=== PATIENT | female | born 1945 | race Caucasian/White ===

== ENCOUNTER → 2017-07-01 12:51 | Outpatient (CLI) | payer MEDICARE, OTHER, SELFPAY ==
--- NOTE | 2017-07-01 | IMM_PTH ---
PATIENT: YON RUBIO LOC: [facility] U#:[id number] AGE/SX: 79/F ROOM: RE07/01/[address]: Dr. Hood Burt MD : 1945 BED: DIS: SPEC #: [id number] RECD: 07/02/17 11:40 STATUS: CURT REQ #: [id number] PRAKASH: 07/01/17 00:[address]: Hood Burt DEPT: IMMUNOHISTOCHEMISTRY RECD BY: Teresa Marcano ENTERED: 07/02/17 11:41 SP TYPE: IMMUNO OTHR DR: MD Dr. Efrain Wu III, DO Tissues: Left breast, NOS Procedures: CK5-6 (add) CK8 (add) E-CAD (add) HER2 MAICO (add) KI-67 (add) P53 (add) ME (add) ER (initial) PHYSICIAN & INSTITUTION [place] [id number] SPECIMEN INFORMATION: Tissue Source: Left breast Clinical Info: Abnormal mammogram, previous history right breast cancer Specimen Number: [id number] CPT code: 24723, 97261 x4, 05687 x3 METHODOLOGY: Deparaffinized sections of prefer/formalin-fixed tissue or PAP/DQ stained slides are incubated with monoclonal/polyclonal antibodies/oligonucleotide probes. Localization is made via biotin free immunoperoxidase method. Appropriate controls are performed and reacted as expected. Results on target cell population are indicated in the following table: RESULTS: ANTIBODY / CLONE RESULT E-Cad (ECH-6) negative CK8 (62aibvC63) positive CK5-6 (D5 & 1684) negative Ki-67 (30-9) positive, low P53 (DO-7) positive, weak MORPHOMETRIC ANALYSIS ER (clone 6F11) >95%, strong ME (clone 16/1E2) >95%, strong Her-2Neu (clone CB11) 0 The prognostic test for HER2 is performed on formalin-fixed paraffin embedded tissue. A 3+ (positive) staining pattern is defined as intense, homogeneous, complete, circumferential membranous staining in >10% of contiguous tumor cells. A similar weak (2+) staining pattern is interpreted as equivocal. DEMI follow-up testing is recommended for all equivocal cases. Positivity/negativity for ER/ME is reported if > or < 1% of the tumor cells are immuno- reactive, respectively. The ASCO/CAP criteria is used for scoring. Reference: Journal of Clinical Oncology, 2013; 31:1474-8928 & 2010; 16:8926-8872. Duration of fixation: 9.5 Hrs; Sample Adequate: Yes. These assays have not been validated on decalcified tissues. Results should be interpreted with caution given the likelihood of false negativity on decalcified specimens. These tests were developed and their performance characteristics determined by [facility]. They may not have been cleared or approved by the U.S. Food and Drug Administration. The FDA has determined that such clearance or approval is not necessary. INTERPRETATION: Left breast, ultrasound-guided needle core biopsy: Invasive lobular carcinoma, nuclear grade 2. Positive for estrogen receptors (favorable prognostic indicator). Positive for progesterone receptors (favorable prognostic indicator). Negative for overexpression of DKV3aua. AM:krzysztof 07/05/17 Case has been reviewed in consultation with Dr. Champion who concurs with the above diagnosis. IDC:SJ
[2017-07-01 09:22] VITALS: BP 165/92; BMI 35.3
--- NOTE | 2017-07-01 09:30 | BRBX_PTH ---
PATIENT: YON RUBIO LOC: [facility] U#:[id number] AGE/SX: 79/F ROOM: RE07/01/[address]: Dr. Hood Burt MD : 1945 BED: DIS: SPEC #: [id number] RECD: 07/01/17 12:47 STATUS: CURT RONEL #: [id number] PRAKASH: 07/01/17 09:[address]: Hood Burt DEPT: SURGICAL PATHOLOGY RECD BY: Oumou Patino ENTERED: 07/01/17 14:13 SP TYPE: BREAST BX OTHR DR: MD Dr. Efrain Soni Jr., DO Tissues: Left breast, NOS Procedures: Surgery Specimen Level IV HEADER OPERATION: Ultrasound guided needle core biopsy, left breast PRE-OP DIAGNOSIS: Abnormal mammogram, previous history right breast cancer TISSUE SUBMITTED: Needle core biopsy, left breast ISCHEMIC TIME: <30 seconds FIXATION TIME: 9.5 hours MICROSCOPIC DIAGNOSIS Left breast, ultrasound-guided needle core biopsy: Invasive lobular carcinoma, nuclear grade 2 (1 cm in greatest length). ENOCH:krzysztof 07/02/17 COMMENT Immunohistochemistry ([id number]) supports the above diagnosis. ER/SD/Jui9mid studies are being performed on sections of tumor and the results from this study will be reported separately ([id number]). Please make reference to previous specimen ([id number]) right breast mass with axillary contents with diagnosis of invasive ductal carcinoma. Case has been reviewed in consultation with Dr. Angel who concurs with the above diagnosis. IDC:AM MICROSCOPIC DESCRIPTION Slides are reviewed. GROSS DESCRIPTION Received in fixative is one container labeled with the patient's name and designated needle core biopsy, left breast. The specimen consists of multiple elongated fragments of horne-yellow fibroadipose tissue that in aggregate measure 1.5 x 0.2 x 0.1 cm. The entire specimen is submitted in one cassette. / ENOCH:krzysztof 07/01/17 TC:0 CPT: 72786
== END ==
PROVIDERS: Family Provider Family Medicine; PCP Family Medicine; Visit Provider Surgery
DX: R92.8 Other abnormal and inconclusive findings on diagnostic imaging of breast (principal); Z85.3 Personal history of malignant neoplasm of breast
CPT/HCPCS: 88305; 88341; 88342

== ENCOUNTER 2017-07-15 10:09 | Observation (INO) | payer MEDICARE, OTHER, SELFPAY ==
[2017-07-15] VITALS (12 sets, daily range): BP systolic 125–160; BP diastolic 60–89; PULSE 76–104; RESP 14–18; TEMP 36.3–37; O2SAT 93–100; BMI 35.0
--- NOTE | 2017-07-15 | AXNB_PTH ---
PATIENT: YON RUBIO LOC: [facility] U#:[id number] AGE/SX: 71/F [place]OM: [facility] [place] RE07/15/[address]: Dr. Hood Burt MD : 1945 BED: 1 DIS: 07/16/2017 SPEC #: [id number] RECD: 07/15/17 09:05 STATUS: CURT RETommy #: [id number] PRAKASH: 07/15/17 00:[address]: Hood Burt DEPT: SURGICAL PATHOLOGY RECD BY: Teresa Marcano ENTERED: 07/15/17 10:31 SP TYPE: AX NODE BX OTHR DR: Dr. Roscoe Chaves III, MD Tissues: A - Axillary lymph node, NOS B - Axillary lymph node, NOS C - Axillary lymph node, NOS D - Left breast, NOS Procedures: Frozen Section (charge) Frozen Section Add'l ([facility] Surgery Specimen Level V Frozen (no charge) HEADER OPERATION: Left breast ultrasound-guided wire localization lumpectomy PRE-OP DIAGNOSIS: Invasive lobular breast cancer, left breast TISSUE SUBMITTED: A ? Left axillary sentinel lymph node tissue for FS at 0902, B ? Additional left axillary sentinel lymph node tissue for FS at 09, C ? Deep left axillary sentinel lymph node tissue for FS at 09, D - Left breast lumpectomy tissue to mammo at 0857, suture markings ? single long ? medial, double short ? superior, double long ? inferior FROZEN SECTION DIAGNOSIS A. Left axillary sentinel lymph node tissue, biopsy: Two out of two lymph nodes, negative for metastatic carcinoma. B. Additional left axillary sentinel lymph node tissue, biopsy: Two out of two lymph nodes, negative for metastatic carcinoma. C. Deep left axillary sentinel lymph node tissue, biopsy: One lymph node positive for metastatic carcinoma. SJ:krzysztof 07/15/17 MICROSCOPIC DIAGNOSIS A. Left axillary sentinel lymph node, biopsy: Two out of two lymph nodes, negative for metastatic carcinoma. See comment. B. Additional left axillary sentinel lymph node, biopsy: One out of two lymph nodes, positive for micrometastatic carcinoma. See comment. C. Deep left axillary sentinel lymph node tissue, biopsy: One lymph node, positive for metastatic carcinoma. See comment. D. Left breast, lumpectomy with needle localization: Invasive lobular carcinoma. The tumor is focally present at the anterior margin and the tumor is 0.1 cm away from the medial margin and <0.1 cm away from the superior margin. See cancer summary below. INVASIVE BREAST CANCER SUMMARY: Specimen ? partial breast Procedure ? excision with wire-guided localization Lymph node sampling ? sentinel lymph nodes Specimen integrity ? single intact specimen Specimen size ? 14 x 10 x 5 cm Specimen laterality - left Tumor site ? not specified Tumor size ? 6 x 4 x 2.5 cm Tumor focality ? single focus of invasive carcinoma Macroscopic and Microscopic extent of tumor: Skin ? invasive carcinoma does not invade into the dermis or epidermis. Nipple ? not applicable Skeletal muscle ? no skeletal muscle present Ductal carcinoma in situ (DCIS) ? not present Lobular carcinoma in situ (LCIS) ? not identified Histologic type of invasive carcinoma ? invasive lobular carcinoma Histologic Grade ([place] grade): Glandular/tubular differentiation - score 3 Nuclear pleomorphism - score 2 Mitotic count ? score 1 Overall grade - 2 (score of 6) Margins: Margins focally involved by invasive carcinoma. Invasive lobular carcinoma is present focally at the anterior margin. The invasive lobular carcinoma focally is present <0.1 cm away from the superior margin. Invasive lobular carcinoma is 0.1 cm away from the medial margin. Treatment effect ? effect of presurgical (neoadjuvant) therapy - no known presurgical therapy. Lymph-Vascular invasion ? not identified Dermal lymph-vascular invasion ? not identified Lymph nodes: Number of sentinel lymph nodes examined - 5 Total number of lymph nodes examined (sentinel and nonsentinel) - 5 Number of lymph nodes with macrometastases - 1 Number of lymph nodes with micrometastases - 1 Number of lymph nodes with isolated tumor cells - 0 Extranodal extension - present Method of evaluation of sentinel lymph nodes - H & E, multiple levels and IHC (specimen A & B). Additional pathologic findings ? fibrocystic changes and intraductal hyperplasia without atypia. Ancillary studies - previously performed on section of tumor ([id number] / [id number]). ER ? positive (>95%, strong) IA - positive (>95%, strong) Her2 roel - 0 Her2 by dual DEMI ? not performed Microcalcifications ? present in invasive carcinoma. Clinical history - Please make reference to previous specimen ([id number]) left breast, ultrasound-guided needle core biopsy with diagnosis of invasive lobular carcinoma. PATHOLOGIC STAGE: pT3 pN1a(sn) Mx The above summary is in compliance with [employer] [place] Path[employer] (CAP) Cancer Protocols Checklist and [place] Joint Committee on Cancer (AJCC), Staging Manual, 8th Ed. SJ:krzysztof 07/21/17 COMMENT Please make reference to previous specimen ([id number]) right breast mass with axillary contents with diagnosis of invasive ductal carcinoma. B. The focus of micrometastasis measures 1.75 mm in greatest dimension. Extranodal extension is not seen. C. The focus of metastasis measure 1.1 cm in greatest dimension. Extranodal extension is present. A, B & D. Immunohistochemistry ([id number]) supports the above diagnosis. MICROSCOPIC DESCRIPTION Slides are reviewed. GROSS DESCRIPTION A - Received fresh for frozen section diagnosis labeled with the patient's name is a specimen designated left axillary sentinel lymph node tissue. The specimen consists of two pieces of yellow adipose tissue containing nodule measuring in aggregate 4.5 x 3.5 x 2 cm. Two lymph nodes are identified measuring 2 and 3 cm in greatest dimension. The lymph nodes are submitted in entirety for frozen section diagnosis as follows: 1 ? frozen section, one bisected lymph node, 2 & 3 - frozen section, one bisected lymph node. / SJ:rg 07/15/17 B - Received fresh for frozen section diagnosis labeled with the patient's name is a specimen designated additional left axillary lymph node tissue. The specimen consists of two pieces of horne-yellow adipose tissue measuring in aggregate 4 x 4.5 x 1 cm. Two lymph nodes are identified measuring 1 and 2 cm in greatest dimension. The lymph nodes are submitted in entirety for frozen section diagnosis as follows: 1 ? one lymph node, 2 - one bisected lymph node. / SJ:rg 2/22/18 C - Received fresh for frozen section diagnosis labeled with the patient's name is a specimen designated deep left axillary sentinel lymph node tissue. The specimen consists of a piece of adipose tissue containing one nodule measuring 2.5 x 2 x 1 cm. The lymph node measures 1.5 cm in greatest dimension. The lymph node is submitted in entirety for frozen section diagnosis in one cassette as follows: one bisected lymph node. / : 07/15/17 D - Received fresh for intraoperative consultation labeled with the patient's name is a specimen designated left breast lumpectomy tissue. The specimen consists of a piece of fibroadipose tissue with needle localization measuring 14 x 10 x 5 cm. The specimen is oriented as follows: single long ? medial, double short ? superior, double long ? inferior. The specimen is inked as follows: anterior ? yellow, posterior ? black, superior ? blue, inferior ? green, medial ? red and lateral ? orange. A piece of skin is also noted laterally which measures 2 x 0.5 cm. Serial sections reveal a tumor mass measuring 6 x 4 x 2.5 cm. This mass is very close to the anterior and superior margin of the specimen. This information is conveyed to the surgeon intraoperatively. Sections of the rest of the specimen reveals horne-yellow adipose cut surfaces mixed with horne-white fibrous areas. Antis[employer] Weapons [employer] sections are submitted in 12 cassettes as follows: 1 ? perpendicular medial and lateral margins, 2 ? more sections of perpendicular margin, 3 ? perpendicular posterior and inferior margins, 4-8 ? hobbies and crafts sales representative sections of tumor with closest anterior margin, 9 ? closest superior margin perpendicular, 10 ? hobbies and crafts sales representative section adjacent to the tumor, 11 & 12 ? hobbies and crafts sales representative sections away from the tumor. / : 07/16/17 More sections are submitted as follows: 13 ? skin with adjacent lateral margin. / : 07/20/17 TC:0 CPT: 29882 x4, 12395 x3, 64852 x3, 19397 ADDENDUM ADDENDUM ADDENDUM ADDENDUM ADDENDUM ADDENDUM ADDENDUM ADDENDUM 09/08/2017 14:14 ADDENDUM 09/08/2017 14:14 ADDENDUM 09/08/2017 14:14 ADDENDUM 09/08/2017 14:14 ADDENDUM 09/08/2017 14:14 An order for Oncotype testing was received from Dr. Crawford. This necessitated case review, block and slide selection by pathologist at [facility]. Breast Cancer Recurrence Score = 15 Results of the complete Oncotype testing (Spotlight report) are viewable in EMR under: Reports - Pathology - Lab Pathology Report, Scanned.
--- NOTE | 2017-07-15 | IMM_PTH ---
PATIENT: YON RUBIO LOC: [facility] U#:[id number] AGE/SX: 71/F [place] [facility] [place]: Dr. Hood Burt MD : 1945 BED: 1 DIS: 07/16/2017 SPEC #: [id number] RECD: 07/19/17 12:57 STATUS: CURT REQ #: [id number] PRAKASH: 07/15/17 00:[address]: Hood Burt DEPT: IMMUNOHISTOCHEMISTRY RECD BY: Teresa Marcano ENTERED: 07/19/17 12:59 SP TYPE: IMMUNO OTHR DR: Dr. Roscoe Chaves III, MD Tissues: A - Axillary lymph node, NOS B - Axillary lymph node, NOS D - Left breast, NOS Procedures: E-CAD (initial) CK7 (add) Pankeratin (initial) Pankeratin (add) PHYSICIAN & INSTITUTION [place] [id number] SPECIMEN INFORMATION: Tissue Source: A ? Left axillary sentinel lymph node tissue, B ? Additional left axillary sentinel lymph node tissue, D ? Left breast, lumpectomy Clinical Info: Invasive lobular breast cancer, left Specimen Number: [id number] A1, A2, A3, B1, B2, D6 CPT code: 38452 x3, 42058 x8 METHODOLOGY: Deparaffinized sections of prefer/formalin-fixed tissue or PAP/DQ stained slides are incubated with monoclonal/polyclonal antibodies/oligonucleotide probes. Localization is made via biotin free immunoperoxidase method. Appropriate controls are performed and reacted as expected. Results on target cell population are indicated in the following table: RESULTS: ANTIBODY / CLONE RESULT Block A1 AE1-3 (AE1/AE3/PCK26) negative CK7 (OV-TL12/30) negative Block A2 AE1-3 (AE1/AE3/PCK26) negative CK7 (OV-TL12/30) negative Block A3 AE1-3 (AE1/AE3/PCK26) negative CK7 (OV-TL12/30) negative Block B1 AE1-3 (AE1/AE3/PCK26) negative CK7 (OV-TL12/30) negative Block B2 AE1-3 (AE1/AE3/PCK26) positive, micrometastasis CK7 (OV-TL12/30) positive, micrometastasis Block D6 E-Cad (ECH-6) negative These tests were developed and their performance characteristics determined by [facility]. They may not have been cleared or approved by the U.S. Food and Drug Administration. The FDA has determined that such clearance or approval is not necessary. INTERPRETATION: A. Left axillary sentinel lymph node tissue, biopsy: Two out of two lymph nodes, negative for metastatic carcinoma. B. Additional left axillary sentinel lymph node tissue, biopsy: One out of two lymph nodes positive for micrometastatic carcinoma. D. Left breast, lumpectomy: Invasive lobular carcinoma. SJ:krzysztof 07/21/17
[2017-07-15] MEDS: Cefazolin 2 GM in 0.9% Normal Saline 100 ML IV (08:22)
[2017-07-15] MEDS: Isosulfan Blue 1% 5 ML Vial (08:29)
--- NOTE | 2017-07-15 09:00 | HPBI_ITS ---
SURGICAL BREAST SPECIMEN RADIOGRAPH CLINICAL: Document presence of mass in biopsy specimen. FINDINGS: Specimen shows presence of mass. Electronically Signed: Zachary Yee MD at 9:28 EST Tel [phone], Service support , HPBI/Breast Biopsy Specimen
--- NOTE | 2017-07-15 09:45 | OP.PCM_ITS ---
Problem List (1) Breast cancer, female Status: Acute Qualifiers: Breast location: upper outer quadrant of breast Estrogen receptor status: positive Laterality: left Qualified Code(s): C50.412 - Malignant neoplasm of upper-outer quadrant of left female breast; Z17.0 - Estrogen receptor positive status [ER+] Report of Operation Date of Procedure: 07/15/17 Pre-Operative Diagnosis: c50.412 female breast cancer left breast upper outer quadrant Post-Operative Diagnosis: Same Surgery/Procedure Performed:: 1. 05120 Ultrasound-guided wire localization of left breast cancer. 2. 56071 Injection of 5 cc of isosulfan blue. 3. 68274 sentinel lymph node biopsy. 4. 27651 left partial mastectomy with axillary node dissection. 5. 82670 removal port Type of Anesthesia:: General Anesthesiologist: Jose Freedman Drains: 15 round David-Chong drain Estimated Blood Loss (mL): 50 cc Fluids Replaced: 900 cc Description of Procedure: Patient was brought into the operating room and placed in the supine position. Under excellent general anesthetic ultrasound was used to identify the malignancy in the upper outer quadrant of the left breast. I prepped the skin with alcohol and under ultrasound guidance I placed a Kopan's wire through the lesion. The wire was then cut. I wiped alcohol around the areolar complex and injected 5 cc of isosulfan blue in a circumareolar fashion. I massaged the breast for 5 minutes. The breast and axillary as well as the neck on the left side area were then sterilely prepped and draped in the usual fashion. I made an incision in the upper outer quadrant ellipsing around my previous biopsy site. Tito retractors were placed into the wound and a wide lumpectomy was performed in the upper outer quadrant going all the way down to the pectoralis major coming laterally. I marked my specimen single long medial, double short superior, double long inferior, and skin and wire coming out laterally. I made sure on the anterior superior aspect to stay very close to the skin. I then dissected into the axillary area identified a blue lymph node and took out 2 lymph nodes. As I started to inspect deeper I felt hard lymph nodes and decided that it was best that I do a standard axillary level 1 dissection. I sent a total of approximately 3 other lymph nodes out. Identified the axillary vein as well as the thoracodorsal and long thoracic nerve. I irrigated out my wound. I decided that I would take the catheter out from inside the dissection cavity. I dissected was able to identify the catheter cut the Prolene that were attached to it and started to pull the catheter out it was not coming out easily I dissected all the way up into the neck and at that point I decided to make a counterincision in the neck. With my counterincision in the neck I dissected all the way down to the internal jugular vein as I was pulling the catheter out I felt that given thought that I was able to pull it out carefully when I inspected the tip of my catheter I believe that I may have left and broken off a piece into the superior vena cava. I had good hemostasis. I brought in fluoroscopy to confirm that I think that I saw a piece of the catheter in the superior vena cava it did not appear to be floating around. I made a decision then that I would not do anything further as far as dissecting in the neck. I got my frozen section back, a lymph nodes in my deep lymph node was positive and some I dissected of the axillary area was justified. I inspected the axillary area again I saw no other suspicious lymph nodes in the area. I placed a 15 round David-Chong drain into the wound sutured it to the skin with 3-0 nylon. The lumpectomy site was closed with deep dermal stitches of 3- 0 Vicryl then a running 4-0 Monocryl. The neck incision was closed with deep dermal stitches of 3-0 Vicryl in a running 4-0 Monocryl. I obtained a portable chest x-ray but it was not good quality but I still think I see a piece of the catheter in the superior vena cava. I am going to obtain a standard chest x-ray and speak to the interventional radiologist to see if this is something that they might be able to remove. I am unsure if this is just being held on by a small piece of fibrinous material or if this is significantly stuck with scar tissue into the superior vena cava. The catheter that was in there was greater than 10 years old. - Admit VTE Documentation VTE Present on Admission: No VTE Mechan Device Prophylaxis: SCD's VTE Pharm Prophylaxis ordered?: No Reason prophylaxis not ordered:: Treatment Not Indicated
[2017-07-15] MEDS: Bupivacaine 0.25% 30 ML Vial (09:51)
--- NOTE | 2017-07-15 10:09 | RAD_ITS ---
STUDY: X-RAY CHEST REASON FOR EXAM: Female, 71 years old. Left vascular port removed. TECHNIQUE: Single AP portable view of the chest. COMPARISON: Comparison is made with prior study dated January 21, 2017. FINDINGS: The left-sided gerson catheter has been removed. The distal portion of the catheter is seen within the superior vena cava. Surgical clips are seen in the right axillary region. There is elevation of the right hemidiaphragm. Mild increased markings in the right midlung. This may represent atelectasis and/or early infiltrate. There is no demonstrated pleural abnormality. Normal size heart. Normal mediastinum and lazaro. Normal visualized pulmonary arteries. Normal visualized aortic arch and descending thoracic aorta. Normal visualized thoracic spine. There is degenerative osteoarthritis of the bilateral shoulders. There is no demonstrated abnormality of the visualized soft tissue structures of the upper abdomen. RAD/Chest 1 View (Portable) IMPRESSION: The distal portion of the gerson catheter is seen within the superior vena cava. Increased markings in the right mid lung. Electronically Signed: Zachary Yee MD at 10:53 EST Tel [phone], Service support ,
[2017-07-15 10:16] LABS: Bedside Glucose 92 mg/dL (70-110)
--- NOTE | 2017-07-15 11:19 | CT_ITS ---
STUDY: CT CHEST WITHOUT CONTRAST REASON FOR EXAM: Female, 71 years old. Removal of left portacatheter with possible remnant in the superior vena cava. History of prior left breast carcinoma and lumpectomy. RADIATION DOSAGE (If Supplied By Facility): CTDIvol = ( 14.49 ) mGy, DLP = ( 546.78 ) mGycm TECHNIQUE: Transaxial imaging was performed without the administration of intravenous contrast material. Multiplanar coronal and sagittal images were reformatted. Individualized dose optimization techniques were used for this CT. COMPARISON: Comparison is made with prior chest radiograph done earlier in the day. FINDINGS: Subcutaneous emphysema is seen in the left lower cervical region in keeping with the recent catheter removal. This also evidence for postsurgical changes in the left breast secondary to lumpectomy with placement of a drainage catheter seen in the breast and left axillary region. Residual portion of the catheter is seen within the superior vena cava, left brachiocephalic vein and proximal portion of the left subclavian vein. This is seen along the anterior wall of the venous structures suggestive of possible adherent to the endothelium. Increased linear markings at both lung bases suggestive of bibasilar atelectasis. Increased markings at the lung apices worse on the right side suggestive of a scarring. There is no demonstrated pleural abnormality. There are calcifications of the coronary arteries. There are multiple small lymph nodes within the mediastinum, which are normal in size and morphology most compatible with reactive lymph hyperplasia. Normal hilar regions. Normal unenhanced pulmonary arteries. There is atherosclerotic calcification of the aortic arch . There are multi-level degenerative changes of the thoracic spine. There is no demonstrated abnormality of the visualized upper abdomen. CT/Chest without Contrast IMPRESSION: A piece of the aortic catheter is seen within the superior vena cava, left brachiocephalic vein and proximal portion of the left subclavian vein. This lies along the anterior aspect of the vessels. This may represent endothelialization. Status post left breast surgery with postoperative changes. Electronically Signed: Zachary Yee MD at 12:04 EST Tel [phone], Service support ,
[2017-07-15] MEDS: Lactated Ringers 1,000 ML 100 ML IV ×2 (12:12→23:43)
[2017-07-15] MEDS: Losartan Potassium 50 MG Tablet PO (14:54)
[2017-07-15] MEDS: Cefazolin 1 GM/50 ML BAG IV ×2 (14:57→21:16)
--- NOTE | 2017-07-15 16:25 | NURSING ---
Care assumed at this time.
[2017-07-15] MEDS: oxyCODONE 5 MG Tablet PO (20:12)
[2017-07-16] VITALS (7 sets, daily range): BP systolic 125–147; BP diastolic 65–77; PULSE 79–102; RESP 16–18; TEMP 36.8–38.1; O2SAT 93–97
[2017-07-16] MEDS: Cefazolin 1 GM/50 ML BAG IV (06:03)
[2017-07-16] MEDS: HYDROCHLOROTHIAZIDE 12.5 MG CAPSULE PO (09:14)
--- NOTE | 2017-07-16 10:50 | NURSING ---
Was asked to see patient for Reach to Recovery referral. ACS number given to patient if she would be interested in the Reach to Recovery program. Pt has been through breast cancer in the past and states she knows others as well. Local support group information given as well. reviewed dressing and drain care wit patient and . demonstrated all of this with them as well. teaching packet given as well as form to record SISSY drainage. Pt aware to bring form to follow up appointment as well. Pt and deny questions.
[2017-07-16] MEDS: Lactated Ringers 1,000 ML 100 ML IV (11:07)
--- NOTE | 2017-07-16 12:16 | PCM.DC.BS ---
Discharge Diet: No Restrictions Discharge Activity: May Not Drive - for 2-3 days or while taking narcotic pain meds. May shower in (days): 1 Lifting Restrictions: 10 pounds for 1 week. Call your doctor if your incision/area has: Continuous Slow Oozing, Sudden Increased Bleeding Call your doctor if you observe: Fever of 101 or Higher Suture Line Care: Avoid Pulling/Pushing, Avoid Pinching/Bending Remove Dressing in (days):: 1 - Remove bulky dressing tomorrow. May leave any opsite dressing for 3-4 days. Keep dressing in place until your follow-up appointment. Additional Dressing/Incision Instructions:: Remove bulky dressing tomorrow. May leave any opsite dressing for 3-4 days. Keep dressing in place until your follow-up appointment. Allergies/Adverse Reactions: Allergies atorvastatin [From Lipitor] Allergy (Mild, Verified 07/14/17 13:20) Unknown ergocalciferol (vitamin D2) [From Vitamin D2] Allergy (Mild, Verified 07/14/17 13:20) Unknown Medications to take at Discharge hydrochlorothiazide 12.5 mg tablet 12.5 mg PO QDAY 07/01/17 losartan 50 mg tablet 50 mg PO LUNCH 07/01/17 metformin 500 mg tablet 500 mg PO DAILY 07/01/17 potassium chloride ER 20 mEq tablet,extended release 20 meq PO LUNCH 07/01/17 Loratadine [Claritin] 10 mg PO PRN PRN 07/14/17 Primary Care Physician: Roscoe Chaves III, MD [Primary Care Provider] -
--- NOTE | 2017-07-16 12:17 | PCM.PN.SRG ---
Patient Problems: Active and Suspected Problems (Last Reviewed 07/14/17 @ 16:38 by Hood Burt MD) Breast cancer, female (Acute) Subjective: CAT scan of the chest obtained yesterday showed that the catheter had epithelialized into the superior vena cava. I do not believe that there is anything further surgical we need to do for her at this time. Her pain is well controlled. Objective: Dressing is dry - Physical Exam Vital Signs Temp Pulse Resp BP Pulse Ox 99.8 F H 95 18 140/65 H 93 07/16/17 09:08 07/16/17 10:00 07/16/17 09:08 07/16/17 09:08 07/16/17 09:08 Oxygen Flow Rate 1 Oxygen Delivery Method Room Air Weight: 204 lb 2.369 oz Body Mass Index (BMI) 35.0 Finger Stick Blood Glucose 92 Intake and Output for Last 24 Hours 07/14/17 07/15/17 07/16/17 23:59 23:59 23:59 Intake Total 3516 / 3516 627 / 627 Output Total 330 / 330 223 / 223 Balance 3186 / 3186 404 / 404 Assessment/Plan Active and Suspected Problems (Last Reviewed 07/14/17 @ 16:38 by Hood Burt MD) Breast cancer, female (Acute) Postoperative day #1 Patient is stable to be discharged today.
[2017-07-16] MEDS: Losartan Potassium 50 MG Tablet PO (12:29)
== END 2017-07-16 13:44 | disposition home or self-care (01) ==
LOC: SDC 11:19
PROVIDERS: Admitting Provider Surgery; Family Provider Family Medicine; PCP Family Medicine; Visit Provider Surgery
PROC: (CPT 19301; principal; 2017-07-15 08:00)
DX: C50.412 Malignant neoplasm of upper-outer quadrant of left female breast (principal); Z17.0 Estrogen receptor positive status [ER+]; Z79.899 Other long term (current) drug therapy; I10 Essential (primary) hypertension; Z79.84 Long term (current) use of oral hypoglycemic drugs; K58.9 Irritable bowel syndrome, unspecified; E11.9 Type 2 diabetes mellitus without complications
CPT/HCPCS: 19302; 36589; 38900; 71045; 71250; 76000; 76098; 82962; 88305; 88307; 88331; 88332; 88341; 88342; 96361; 96365; 96366; 99218; J7120; G0378; G0379; J2405; Q9968

== ENCOUNTER 2017-07-29 12:51 | Observation (INO) | payer MEDICARE, OTHER, SELFPAY ==
[2017-07-29] VITALS (11 sets, daily range): BP systolic 116–174; BP diastolic 66–89; PULSE 90–109; RESP 16–18; TEMP 36.4–37; O2SAT 92–100; BMI 34.7
--- NOTE | 2017-07-29 | BRBX_PTH ---
PATIENT: YON RUBIO LOC: [facility] U#:[id number] AGE/SX: 71/F ROOM: OH315 RE07/29/[address]: Dr. Hood Burt MD : 1945 BED: 1 DIS: 07/30/2017 SPEC #: [id number] RECD: 07/29/17 14:27 STATUS: CURT RETommy #: [id number] PRAKASH: 07/29/17 00:[address]: Hood Burt DEPT: SURGICAL PATHOLOGY RECD BY: Steven Greene ENTERED: 07/29/17 14:28 SP TYPE: BREAST BX OTHR DR: Dr. Roscoe Chaves III, MD Tissues: A - Left breast, NOS B - Left breast, NOS C - Left breast, NOS D - Left breast, NOS E - Axilla, NOS Procedures: Surgery Specimen Level IV HEADER OPERATION: Brest lumpectomy, revision PRE-OP DIAGNOSIS: Malignant neoplasm left breast upper outer quadrant, ER positive TISSUE SUBMITTED: A ? Left breast inferior medial margin, B ? Left breast medial superior margin, C ? Left breast old scar, D ? Left breast most medial margin FIXATION TIME: 30 hours MICROSCOPIC DIAGNOSIS A. Left breast, inferior medial margin: A few foci of invasive lobular carcinoma. Changes consistent with previous biopsy site. See comment. Focal intraductal hyperplasia without atypia. B. Left breast, medial superior margin: A few foci of invasive lobular carcinoma. Changes consistent with previous biopsy site. Focal intraductal hyperplasia without atypia. A fibrous nodule with calcification. See comment. C. Old scar, anterior left breast: Skin with dermal fibrosis consistent with scar. Negative for carcinoma. D. Most medial margin, left breast: Negative for carcinoma. Changes consistent with previous biopsy site. Intraductal hyperplasia without atypia. ENOCH:krzysztof 08/03/17 COMMENT A. The specimen is not oriented. A few foci of invasive lobular carcinoma is present at one resection margin presumed to be old resection margin. The largest focus of carcinoma measures 0.4 cm in greatest dimension. The presumed new margin is free of tumor and 0.6 cm away from the tumor. Skeletal muscle is also noted in the specimen and free of tumor. B. The largest focus of invasive carcinoma measures 0.5 cm in greatest dimension. A focus of invasive carcinoma is also present at one resection margin presumed to be old resection margin. The presumed new resection margin is 0.4 cm away from the tumor. A & B. Immunohistochemistry ([id number]) supports the above diagnosis. Please make reference to previous specimen ([id number]) left breast, lumpectomy with needle localization with diagnosis of invasive lobular carcinoma. Please refer to the cancer summary in specimen [id number]. Tumor staging remains the same. Case has been reviewed in consultation with Dr. Angel who concurs with the above diagnosis. IDC:AM MICROSCOPIC DESCRIPTION Slides are reviewed. GROSS DESCRIPTION A - Received in fixative is one container labeled with the patient's name and designated inferior medial margin left breast. The specimen consists of an irregular fragment of yellow fatty tissue measuring 5.5 x 4 x 1.7 cm. No orientation is provided. The external surface is inked in black ink and the specimen is serially sectioned to reveal yellow cut surfaces without mass lesions. The specimen is totally submitted in six cassettes. / AM: 07/30/17 B - Received in fixative is one container labeled with the patient's name and designated medial superior margin left breast. The specimen consists of an irregular fragment of yellow fatty tissue measuring 9 x 5 x 1.5 cm. No orientation is provided. The specimen is inked and serially sectioned to reveal homogenous yellow cut surfaces. No mass lesion is identified. Liability Claims Representative sections are submitted in six cassettes. / AM: 07/30/17 More sections are submitted in four more cassettes, 11-30. / SJ: 08/02/17 C - Received in fixative is one container labeled with the patient's name and designated old scar anterior left. The specimen consists of an ellipse of light horne skin with attached soft tissue measuring 7 x 1 x 0.6 cm. No cutaneous mass lesions are identified. Liability Claims Representative sections are submitted in one cassette. D - Received in fixative is one container labeled with the patient's name and designated most medial margin left. The specimen consists of an irregular fragment of horne-yellow fibrofatty tissue measuring 4 x 3.2 x 1.2 cm. No orientation is provided. The external surface is inked and the specimen serially sectioned to reveal yellow cut surfaces. The specimen is sectioned and submitted in its entirety in four cassettes. / AM:krzysztof 07/30/17 TC:0 CPT: 04104 x4
--- NOTE | 2017-07-29 | IMM_PTH ---
PATIENT: YON RUBIO LOC: MS3 U#:[id number] AGE/SX: 71/F ROOM: MS315 RE07/29/[address]: Dr. Hood Burt MD : 1945 BED: 1 DIS: 07/30/2017 SPEC #: [id number] RECD: 08/03/17 10:37 STATUS: CURT REQ #: [id number] PRAKASH: 07/29/17 00:[address]: Hood Burt DEPT: IMMUNOHISTOCHEMISTRY RECD BY: Teresa Marcano ENTERED: 08/03/17 10:42 SP TYPE: IMMUNO OTHR DR: Dr. Roscoe Chaves III, MD Tissues: A - Left breast, NOS B - Left breast, NOS Procedures: E-CAD (initial) CK8 (add) E-CAD (add) PHYSICIAN & INSTITUTION [place] [id number] SPECIMEN INFORMATION: Tissue Source: A ? Left breast inferior medial margin, B ? Left breast medial superior margin Clinical Info: Malignant neoplasm left breast UOQ, ER positive Specimen Number: [id number] A4, A5, B4 CPT code: 92335 x2, 99086 x4 METHODOLOGY: Deparaffinized sections of prefer/formalin-fixed tissue or PAP/DQ stained slides are incubated with monoclonal/polyclonal antibodies/oligonucleotide probes. Localization is made via biotin free immunoperoxidase method. Appropriate controls are performed and reacted as expected. Results on target cell population are indicated in the following table: RESULTS: ANTIBODY / CLONE RESULT Block A4 E-Cad (ECH-6) negative CK8 (45dwtqT16) positive Block A5 E-Cad (ECH-6) negative CK8 (61bgdlR41) positive Block B4 E-Cad (ECH-6) negative CK8 (79acmrZ59) positive These tests were developed and their performance characteristics determined by [facility]. They may not have been cleared or approved by the U.[place]. Food and Drug Administration. The FDA has determined that such clearance or approval is not necessary. INTERPRETATION: A. Left breast inferior medial margin: Invasive lobular carcinoma. B. Left breast medial superior margin: Invasive lobular carcinoma. SJ:krzysztof 08/03/17
[2017-07-29 07:55] LABS: Bedside Glucose 110 mg/dL (70-110)
[2017-07-29] MEDS: Cefazolin 2 GM in 0.9% Normal Saline 100 ML IV (09:58)
[2017-07-29] MEDS: Bupivacaine Mpf 0.5% 30 ML VIAL (10:30)
--- NOTE | 2017-07-29 10:36 | PCM.OPRPT ---
Problem List (1) Breast cancer, female Status: Acute Qualifiers: Breast location: upper outer quadrant of breast Estrogen receptor status: positive Laterality: left Qualified Code(s): C50.412 - Malignant neoplasm of upper-outer quadrant of left female breast; Z17.0 - Estrogen receptor positive status [ER+] Report of Operation Date of Procedure: 07/29/17 Pre-Operative Diagnosis: c50.412 female breast cancer upper outer quadrant left breast. z17.0 ER + Post-Operative Diagnosis: same Surgery/Procedure Performed:: 1. 45887 Placement of a right IJ PowerPort. 2 46361-95 Redo lumpectomy left upper outer quadrant of the breast Type of Anesthesia:: General Anesthesiologist: Francis Boston Specimen's removed: Breast tissue from upper outer quadrant of left breast, superior and medial tissue Description of Procedure: Patient was brought into the operating room and placed in the supine position. Under excellent LMA anesthesia I ultrasound the right neck and identified the internal jugular vein and marked the neck and chest appropriately. The neck and chest were then sterilely prepped and draped in the usual fashion. Local was injected into the neck. Seldinger's technique was used to gain access to the right internal jugular vein. Guidewire was placed over the needle the needle was removed. Fluoroscopy was used to confirm proper placement of the guidewire. I injected local in the chest opened up the previous incision used electrocautery and created a pocket for the port. A skin perri was made in the neck dilator was placed over the guidewire removed the dilator and sheath were placed over the guidewire and the dilator and guidewire were removed. I tunneled from the pocket over the collarbone into the neck and brought the catheter down. I used fluoroscopy to confirm proper length of the catheter I cut the catheter placed the locking hub on the catheter within the port on the catheter. I secured the 2 with the locking hub. It flushed and irrigated well and I flushed with 5 cc of hep flush. The port was sutured into the pocket with 2 sutures of 2-0 Prolene skin incisions were then brought together with deep dermal stitches of 3-0 Vicryl. Dermabond was applied sterile dressings were applied and the patient tolerated this part of the procedure well. The left chest was then prepped I remove the drain it was then sterilely prepped and draped in the usual fashion. I ellipsed out the old skin incision and sent it to pathology for permanent sectioning. With use of electrocautery I then removed starting from the medial inferiorly going medially to anteriorly superiorly and removed all the breast tissue here. I sent it to pathology. There were 3 specimens #1 inferior medial margin #2 medial superior margin and #3 most medial margin. I irrigated out the wound I placed a new drain into the old drain site suturing it in place with a 3-0 nylon. Yo was placed into the wound cavity the wound was then closed with deep dermal stitches of 3-0 Vicryl. Sterile dressings were applied Zi wrap was applied and the patient tolerated the procedure well. If my margins here are positive I do not think we have any other choice but to do a salvage mastectomy on her.
--- NOTE | 2017-07-29 10:40 | OP.PCM_ITS ---
Problem List (1) Breast cancer, female Status: Acute Qualifiers: Breast location: upper outer quadrant of breast Estrogen receptor status: positive Laterality: left Qualified Code(s): C50.412 - Malignant neoplasm of upper-outer quadrant of left female breast; Z17.0 - Estrogen receptor positive status [ER+] Report of Operation Date of Procedure: 07/29/17 Pre-Operative Diagnosis: c50.412 female breast cancer upper outer quadrant left breast. z17.0 ER + Post-Operative Diagnosis: same Surgery/Procedure Performed:: 1. 69549 Placement of a right IJ PowerPort. 2 58327-74 Redo lumpectomy left upper outer quadrant of the breast Type of Anesthesia:: General Anesthesiologist: Francis Boston Specimen's removed: Breast tissue from upper outer quadrant of left breast, superior and medial tissue Description of Procedure: Patient was brought into the operating room and placed in the supine position. Under excellent LMA anesthesia I ultrasound the right neck and identified the internal jugular vein and marked the neck and chest appropriately. The neck and chest were then sterilely prepped and draped in the usual fashion. Local was injected into the neck. Seldinger's technique was used to gain access to the right internal jugular vein. Guidewire was placed over the needle the needle was removed. Fluoroscopy was used to confirm proper placement of the guidewire. I injected local in the chest opened up the previous incision used electrocautery and created a pocket for the port. A skin perri was made in the neck dilator was placed over the guidewire removed the dilator and sheath were placed over the guidewire and the dilator and guidewire were removed. I tunneled from the pocket over the collarbone into the neck and brought the catheter down. I used fluoroscopy to confirm proper length of the catheter I cut the catheter placed the locking hub on the catheter within the port on the catheter. I secured the 2 with the locking hub. It flushed and irrigated well and I flushed with 5 cc of hep flush. The port was sutured into the pocket with 2 sutures of 2-0 Prolene skin incisions were then brought together with deep dermal stitches of 3-0 Vicryl. Dermabond was applied sterile dressings were applied and the patient tolerated this part of the procedure well. The left chest was then prepped I remove the drain it was then sterilely prepped and draped in the usual fashion. I ellipsed out the old skin incision and sent it to pathology for permanent sectioning. With use of electrocautery I then removed starting from the medial inferiorly going medially to anteriorly superiorly and removed all the breast tissue here. I sent it to pathology. There were 3 specimens #1 inferior medial margin #2 medial superior margin and # 3 most medial margin. I irrigated out the wound I placed a new drain into the old drain site suturing it in place with a 3-0 nylon. Yo was placed into the wound cavity the wound was then closed with deep dermal stitches of 3-0 Vicryl. Sterile dressings were applied Zi wrap was applied and the patient tolerated the procedure well. If my margins here are positive I do not think we have any other choice but to do a salvage mastectomy on her.
--- NOTE | 2017-07-29 12:10 | RAD_ITS ---
STUDY: X-RAY CHEST REASON FOR EXAM: Female, 71 years old. Port line placement TECHNIQUE: Single AP portable view of the chest. COMPARISON: 07/15/2017 FINDINGS: Right chest wall Mediport noted with tip in the mid SVC. No evidence of pneumothorax. Portion of an old catheter in the upper SVC is again noted There is hyperinflation of the lungs consistent with chronic obstructive lung disease (COPD). Again noted is elevated right hemidiaphragm. Lungs are essentially clear. There is no demonstrated pleural abnormality. There is mild cardiac enlargement. Normal mediastinum and lazaro. Normal visualized pulmonary arteries. Normal visualized aortic arch and descending thoracic aorta. Normal visualized thoracic spine. Normal visualized ribs, clavicles, and shoulders. There is no demonstrated abnormality of the visualized soft tissue structures of the upper abdomen. RAD/CXR for Line Placement IMPRESSION: Placement of right chest wall Mediport with tip in the upper SVC. Old left-sided vascular port catheter is noted as well. Lungs are clear. Electronically Signed: Minh Arrington DO at 12:30 EST Tel , Service support ,
[2017-07-29 12:21] LABS: Bedside Glucose 98 mg/dL (70-110)
[2017-07-29] MEDS: Losartan Potassium 50 MG Tablet PO (15:29)
[2017-07-29] MEDS: HYDROCHLOROTHIAZIDE 12.5 MG CAPSULE PO (15:29)
[2017-07-29] MEDS: Lactated Ringers 1,000 ML 75 ML IV (15:29)
[2017-07-29] MEDS: Cefazolin 1 GM/50 ML BAG IV (17:35)
[2017-07-30] MEDS: Cefazolin 1 GM/50 ML BAG IV (03:00)
[2017-07-30 03:01] VITALS: BP 154/81; PULSE 95; RESP 18; TEMP 36.8; O2SAT 98
[2017-07-30] MEDS: 0.9% NaCl Peripheral Flush Adult/Peds IV (05:35)
[2017-07-30 08:06] VITALS: BP 149/82; PULSE 93; RESP 16; TEMP 36.9; O2SAT 94
[2017-07-30] MEDS: HYDROCHLOROTHIAZIDE 12.5 MG CAPSULE PO (08:07)
--- NOTE | 2017-07-30 10:31 | PCM.DC.BS ---
Discharge Diet: No Restrictions Discharge Activity: May Not Drive - for 2-3 days or while taking narcotic pain meds. May shower in (days): 1 Lifting Restrictions: 10 pounds for 1 week. Call your doctor if your incision/area has: Continuous Slow Oozing, Sudden Increased Bleeding Call your doctor if you observe: Fever of 101 or Higher Suture Line Care: Avoid Pulling/Pushing, Avoid Pinching/Bending Remove Dressing in (days):: 1 - Remove bulky dressing tomorrow. May leave any opsite dressing for 3-4 days. Keep dressing in place until your follow-up appointment. Additional Dressing/Incision Instructions:: Remove bulky dressing tomorrow. May leave any opsite dressing for 3-4 days. Keep dressing in place until your follow-up appointment. Allergies/Adverse Reactions: Allergies atorvastatin [From Lipitor] Allergy (Mild, Verified 07/26/17 12:10) Unknown ergocalciferol (vitamin D2) [From Vitamin D2] Allergy (Mild, Verified 07/26/17 12:10) Unknown Medications to take at Discharge hydrochlorothiazide 12.5 mg tablet 12.5 mg PO QDAY 07/01/17 losartan 50 mg tablet 50 mg PO LUNCH 07/01/17 metformin 500 mg tablet 500 mg PO DAILY 07/01/17 potassium chloride ER 20 mEq tablet,extended release 20 meq PO LUNCH 07/01/17 Loratadine [Claritin] 10 mg PO PRN PRN 07/14/17 Primary Care Physician: Roscoe Chaves III, MD [Primary Care Provider] -
--- NOTE | 2017-07-30 10:53 | NURSING ---
In to review dressing and drain care with patient and . dressing changed as ordered. see intervention. pt tolerated well. lumpectomy teaching packet given and form for patient to record SISSY drainage given to patient. all questions answered. Dr Burt in to see patient.
== END 2017-07-30 11:30 | disposition home or self-care (01) ==
LOC: SDC 13:38 → MS3 13:38
PROVIDERS: Admitting Provider Surgery; Family Provider Family Medicine; PCP Family Medicine; Visit Provider Surgery
PROC: (CPT 19301; principal; 2017-07-29 09:15)
PROC: (CPT 19301; 2017-07-29 09:15)
DX: C50.412 Malignant neoplasm of upper-outer quadrant of left female breast (principal); Z17.0 Estrogen receptor positive status [ER+]; Z45.2 Encounter for adjustment and management of vascular access device; Z79.84 Long term (current) use of oral hypoglycemic drugs; Z79.899 Other long term (current) drug therapy; D55.9 Anemia due to enzyme disorder, unspecified; K58.9 Irritable bowel syndrome, unspecified; E11.9 Type 2 diabetes mellitus without complications
CPT/HCPCS: 19301; 36561; 71045; 77001; 82962; 88305; 88341; 88342; 96361; 96365; 96366; 99218; J3010; J7120; A4216; C1788; G0378; G0379; J2405

== ENCOUNTER 2019-10-13 18:45 | Inpatient (IN) | payer MEDICARE, OTHER, SELFPAY ==
[2019-10-13] VITALS (13 sets, daily range): BP systolic 161–193; BP diastolic 102–117; PULSE 108–142; RESP 18–24; TEMP 36.6–36.9; O2SAT 91–98; BMI 35.3; BMI 34.3; BMI 33.5; BMI 33.6
--- NOTE | 2019-10-13 07:20 | RAD_ITS ---
STUDY: X-RAY CHEST REASON FOR EXAM: Female, 74 years old. SOB AND CP X1 WEEK TECHNIQUE: Single AP portable view of the chest. COMPARISON: 07/29/2017. FINDINGS: The lungs are clear and expanded. Elevated right hemidiaphragm. There is no demonstrated pleural abnormality. There is mild cardiac enlargement. Normal mediastinum and lazaro. Normal visualized pulmonary arteries. Normal visualized aortic arch and descending thoracic aorta. There are diffuse degenerative changes of the visualized thoracic spine. Normal visualized ribs, clavicles, and shoulders. There is no demonstrated abnormality of the visualized soft tissue structures of the upper abdomen. RAD/Chest 1 View (Portable) IMPRESSION: No definite acute or significant abnormality seen. Electronically Signed: Leonard Carrion MD at 19:50 EDT , Service support ,
--- NOTE | 2019-10-13 19:04 | EKG12_ITS ---
Test Reason : SOB Blood Pressure : / mmHG Vent. Rate : 140 BPM Atrial Rate : 140 BPM P-R Int : 134 ms QRS Dur : 076 ms QT Int : 286 ms P-R-T Axes : 045 031 052 degrees QTc Int : 436 ms Sinus tachycardia with Premature atrial complexes Otherwise normal ECG Confirmed by GRAHAM ALVARADO, NANDA ([id number]), state editor AMALIA NAIK ([id number]) on 10/17/2019 2:28:40 PM Referred By: Husam Saab Confirmed By:NANDA STEVENSON MD
--- NOTE | 2019-10-13 19:05 | ED.DCSUM_ITS ---
History of Present Illness Chief Complaint: Shortness of Breath Informant: Patient Onset: Weeks Context: Sudden Onset Timing: Intermittent Quality: Pain Location: Central chest Current Severity: Moderate Maximum Severity: Severe Worsened by: Nothing Relieved by: Nothing Associated Symptoms: Shortness of breath Narrative: Patient is an elderly woman with history of hypertension, dyslipidemia who presents with chest pain that started greater than 1 week ago that was initially intermittent. The pain is more persistent and worse. She describes as a pain tight sensation. There is no radiation. There is associated shortness of breath with no nausea, vomiting or diaphoresis. The pain is not related to activity or change in position. The pain is not related to food intake. Patient denies history of hiatal hernia, reflux, black stool or maroon stool. She denies history of PE or DVT. She does report intermittent edema of the lower extremities and has 2 pillow orthopnea. She denies history of congestive heart failure. She denies orthopnea. She denies fever, chills night sweats. She denies rhinorrhea, postnasal drainage or sore throat. She denies ear pain, ringing or ears or decreased hearing. She denies difficulty with speech or swallowing. Prior similar symptoms: No Recent Illness/Hospitalization: No - Past Medical History (1) Breast cancer, female Status: Acute (2) Diabetes Status: Acute (3) Hemorrhoids Status: Acute (4) History of partial mastectomy of right breast Status: Acute Comment: with axillary lymphadenectomy 12/06/06 (5) IBS (irritable bowel syndrome) Status: Acute (6) S/P colonoscopy Status: Acute Comment: 12/16/01, 11/18/06 (7) Hypertension Status: Chronic Past Medical History - Allergies and Home Meds Allergies/Adverse Reactions: Allergies atorvastatin [From Lipitor] Allergy (Mild, Verified 10/19/17 10:41) Unknown ergocalciferol (vitamin D2) [From Vitamin D2] Allergy (Mild, Verified 10/19/17 10:41) Unknown Primary Care Physician: Roscoe Chaves III, MD [Primary Care Provider] - Prior records reviewed: Yes Surgical History: no surgical history Lives: Spouse/ Significant Other Smoking Status: Never smoker Alcohol: None Drugs: None Review of Systems General: Denies: Chills, Fever, Malaise, Sweats Eyes: Denies: Visual changes - bilaterally, Blurred Vision - bilaterally ENT: Denies: Bilateral ear pain, Rhinorrhea, Sore throat Cardiovascular: Reports: Chest pain. Denies: Palpitations, Heart racing Respiratory: Reports: Dyspnea, Dyspnea on exertion, Orthopnea. Denies: Cough, Sputum, Paroxysmal nocturnal dyspnea Gastrointestinal: Denies: Abdominal pain, Nausea, Vomiting, Diarrhea, Melena, Hematochezia Genitourinary: Denies: Dysuria, Hematuria, Frequency Musculoskeletal: Denies: Myalgias, Arthralgias, Neck pain, Back pain, Swelling, Extremity Pain, -, - Skin: Denies: Rash, Wounds Neurological: Denies: Headache, Weakness, Numbness Endocrine: Denies: Polyuria, Polydipsia Hematologic: Denies: Easy bruising, Easy bleeding Physical Exam Vital Signs/Narrative: Vital Signs Temp Pulse Resp BP Pulse Ox 10/13/19 18:46 98.0 F 140 H 18 175/113 H 96 Inital Vital Signs reviewed: Yes General: Well nourished, Well developed, Obese Head: Normocephalic, Atraumatic Eyes: Perrl, EOMI. Negative for: Pale conjunctiva, Scleral icterus ENT: Moist mucous membranes, No rhinorrhea, TM's clear Neck: Supple, Nontender, No lymphadenopathy, No JVD Cardiovascular: Regular rhythm, No murmurs, Normal S1, Normal S2, Tachycardia Respiratory: CTA bilaterally, Chest nontender, - - Minimal use of accessory muscles. Patient has scars secondary to lumpectomy on the right.. Negative for: No distress Abdomen: Soft, Nontender, Nondistended, Normal bowel sounds Rectal: Deferred Back: Nontender, Normal Inspection Extremities: Nontender, Edema, - - There is no asymmetry, swelling, discoloration, leg vein distention, palpable cords or tenderness along the dist ribution of the deep venous system. Skin: Normal color, No rash, No Trauma. Negative for: Cyanosis, Diaphoresis, Jaundice Neurological: Alert, Oriented x3, Cranial nerves II-XII grossly intact, Normal Strength, Normal Sensation Psychological: Depressed Diagnostic/Tx/Re-eval Chest X-Ray - ED: Read by ED Physician, Normal, Heart, Lungs, Mediastinum, Bony Structures, No Acute Disease, Chronic Changes Impressions Chest X-Ray 10/13/19 07:20 IMPRESSION: No definite acute or significant abnormality seen. Electronically Signed: Leonard Carrion MD at 19:50 EDT , Service support , Chest CTA 10/13/19 20:01 IMPRESSION: Widespread bilateral pulmonary emboli including saddle embolus extending into both the right and left main pulmonary arteries. There are findings consistent with COPD. There is no evidence of acute chest disease. Electronically Signed: Leonard Carrion MD at 20:58 EDT , Service support , 10/13/19 07:20 Chest 1 View (Portable) [RAD] Stat 10/13/19 20:01 CTA Chest W/WO Contrast [CT] Stat Laboratory Results 10/13/19 10/13/19 10/13/19 18:00 18:00 18:00 WBC 7.5 RBC 4.78 Hgb 14.5 Hct 42.9 MCV 89.7 MCH 30.3 MCHC 33.8 RDW Std Deviation 42.3 RDW Coeff of Vignesh 12.9 Plt Count 199 MPV 11.0 Immature Gran % (Auto) 0.300 Neut % (Auto) 57.5 Lymph % (Auto) 33.4 [place] % (Auto) 6.8 Eos % (Auto) 1.7 Baso % (Auto) 0.3 Absolute Neuts (auto) 4.3 Absolute Lymphs (auto) 2.52 Nucleated RBC % 0 D-Dimer Quant (PE/DVT) 13.76 H* Sodium 138 Potassium 3.5 Chloride 104 Carbon Dioxide 25.0 Anion Gap 9 BUN 20 H Creatinine 0.98 Estim Creat Clear Calc 42.17 Est GFR (MDRD) Af Amer 71 Est GFR (MDRD) Non-Af 59 L BUN/Creatinine Ratio 20.4 H Glucose 136 H Calcium 9.1 Troponin I 0.024 Patient has extensive bilateral pulmonary embolus with significant saddle pulmonary embolus involving the right and left pulmonary arteries. Plan is anticoagulation admit to ICU - Rhythm Strip Rhythm Strip: Sinus Tach Rate: 128 - EKG Initial EKG Interpretation: Sinus Tachycardia - This tachycardia with a ventricular rate of 140. MT interval 134 ms. QRS duration 76 ms. QT duration 286 ms. [place] is normal. - Medical Decision Making Patient presents with chest pain and shortness of breath. She is tachypneic and tachycardic. With prior history of breast cancer need to consider possibility of pulmonary embolus, pneumonia, cardiac ischemia. Appropriate labs and diagnostic tests were ordered. If d-dimer is elevated and there is no asthma in the chest x-ray to explain her symptoms a CTA of the chest will be ordered. With a unremarkable chest x-ray and a d-dimer 13.76 CTA of the chest was ordered to evaluate for pulmonary embolus. - Critical Care Time Critical care time (excluding procedures): 30-74 minutes - Care time 34 minutes, Discussing w/Patient &/or Family/Manager Van, Discussing w/Consultants, Arranging Admission or Transfer - Included time to obtain history, documentation, review of old records. Discussion with consultants and patient. ED Disposition - Plan for ED Patient: Disposition: Acute Care Hospital [facility] Diagnosis: Acute saddle pulmonary embolus Referrals: Roscoe Chaves III, MD [Primary Care Provider] -
[2019-10-13 19:29] LABS: Absolute Lymphocyte Count 2.52 X10^3/uL (0.83-4.51); Absolute Neutrophil Count 4.3 X10^3/uL (2.0-7.7); Basophil# 0.02 X10^3/uL; Basophil% 0.3 % (0-1); Eosinophil# 0.13 X10^3/uL; Eosinophils% 1.7 % (0-5); Hematocrit 42.9 % (37-47); Hemoglobin 14.5 g/dL (12.0-15.0); Lymphocyte # 2.52 X10^3/ul (4.0); Lymphocyte % 33.4 % (19-41); Mean Corp Hgb Conc 33.8 g/dL (32-36); Mean Corpuscular Hgb 30.3 pg (27.0-32.0); Mean Corpuscular Volume 89.7 fL (81-99); Monocyte# 0.51 X10^3/uL; Monocyte% 6.8 % (0-10); NRBC Flagged by Analyzer 0 % (0-5); Neutrophil # 4.34 X10^3/uL (2.7-7.7); Neutrophil % 57.5 % (47-70); Platelet Count 199 K/mm3 (150-450); RBC Distribution Width CV 12.9 % (11.6-14.6); RBC Distribution Width SD 42.3 fl (35.1-43.9); Red Blood Count 4.78 M/mm3 (4.2-5.4); White Blood Count 7.5 K/mm3 (4.4-11.0)
[2019-10-13 19:41] LABS: Anion Gap 9 (5-15); BUN 20 mg/dL (7-18); BUN/Creat Ratio 20.4 RATIO (10-20); Calcium,Total 9.1 mg/dL (8.5-10.1); Chloride 104 mmol/L (98-107); Creatinine, Serum 0.98 mg/dL (0.55-1.02); EST Glomerular Filtration Rate 59 mL/min (>60); Est Glom Filt Rate - Afr Amer 71 mL/min (>60); Estimated Creatinine Clearance 42.17 ml/min; Glucose 136 mg/dL (74-106); Potassium 3.5 mmol/L (3.5-5.1); Sodium Level 138 mmol/L (136-145)
[2019-10-13 19:49] LABS: D-Dimer Quantitative (DVT/PE) 13.76 FEU/ug/m (0.27-0.49)
--- NOTE | 2019-10-13 20:01 | CT_ITS ---
We are attempting to reach an attending provider to discuss findings. An addendum with communication details will be sent when the communication is complete. STUDY: CTA CHEST REASON FOR EXAM: Female, 74 years old. SOB AND CHEST PAIN X 1 WEEK,ELEVATED DDIMER RADIATION DOSAGE (If Supplied By Facility): CTDIvol = ( 12.17 ) mGy, DLP = ( 448.28 ) mGycm TECHNIQUE: The examination was performed with the intravenous administration of IV 100mL Isovue-370. Post-processing of the angiographic images was performed, with multiplanar reformation and 3D reconstruction. Individualized dose optimization techniques were used for this CT. COMPARISON: None. FINDINGS: Relatively extensive bilateral pulmonary emboli including saddle embolus. Pulmonary emboli are seen in both distal right and left main pulmonary arteries, extending into both descending pulmonary arteries and segmental vessels to the basal segments, and pulmonary emboli are seen extending into the anterior segment of both upper lobes. No gross right ventricular strain. Normal thoracic aorta and visualized great vessels. There is no demonstrated aortic dissection. Normal heart and pericardium. Normal mediastinum. Normal hilar regions. Normal visualized trachea and bronchi. The lungs are hyper expanded, with flattening of the hemidiaphragms. Normal pulmonary parenchyma. Normal pleura. There are no pleural effusions. Normal chest wall structures. There are degenerative changes of thoracic spine. Normal visualized upper abdomen. CT/CTA Chest W/WO Contrast IMPRESSION: Widespread bilateral pulmonary emboli including saddle embolus extending into both the right and left main pulmonary arteries. There are findings consistent with COPD. There is no evidence of acute chest disease. Electronically Signed: Leonard Carrion MD at 20:58 EDT , Service support ,
[2019-10-13 21:28] LABS: Partial Thromboplast Time 27.3 Seconds (24.1-36.2)
--- NOTE | 2019-10-13 21:37 | PCM.HP.STD ---
Problem List (1) Acute saddle pulmonary embolus Status: Acute (2) IBS (irritable bowel syndrome) Status: Chronic (3) Vitamin D deficiency Status: Chronic (4) Hemorrhoids Status: Chronic (5) History of partial mastectomy of right breast Status: Chronic Comment: with axillary lymphadenectomy 12/06/06 (6) S/P colonoscopy Status: Chronic Comment: 12/16/01, 11/18/06 (7) S/P hysterectomy Status: Chronic (8) S/P lumpectomy of breast Status: Chronic Comment: 2006 (9) Hypertension Status: Chronic (10) Diabetes Status: Chronic (11) Hx of breast cancer Status: Chronic History of Present Illness Date of Admission: 10/13/19 Chief Complaint: chest pain The patient is a 74 year old F with a significant history of bilateral breast cancer status post lumpectomy, chemotherapy and radiation; and hypertension who presents emergency department with several months of left-sided chest pain which has worsened in the last 1 week. She described the pain as a muscle spasm. The pain is nonradiating. She denies any aggravating or ameliorating factors to the pain. The pain is episodic. At the highest intensity of the pain can get to 8-10 on a scale of 1-10. Associated with her symptoms is shortness of breath with exertion. Also patient reports a problem with his legs. She describes this problem with his legs as a tightness and numbness of her toes. At emergency department her d-dimer was elevated. A follow-up CTA of the chest showed widespread bilateral pulmonary emboli including saddle embolus. She denies any recent surgery. She reported her last surgery was about 2 years ago. She denies any recent immobility or travel. She reports that her last mammogram was April in 2019. She reported that she had a colonoscopy about 11 years ago. In 2019 she had a colon screen where she sent her fecal specimen. Past Medical History Past Medical History (Chronic Problems): Chronic Problems (Last Reviewed 10/13/19 @ 22:[address] Husam Saab MD) IBS (irritable bowel syndrome) (Chronic) Vitamin D deficiency (Chronic) Hemorrhoids (Chronic) History of partial mastectomy of right breast (Chronic) with axillary lymphadenectomy 12/06/06 S/P colonoscopy (Chronic) 12/16/01, 11/18/06 S/P hysterectomy (Chronic) S/P lumpectomy of breast (Chronic) 2006 Hypertension (Chronic) Diabetes (Chronic) Hx of breast cancer (Chronic) Medical History: Medical History (Last Reviewed 10/13/19 @ 22:[address] Husam Saab MD) IBS (irritable bowel syndrome) (Chronic) K58.9 Vitamin D deficiency (Chronic) E55.9 Hemorrhoids (Chronic) K64.9 Hypertension (Chronic) I10 Diabetes (Chronic) E11.9 Hx of breast cancer (Chronic) Z85.3 Allergies atorvastatin [From Lipitor] Allergy (Mild, Verified 10/19/17 10:41) Unknown ergocalciferol (vitamin D2) [From Vitamin D2] Allergy (Mild, Verified 10/19/17 10:41) Unknown Home Medications: Ambulatory Orders Medication Instructions Recorded hydrochlorothiazide 12.5 mg tablet 12.5 mg PO QDAY 07/01/17 losartan 50 mg tablet 50 mg PO LUNCH 07/01/17 potassium chloride 20 mEq 20 meq PO LUNCH 07/01/17 tablet,extended release Anastrozole [Arimidex] 1 tab PO DAILY 10/13/19 Surgical History: Surgical History (Last Reviewed 10/13/19 @ 22:[address] Husam Saab MD) Port-a-cath in place (Inactive) Z95.828 01/21/07 [place] node (Inactive) 12/06/06 History of partial mastectomy of right breast (Acute) Z98.890, Z90.11 with axillary lymphadenectomy 12/06/06 S/P colonoscopy (Chronic) Z98.890 12/16/01, 11/18/06 S/P hysterectomy (Chronic) Z90.710 S/P lumpectomy of breast (Chronic) Z98.890 2006 History of removal of Port-a-Cath Z98.890 S/P lumpectomy, left breast Z98.890 Lives: Spouse/ Significant Other Smoking Status: Never smoker Alcohol: None Drugs: None - *Family History Maternal Family History: Family History (Last Reviewed 10/13/19 @ 22:[address] Husam Saab MD) Mother Breast cancer Father Heart disease Hypertension Review of Systems Constitutional: Denies: Chills, Fever, Weight Change HEENT: Denies: Head Aches, Sinus Congestion, Sinus Drainage Cardiovascular: Reports: Chest Pain. Denies: Palpitations Respiratory: Reports: Shortness of breath upon exertion. Denies: Cough, Shortness of breath at rest, Sputum production Gastrointestinal: Denies: Abdominal Pain, Nausea, Vomiting Genitourinary: Denies: Dysuria Musculoskeletal: Reports: Leg Pain. Denies: Arm Pain, Neck Pain Skin: Denies: Rash, Wounds Neurological: Reports: Numbness - Toes. Denies: Focal weakness, Tingling Psychiatric: Denies: Anxiety, Depression, Homicidal Ideations, Suicidal Ideations Hematologic/ Lymphatic: Denies: Easy Bruising, Easy Bleeding VTE Information - Inpt Only VTE Present on Admission: Yes VTE Mechan Device Prophylaxis: None VTE Pharm Prophylaxis ordered?: No Reason prophylaxis not ordered:: Treatment Not Indicated - Started on anticoagulation for acute PE. Patient Problems: Active and Suspected Problems (Last Reviewed 10/13/19 @ 22:[address] Husam Saab MD) Acute saddle pulmonary embolus (Acute) - Physical Exam Vitals/I&O's: Vital Signs Temp Pulse Resp BP Pulse Ox 98.0 F 140 H 18 175/113 H 96 10/13/19 18:46 10/13/19 18:46 10/13/19 18:46 10/13/19 18:46 10/13/19 19:10 Oxygen Flow Rate (L/min) 2 Oxygen Delivery Method Nasal Cannula Weight: 90.8 kg Body Mass Index (BMI) 34.3 Finger Stick Blood Glucose 98 General: Alert, Oriented x3, Cooperative HEENT: Atraumatic, PERRLA, EOMI, Normocephalic Neck: Supple, No JVD, Negative Carotid Bruits Lungs: Clear to auscultation, Normal air movement Cardiovascular: Normal S1, Normal S2, No murmurs, Tachycardic Abdomen: Bowel Sounds Present, Soft, Non Tender Extremities: No edema, Capillary Refill Less than 3 Seconds Skin: No rashes, No breakdown Musculoskeletal: No Tenderness to Palpation of Joints or Extremities Neurological: Cranial nerves II-XII grossly intact Psych/Mental Status: Normal Affect, Appropriate Laboratory Results 10/13/19 18:00: WBC 7.5, RBC 4.78, Hgb 14.5, Hct 42.9, MCV 89.7, MCH 30.3, MCHC 33.8, RDW Std Deviation 42.3, RDW Coeff of Vignesh 12.9, Plt Count 199, MPV 11.0, Immature Gran % (Auto) 0.300, Neut % (Auto) 57.5, Lymph % (Auto) 33.4, [place] % (Auto) 6.8, Eos % (Auto) 1.7, Baso % (Auto) 0.3, Absolute Neuts (auto) 4.3, Absolute Lymphs (auto) 2.52, Nucleated RBC % 0 10/13/19 18:00: D-Dimer Quant (PE/DVT) 13.76 H* 10/13/19 18:00: Sodium 138, Potassium 3.5, Chloride 104, Carbon Dioxide 25.0, Anion Gap 9, BUN 20 H, Creatinine 0.98, Estim Creat Clear Calc 42.17, Est GFR (MDRD) Af Amer 71, Est GFR (MDRD) Non-Af 59 L, BUN/Creatinine Ratio 20.4 H, Glucose 136 H, Calcium 9.1, Troponin I 0.024 10/13/19 18:00: APTT 27.3 Current Medications Heparin Sodium (Porcine) (Heparin Na) 0 unit IV UD PRN; Protocol Heparin Sodium/Dextrose () 25,000 units in 250 mls @ 12 mls/hr IV .[id number]; Protocol Assessment/Plan All Active Problems (Last Reviewed 10/13/19 @ 22:[address] Husam Saab MD) Acute saddle pulmonary embolus (Acute) Breast cancer, female (Resolved) The patient is a 74 year old F with a significant history of bilateral breast cancer status post lumpectomy, chemotherapy and radiation; and hypertension who presents emergency department with chest pain, shortness of breath, bilateral leg pain and found to have elevated d-dimer and chest CTA finding of widespread bilateral pulmonary emboli including saddle embolus. Acute saddle pulmonary emboli Patient was started on heparin drip at emergency department. We will continue heparin drip. Troponin was negative. Will get BNP and echocardiogram. Patient will be admitted to intensive care unit. Sr. Merchandise Planner consult. Since she is complaining of bilateral leg pain we will get Doppler extremity of the legs. Hypertension On presentation blood pressure was not within goal Home blood pressure medication continue. Trend blood pressure and adjust blood pressure medications as necessary. PRN Labetalol ordered History of breast cancer Anastrozole continued. DVT prophylaxis Not indicated since patient already has acute PE and has been started on therapeutic anticoagulation. Inpatient E&M: [id number] Init Hosp L3
[2019-10-13] MEDS: HEPARIN/D5w 25,000 UNITS 25,000 UNITS/250 ML IV.SOLN. 12 UNITS IV (21:46)
[2019-10-13] MEDS: Heparin Injection (Vial) 5,000 UNIT/ML VIAL 6000 UNIT IV (21:46)
--- NOTE | 2019-10-13 22:26 | ECHOCS_ITS ---
Reason For Study: emboli Procedure This was a 2D Doppler, Color Flow transthoracic echocardiogram. The study was technically difficult. Due to body habiuts. Contrast injection was performed. Exam performed portable in ICU/CCU. Left Ventricle Normal LV size. Left ventricular systolic function is normal. The estimated ejection fraction is 65 %. Stage 1 diastolic dysfunction. No regional wall motion abnormalities noted. Right Ventricle Normal RV size. Normal systolic function. Atria Normal left atrium. Normal right atrium. Mitral Valve Normal mitral valve. Tricuspid Valve Normal tricuspid valve. Mild (1+) tricuspid valve insufficiency. Pulmonary artery systolic pressure is 33 mmHg. Aortic Valve The aortic valve is not well visualized. Pulmonic Valve The pulmonic valve is not well visualized. Great Vessels Normal aortic root. Pericardium/Pleural No pericardial effusion. Medication Diluted definity 2.0ml given slow IV push to enhance endocardial definition. MMode/2D Measurements & Calculations LVIDd: 3.6 cm IVSd: 0.88 cm Ao root diam: 3.3 cm LVIDs: 2.6 cm LVPWd: 0.99 cm RVDd: 3.3 cm FS: 29.8 % LAV(MOD-bp): 48.3 ml LA A4 area: 17.5 cm2 LA dimension(2D): 2.7 cm LAV(MOD-bp) Indexed: 24.7 ml/m2 LAV(MOD-sp2): 45.8 ml LAV(MOD-sp4): 44.9 ml RA A4 area: 17.1 cm2 Time Measurements MV dec time: 0.15 sec Doppler Measurements & Calculations MV E max lazarus: 61.4 cm/sec Lat Peak E' Lazarus: 8.6 cm/sec Med Peak E' Lazarus: 9.3 cm/sec MV A max lazarus: 98.8 cm/sec E/E' lat: 7.1 E/E' med: 6.6 MV E/A: 0.62 Ao V2 max: 156.0 cm/sec LV V1 max: 110.3 cm/sec PA V2 max: 71.6 cm/sec Ao max P.8 mmHg LV V1 max P.9 mmHg TR max lazarus: 267.3 cm/sec TR max P.7 mmHg Interpretation Summary Normal LV size. Left ventricular systolic function is normal. The estimated ejection fraction is 65 %. Stage 1 diastolic dysfunction. Contrast injection was performed. Ordering Physician: Husam Saab Referring Physician: Roscoe Chaves Performed By: Shagufta Glynn RDCS, RVT
[2019-10-13 23:02] LABS: BNP,B-Type NATRIURETIC PEPTIDE 25.7 pg/mL (0-100)
[2019-10-13] MEDS: 0.9% Saline Lock 10 ML Syringe IV (23:52)
[2019-10-14] VITALS (21 sets, daily range): BP systolic 99–160; BP diastolic 72–104; PULSE 86–111; RESP 16–22; TEMP 36.4–36.9; O2SAT 92–98
--- NOTE | 2019-10-14 01:26 | NURSING ---
pt complaining of midsternal chest pain, radiating down right arm with tingling and arm feeling hot. No swelling or reddness to right arm, EKG obtained, will notify .
--- NOTE | 2019-10-14 01:36 | EKG12_ITS ---
Test Reason : CP, N/T Blood Pressure : / mmHG Vent. Rate : 098 BPM Atrial Rate : 098 BPM P-R Int : 152 ms QRS Dur : 078 ms QT Int : 380 ms P-R-T Axes : 063 042 042 degrees QTc Int : 485 ms Normal sinus rhythm Normal ECG Confirmed by AMANDA ALVARADO, JUNI ([id number]), city editor AMALIA NAIK ([id number] on 10/19/2019 2:54:48 PM Referred By: Husam Saab Confirmed By:JUNI PATEL MD
[2019-10-14] MEDS: Morphine 2 MG/ML Syringe IV (01:52)
[2019-10-14] MEDS: 0.9% Saline Lock 10 ML Syringe IV (01:53)
[2019-10-14 03:59] LABS: Absolute Lymphocyte Count 1.82 X10^3/uL (0.83-4.51); Basophil# 0.02 X10^3/uL; Basophil% 0.3 % (0-1); Eosinophil# 0.04 X10^3/uL; Eosinophils% 0.6 % (0-5); Hematocrit 37.7 % (37-47); Hemoglobin 12.8 g/dL (12.0-15.0); Lymphocyte # 1.82 X10^3/ul (4.0); Lymphocyte % 25.1 % (19-41); Mean Corpuscular Hgb 30.5 pg (27.0-32.0); Mean Corpuscular Volume 89.8 fL (81-99); Mean Platelet Vol. 10.6 fl (6.2-12.0); Monocyte# 0.39 X10^3/uL; Monocyte% 5.4 % (0-10); NRBC Flagged by Analyzer 0 % (0-5); Neutrophil # 4.96 X10^3/uL (2.7-7.7); Neutrophil % 68.5 % (47-70); Platelet Count 180 K/mm3 (150-450); White Blood Count 7.2 K/mm3 (4.4-11.0)
[2019-10-14 04:13] LABS: Anion Gap 8 (5-15); BUN 16 mg/dL (7-18); BUN/Creat Ratio 21.6 RATIO (10-20); Calcium,Total 8.5 mg/dL (8.5-10.1); Chloride 103 mmol/L (98-107); Creatinine, Serum 0.74 mg/dL (0.55-1.02); EST Glomerular Filtration Rate 81 mL/min (>60); Est Glom Filt Rate - Afr Amer 98 mL/min (>60); Estimated Creatinine Clearance 41.33 ml/min; Glucose 128 mg/dL (74-106); Potassium 3.1 mmol/L (3.5-5.1); Sodium Level 138 mmol/L (136-145)
[2019-10-14 04:18] LABS: Partial Thromboplast Time 148.7 Seconds (24.1-36.2)
--- NOTE | 2019-10-14 06:10 | PCM.CON.CC ---
Reason for Consult Date of Consultation: 10/14/19 Reason for Consultation: Bilateral pulmonary embolism History of Present Illness: The patient is a 74-year-old female, with a history as outlined below, who presented to the emergency department on October 12 with complaints of chest pain and shortness of breath. The patient denies a history of prior venous thromboembolic disease. She denies any recent travel or prolonged immobility. She does have a known history of breast cancer, which has been treated in the past. She reports no known family history of venous thromboembolic disease. On presentation to the emergency department, the patient was noted to be afebrile but was tachycardic and hypertensive. Initial laboratory evaluation revealed a normal CBC with differential. D-dimer was significantly elevated to 13.7. Chemistry profile was largely unremarkable. Troponin was negative. BNP was only 25. CTA chest was obtained and revealed extensive bilateral pulmonary emboli including saddle embolus. There was no radiographic evidence of right ventricular strain. The patient was placed on a continuous heparin infusion and admitted to the medical intensive care unit for further management. Past Medical History Past Medical History (Chronic Problems): Chronic Problems (Last Reviewed 10/13/19 @ 22:[address] Husam Saab MD) IBS (irritable bowel syndrome) (Chronic) Vitamin D deficiency (Chronic) Hemorrhoids (Chronic) History of partial mastectomy of right breast (Chronic) with axillary lymphadenectomy 12/06/06 S/P colonoscopy (Chronic) 12/16/01, 11/18/06 S/P hysterectomy (Chronic) S/P lumpectomy of breast (Chronic) 2006 Hypertension (Chronic) Diabetes (Chronic) Hx of breast cancer (Chronic) Medical History: Medical History (Last Reviewed 10/13/19 @ 22:[address] Husam Saab MD) IBS (irritable bowel syndrome) (Chronic) K58.9 Vitamin D deficiency (Chronic) E55.9 Hemorrhoids (Chronic) K64.9 Hypertension (Chronic) I10 Diabetes (Chronic) E11.9 Hx of breast cancer (Chronic) Z85.3 Allergies atorvastatin [From Lipitor] Allergy (Mild, Verified 10/19/17 10:41) Unknown ergocalciferol (vitamin D2) [From Vitamin D2] Allergy (Mild, Verified 10/19/17 10:41) Unknown Home Medications: Ambulatory Orders Medication Instructions Recorded hydrochlorothiazide 12.5 mg tablet 12.5 mg PO QDAY 07/01/17 losartan 50 mg tablet 50 mg PO LUNCH 07/01/17 potassium chloride 20 mEq 20 meq PO LUNCH 07/01/17 tablet,extended release Anastrozole [Arimidex] 1 tab PO DAILY 10/13/19 Apixaban [Eliquis] 5 mg PO UD #60 tab 10/14/19 Surgical History: Surgical History (Last Reviewed 10/13/19 @ 22:[address] Husam Saab MD) Port-a-cath in place (Inactive) Z95.828 01/21/07 [place] node (Inactive) 12/06/06 History of partial mastectomy of right breast (Chronic) Z98.890, Z90.11 with axillary lymphadenectomy 12/06/06 S/P colonoscopy (Chronic) Z98.890 12/16/01, 11/18/06 S/P hysterectomy (Chronic) Z90.710 S/P lumpectomy of breast (Chronic) Z98.890 2006 History of removal of Port-a-Cath Z98.890 S/P lumpectomy, left breast Z98.890 Surgical History: no surgical history Lives: Spouse/ Significant Other Smoking Status: Never smoker Alcohol: None Drugs: None - *Family History Maternal Family History: Family History (Last Reviewed 10/13/19 @ 22:[address] Husam Saab MD) Mother Breast cancer Father Heart disease Hypertension Review of Systems Constitutional: Denies: Chills, Fever Eyes: Denies: Blurred vision, Double vision HEENT: Denies: Head Aches, Sinus Congestion, Sinus Drainage Cardiovascular: Reports: Chest Pain Respiratory: Reports: Shortness of Breath. Denies: Cough Gastrointestinal: Denies: Abdominal Pain, Nausea, Vomiting Genitourinary: Denies: Dysuria Musculoskeletal: Denies: Joint Pain, Joint Tenderness Skin: Denies: Rash, Wounds Neurological: Denies: Numbness, Tingling, Focal weakness Psychiatric: Denies: Anxiety, Depression, Homicidal Ideations, Suicidal Ideations Hematologic/ Lymphatic: Denies: Easy Bruising, Easy Bleeding Patient Problems: Active and Suspected Problems (Last Reviewed 10/13/19 @ 22:[address] Husam Saab MD) Acute saddle pulmonary embolus (Acute) Objective: The patient's most recent lab work, culture data and imaging studies have all been personally reviewed. - Physical Exam Vitals/I&O's: Vital Signs Temp Pulse Resp BP Pulse Ox 97.9 F 96 16 140/87 H 98 10/14/19 04:00 10/14/19 06:00 10/14/19 06:00 10/14/19 06:00 10/14/19 06:00 Oxygen Flow Rate (L/min) 2 Oxygen Delivery Method Nasal Cannula Weight: 195 lb 12.328 oz Body Mass Index (BMI) 33.5 Finger Stick Blood Glucose 98 Intake and Output for Last 24 Hours 10/12/19 10/13/19 10/14/19 23:59 23:59 23:59 Intake Total 11.8 / 11.8 69 / 69 Output Total 550 / 550 Balance 11.8 / 11.8 -481 / -481 General: Alert, Oriented x3, Cooperative, No apparent distress HEENT: Atraumatic, PERRLA, Normocephalic Oral: Moist Mucosa, No Gingival or Mucosal Lesions/ Ulcerations Neck: Supple, No Nodes, Trachea Midline Lungs: Normal air movement Cardiovascular: Regular rate, Regular Rhythm, Normal S1, Normal S2 Abdomen: Bowel Sounds Present, Soft, Non Tender Extremities: No clubbing, No cyanosis Skin: No breakdown Musculoskeletal: No Tenderness to Palpation of Joints or Extremities, No Muscle Wasting Lymphatic: No Cervical, Supraclavicular, or Inguinal Adenopathy Neurological: Cranial nerves II-XII grossly intact, Neuro grossly intact Psych/Mental Status: Alert and oriented to time, place, person, mood and affect Labs (Last 48 Hours) 10/13/19 10/13/19 10/13/19 18:00 18:00 18:00 WBC 7.5 RBC 4.78 Hgb 14.5 Hct 42.9 MCV 89.7 MCH 30.3 MCHC 33.8 RDW Std Deviation 42.3 RDW Coeff of Vignesh 12.9 Plt Count 199 MPV 11.0 Immature Gran % (Auto) 0.300 Neut % (Auto) 57.5 Lymph % (Auto) 33.4 [place] % (Auto) 6.8 Eos % (Auto) 1.7 Baso % (Auto) 0.3 Absolute Neuts (auto) 4.3 Absolute Lymphs (auto) 2.52 Nucleated RBC % 0 APTT D-Dimer Quant (PE/DVT) 13.76 H* Sodium 138 Potassium 3.5 Chloride 104 Carbon Dioxide 25.0 Anion Gap 9 BUN 20 H Creatinine 0.98 Estim Creat Clear Calc 42.17 Est GFR (MDRD) Af Amer 71 Est GFR (MDRD) Non-Af 59 L BUN/Creatinine Ratio 20.4 H Glucose 136 H Calcium 9.1 Troponin I 0.024 B-Natriuretic Peptide 10/13/19 10/13/19 10/14/19 18:00 18:00 03:50 WBC 7.2 RBC 4.20 Hgb 12.8 Hct 37.7 MCV 89.8 MCH 30.5 MCHC 34.0 RDW Std Deviation 42.0 RDW Coeff of Vignesh 13.0 Plt Count 180 MPV 10.6 Immature Gran % (Auto) 0.100 Neut % (Auto) 68.5 Lymph % (Auto) 25.1 [place] % (Auto) 5.4 Eos % (Auto) 0.6 Baso % (Auto) 0.3 Absolute Neuts (auto) 5.0 Absolute Lymphs (auto) 1.82 Nucleated RBC % 0 APTT 27.3 D-Dimer Quant (PE/DVT) Sodium Potassium Chloride Carbon Dioxide Anion Gap BUN Creatinine Estim Creat Clear Calc Est GFR (MDRD) Af Amer Est GFR (MDRD) Non-Af BUN/Creatinine Ratio Glucose Calcium Troponin I B-Natriuretic Peptide 25.7 10/14/19 10/14/19 03:50 03:50 WBC RBC Hgb Hct MCV MCH MCHC RDW Std Deviation RDW Coeff of Vignesh Plt Count MPV Immature Gran % (Auto) Neut % (Auto) Lymph % (Auto) [place] % (Auto) Eos % (Auto) Baso % (Auto) Absolute Neuts (auto) Absolute Lymphs (auto) Nucleated RBC % APTT 148.7 H* D-Dimer Quant (PE/DVT) Sodium 138 Potassium 3.1 L Chloride 103 Carbon Dioxide 27.0 Anion Gap 8 BUN 16 Creatinine 0.74 Estim Creat Clear Calc 41.33 Est GFR (MDRD) Af Amer 98 Est GFR (MDRD) Non-Af 81 BUN/Creatinine Ratio 21.6 H Glucose 128 H Calcium 8.5 Troponin I B-Natriuretic Peptide Clinical Impression(s) from Imaging Studies Chest X-Ray 10/13/19 07:20 IMPRESSION: No definite acute or significant abnormality seen. Electronically Signed: Leonard Carrion MD at 19:50 EDT , Service support , Chest CTA 10/13/19 20:01 IMPRESSION: Widespread bilateral pulmonary emboli including saddle embolus extending into both the right and left main pulmonary arteries. There are findings consistent with COPD. There is no evidence of acute chest disease. Electronically Signed: Leonard Carrion MD at 20:58 EDT , Service support , ADDENDUM: 10/13/19 2155 IMPRESSION: Widespread bilateral pulmonary emboli including saddle embolus extending into both the right and left main pulmonary arteries. There are findings consistent with COPD. There is no evidence of acute chest disease. N.B. : Dr. Kavon MD, confirmed on 10/13/2019 21:48:52 (ET) that the referring physician received the results and does not require a verbal communication. Electronically Signed: Leonard Carrion MD at 20:58 EDT , Service support , Current Medications Acetaminophen (Tylenol) 650 mg PO Q6H PRN PRN PRN Reason: Pain Score 1-10/Temp > 100.7 F Anastrozole (Arimidex) mg PO DAILY [facility] Dextrose (D50w Syringe) 0 gm IV X1 PRN; Protocol PRN Reason: Hypoglycemia Glucagon () 1 mg IM .X1 PRN PRN Reason: Hypoglycemia Hydrochlorothiazide () 12.5 mg PO DAILY [facility] Heparin Sodium/Dextrose () 25,000 units in 250 mls @ 12 mls/hr IV .[id number] [facility]; Protocol Last Admin: 10/13/19 23:38 Dose: Not Given Documented by: Sodium Chloride () 250 mls @ 15 mls/hr IV .[id number] PRN PRN Reason: Saline Flush Sodium Chloride () 250 mls @ 15 mls/hr IV .[id number] PRN PRN Reason: Additional IVPB Infusion Labetalol HCl (Trandate) 10 mg IV Q4H PRN PRN PRN Reason: Systolic blood pressure > 160 Last Admin: 10/13/19 23:52 Dose: 10 mg Documented by: Losartan Potassium (Cozaar) 50 mg PO LUNCH [facility]ENJY Morphine Sulfate () 2 mg IV Q4H PRN PRN PRN Reason: pain score 5-10/10 Last Admin: 10/14/19 01:52 Dose: 2 mg Documented by: Ondansetron HCl (Zofran) 4 mg IV Q8H PRN PRN PRN Reason: NAUSEA/VOMITING Potassium Chloride (K-Dur) 20 meq PO LUNCH [facility]ENJY Sodium Chloride () 10 - 40 ml IV UD PRN PRN Reason: SALINE FLUSH Last Admin: 10/14/19 01:53 Dose: 20 ml Documented by: Assessment/Plan Active and Suspected Problems (Last Reviewed 10/13/19 @ 22:[address] Husam Saab MD) Acute saddle pulmonary embolus (Acute) RECOMMENDATIONS: 1. Echocardiogram is pending. 2. No need for lower extremity Doppler studies, as this would not change our overall management. 3. Transition from continuous heparin infusion to Eliquis or Xarelto. 4. Perform walking oximetry study prior to consideration for discharge home. 5. Outpatient pulmonary follow-up in 2 weeks. IMPRESSIONS: 1. Acute hypoxemic respiratory insufficiency secondary to extensive bilateral pulmonary emboli Appears to be unprovoked bilateral pulmonary emboli. However, the patient does have a known history of breast cancer. BNP and troponin were within normal limits. Echocardiogram is currently pending. There was no evidence of RV strain on CTA chest. From my perspective, the patient can be transition from a continuous heparin infusion over to either Eliquis or Xarelto. Perform walking oximetry study prior to consideration for discharge home. I do not see indication to obtain lower extremity Doppler studies. The patient should follow-up in the pulmonary medicine clinic within 2 weeks of discharge home. 2. Hypokalemia Electrolyte repletion as indicated. 3. History of breast cancer/hypertension/diabetes mellitus Complicates care, management, recovery and prognosis. Continue home medications as indicated. This note was generated with [employer] software. It may contain incorrect words, spelling, and punctuation that were not noted in checking the note before signing. Inpatient E&M: 06325 Init Hosp L3
[2019-10-14] MEDS: hydroCHLOROthiazide 12.5mg 12.5 MG PO (09:35)
[2019-10-14] MEDS: Losartan Potassium 50 MG Tablet PO (09:35)
[2019-10-14 10:42] LABS: Partial Thromboplast Time 45.4 Seconds (24.1-36.2)
[2019-10-14] MEDS: Heparin Injection (Vial) 5,000 UNIT/ML VIAL IV (10:53)
--- NOTE | 2019-10-14 12:48 | PCM.PN.HOSP ---
Patient Problems: Active and Suspected Problems (Last Reviewed 10/13/19 @ 22:[address] Husam Saab MD) Acute saddle pulmonary embolus (Acute) Subjective: Patient seen and examined. She was admitted with a complaint of chest pain and was found to have bilateral PE with saddle embolus. Patient has no complaints this morning. Chest pain has resolved. She does have a history of breast cancer status post lumpectomy and admits to a sedentary lifestyle. She has not had any recent long distance travel. She is currently on heparin drip. She has not had a PE or DVT before. Troponin was not elevated. Labs and vitals reviewed. She has remained hemodynamically stable. Vitals/I&O's: Vital Signs Temp Pulse Resp BP Pulse Ox 97.7 F L 99 20 H 139/78 H 98 10/14/19 12:00 10/14/19 12:00 10/14/19 12:00 10/14/19 12:00 10/14/19 12:00 Oxygen Flow Rate (L/min) 2 Oxygen Delivery Method Room Air Weight: 195 lb 12.328 oz Body Mass Index (BMI) 33.5 Finger Stick Blood Glucose 98 Intake and Output for Last 24 Hours 10/12/19 10/13/19 10/14/19 23:59 23:59 23:59 Intake Total 11.8 / 11.8 347.85 / 347.85 Output Total 900 / 900 Balance 11.8 / 11.8 -552.15 / -552.15 General: Alert, Oriented x3, Cooperative, No apparent distress HEENT: Atraumatic, PERRLA, EOMI, Normocephalic Oral: Moist Mucosa Neck: Supple, No JVD, Negative Carotid Bruits Lungs: Clear to auscultation, Normal air movement, No rhonchi, No wheeze Cardiovascular: Regular rate, Regular Rhythm, Normal S1, Normal S2, No murmurs Abdomen: Bowel Sounds Present, Soft, Non Tender, Non-Distended, No Hepato-splenomegaly Extremities: No clubbing, No cyanosis, No edema, Capillary Refill Less than 3 Seconds Skin: No rashes, No breakdown Musculoskeletal: No Tenderness to Palpation of Joints or Extremities Lymphatic: No Cervical, Supraclavicular, or Inguinal Adenopathy Neurological: Cranial nerves II-XII grossly intact, Neuro grossly intact, Motor Exam 5/5 strength throughout Psych/Mental Status: Normal Affect, Appropriate, Alert and oriented to time, place, person, mood and affect Laboratory Results 10/13/19 18:00: WBC 7.5, RBC 4.78, Hgb 14.5, Hct 42.9, MCV 89.7, MCH 30.3, MCHC 33.8, RDW Std Deviation 42.3, RDW Coeff of Vignesh 12.9, Plt Count 199, MPV 11.0, Immature Gran % (Auto) 0.300, Neut % (Auto) 57.5, Lymph % (Auto) 33.4, [place] % (Auto) 6.8, Eos % (Auto) 1.7, Baso % (Auto) 0.3, Absolute Neuts (auto) 4.3, Absolute Lymphs (auto) 2.52, Nucleated RBC % 0 10/13/19 18:00: D-Dimer Quant (PE/DVT) 13.76 H* 10/13/19 18:00: Sodium 138, Potassium 3.5, Chloride 104, Carbon Dioxide 25.0, Anion Gap 9, BUN 20 H, Creatinine 0.98, Estim Creat Clear Calc 42.17, Est GFR (MDRD) Af Amer 71, Est GFR (MDRD) Non-Af 59 L, BUN/Creatinine Ratio 20.4 H, Glucose 136 H, Calcium 9.1, Troponin I 0.024 10/13/19 18:00: APTT 27.3 10/13/19 18:00: B-Natriuretic Peptide 25.7 10/14/19 03:50: WBC 7.2, RBC 4.20, Hgb 12.8, Hct 37.7, MCV 89.8, MCH 30.5, MCHC 34.0, RDW Std Deviation 42.0, RDW Coeff of Vignesh 13.0, Plt Count 180, MPV 10.6, Immature Gran % (Auto) 0.100, Neut % (Auto) 68.5, Lymph % (Auto) 25.1, [place] % (Auto) 5.4, Eos % (Auto) 0.6, Baso % (Auto) 0.3, Absolute Neuts (auto) 5.0, Absolute Lymphs (auto) 1.82, Nucleated RBC % 0 10/14/19 03:50: Sodium 138, Potassium 3.1 L, Chloride 103, Carbon Dioxide 27.0, Anion Gap 8, BUN 16, Creatinine 0.74, Estim Creat Clear Calc 41.33, Est GFR (MDRD) Af Amer 98, Est GFR (MDRD) Non-Af 81, BUN/Creatinine Ratio 21.6 H, Glucose 128 H, Calcium 8.5 10/14/19 03:50: APTT 148.7 H* 10/14/19 10:30: APTT 45.4 H Diagnostic Data Chest X-Ray 10/13/19 07:20 IMPRESSION: No definite acute or significant abnormality seen. Electronically Signed: Leonard Carrion MD at 19:50 EDT , Service support , Chest CTA 10/13/19 20:01 IMPRESSION: Widespread bilateral pulmonary emboli including saddle embolus extending into both the right and left main pulmonary arteries. There are findings consistent with COPD. There is no evidence of acute chest disease. Electronically Signed: Leonard Carrion MD at 20:58 EDT , Service support , ADDENDUM: 10/13/192154 IMPRESSION: Widespread bilateral pulmonary emboli including saddle embolus extending into both the right and left main pulmonary arteries. There are findings consistent with COPD. There is no evidence of acute chest disease. N.B. : Dr. Kavon MD, confirmed on 10/13/2019 21:48:52 (ET) that the referring physician received the results and does not require a verbal communication. Electronically Signed: Leonard Carrion MD at 20:58 EDT , Service support , Current Medications Acetaminophen (Tylenol) 650 mg PO Q6H PRN PRN PRN Reason: Pain Score 1-10/Temp > 100.7 F Anastrozole (Arimidex) 1 mg PO DAILY [facility] Dextrose (D50w Syringe) 0 gm IV X1 PRN; Protocol PRN Reason: Hypoglycemia Glucagon () 1 mg IM .X1 PRN PRN Reason: Hypoglycemia Heparin Sodium (Porcine) (Heparin Na) 0 unit IV UD PRN; Protocol Last Admin: 10/14/19 10:53 Dose: 1,000 unit Documented by: Hydrochlorothiazide () 12.5 mg PO DAILY [facility] Last Admin: 10/14/19 09:35 Dose: 12.5 mg Documented by: Heparin Sodium/Dextrose () 25,000 units in 250 mls @ 12 mls/hr IV .[id number] [facility]; Protocol Last Admin: 10/13/19 23:38 Dose: Not Given Documented by: Sodium Chloride () 250 mls @ 15 mls/hr IV .[id number] PRN PRN Reason: Saline Flush Sodium Chloride () 250 mls @ 15 mls/hr IV .[id number] PRN PRN Reason: Additional IVPB Infusion Labetalol HCl (Trandate) 10 mg IV Q4H PRN PRN PRN Reason: Systolic blood pressure > 160 Last Admin: 10/13/19 23:52 Dose: 10 mg Documented by: Losartan Potassium (Cozaar) 50 mg PO LUNCH [facility] Last Admin: 10/14/19 09:35 Dose: 50 mg Documented by: Morphine Sulfate () 2 mg IV Q4H PRN PRN PRN Reason: pain score 5-10/10 Last Admin: 10/14/19 01:52 Dose: 2 mg Documented by: Ondansetron HCl (Zofran) 4 mg IV Q8H PRN PRN PRN Reason: NAUSEA/VOMITING Potassium Chloride (K-Dur) 20 meq PO LUNCH [facility] Last Admin: 10/14/19 12:18 Dose: 20 meq Documented by: Sodium Chloride () 10 - 40 ml IV UD PRN PRN Reason: SALINE FLUSH Last Admin: 10/14/19 01:53 Dose: 20 ml Documented by: STROKE Vital Signs/Narrative: Vital Signs Temp Pulse Resp BP BP Pulse Ox 10/14/19 12:00 97.7 F L 99 20 H 139/78 H 98 10/14/19 11:25 90 10/14/19 11:00 91 18 118/104 H 92 10/14/19 10:00 98.5 F 101 H 22 H 99/77 95 10/14/19 09:00 107 H 21 H 149/84 H 94 Medical Necessity - Tobacco Use Smoking Status: Never smoker Assessment/Plan All Active Problems (Last Reviewed 10/13/19 @ 22:[address] Husam Saab MD) Acute saddle pulmonary embolus (Acute) Breast cancer, female (Resolved) 1. Acute bilateral PE with saddle emboli 2D echo done today showed EF of 65%, with stage 1 diastolic dysfunction on IV heparin drip. will transition to eliquis transfer to PCu only risk factors appear to be breast cancer and sedentary lifestyle 2. History of breast cancer s/p lumpectomy on anastrozole 3. Hypertension fairly controlled. on HCTZ and losartan. 4. Hypokalemia; K is 3.1. Will replace and monitr DVT prophylaxis: on therapeutic anticoagulation for PE Inpatient E&M: 24259 Subs Hosp L2
--- NOTE | 2019-10-14 13:10 | CASEMGMT ---
VALERIE ARTEAGA assessment: Face to Face with patient for initial transition planning/care coordination assessment. VALERIE ARTEAGA introduced self and role at [facility], pt voices understanding and consents to assessment at this time. Pt is sitting up in bed in no distress on room air at this time. Pt is A/Ox4 at this time and answers all questions appropriately at this time. Care providers, pharmacy, and demographics verified at this time. Presentation: SOB/CP fo one week-worsening CP tonight Admitting dx: Acute saddle embolus PCP: Anastacio TSE Specialists: ANMOL [facility] Preferred Pharmacy: [facility] Insurance: MCR A/B, [employer] Prescription Benefit: Yes Living Will/HPOA: Pt states does not have LW/HPOA and declines info at this time. LNOK: Narciso Antonymynor, Living Arrangements: Pt states lives with in 1 story home and states no concerns at home at this time. Pt states is independent with ADL's. Transportation: Pt states drives and states no transportation concerns at this time. DME/HHC: Pt states no current DME and denies need for any at this time. Pt states no hx of HHC or SNF in the past. Pt states no concerns with going home at time of discharge. Pt states is retired. Pt states does not smoke or drink ETOH. Pt states no further questions/concerns/needs at this time. CM to follow for anti-coag script and for any further discharge planning/needs. Advised pt to ask for CM if any further questions/concerns/needs arise, voices understanding. Pt Goal: Home Plan[place] VALERIE ARTEAGA
--- NOTE | 2019-10-14 14:22 | CASEMGMT ---
Per Dr. Sterling, pt to be sent home on Eliquis at discharge tomorrow and med e-scribed to [facility] [place]. Call to [facility] and per pharmacist, pt's co-pay is $25. Lillie PADILLA CM
[2019-10-14] MEDS: Anastrozole 1 MG Tablet PO (15:54)
[2019-10-14] MEDS: APIXABAN 5 MG TABLET 10 MG PO ×2 (16:00→21:11)
[2019-10-14 18:27] LABS: Partial Thromboplast Time 28.5 Seconds (24.1-36.2)
[2019-10-15 02:59] VITALS: BP 158/86; PULSE 96; RESP 17; TEMP 36.7; O2SAT 95
[2019-10-15 03:26] VITALS: PULSE 98
[2019-10-15 07:07] VITALS: PULSE 92
[2019-10-15 08:57] LABS: Anion Gap 7 (5-15); BUN 18 mg/dL (7-18); Chloride 104 mmol/L (98-107); Creatinine, Serum 0.72 mg/dL (0.55-1.02); EST Glomerular Filtration Rate 84 mL/min (>60); Est Glom Filt Rate - Afr Amer 101 mL/min (>60); Estimated Creatinine Clearance 41.33 ml/min; Glucose 118 mg/dL (74-106); Potassium 3.7 mmol/L (3.5-5.1); Sodium Level 138 mmol/L (136-145)
[2019-10-15 09:00] VITALS: BP 161/76; PULSE 117; RESP 18; TEMP 36.8; O2SAT 92
[2019-10-15 09:31] VITALS: O2SAT 92
[2019-10-15] MEDS: APIXABAN 5 MG TABLET 10 MG PO (09:38)
[2019-10-15] MEDS: hydroCHLOROthiazide 12.5mg 12.5 MG PO (09:39)
[2019-10-15] MEDS: Anastrozole 1 MG Tablet PO (09:39)
--- NOTE | 2019-10-15 09:57 | PCM.DC ---
- Discharge Diagnoses Current Active Problems: Current Active and Chronic Problems (Last Reviewed 10/13/19 @ 22:[address] Husam Saab MD) Acute saddle pulmonary embolus (Acute) You will use the following diet at home:: Cardiac Your food should be the consistency of: Regular Your liquids should be the consistency of: Regular/Thin Discharge Activity: Return to Normal Activity Weight Bearing Status: Weight bearing as tolerated Call your doctor if you observe: Shortness of breath, Dizziness, Fainting spells, Chest pain, Increased palpitations (irregular heartbeat) Instructions: Pulmonary Embolism Allergies/Adverse Reactions: Allergies atorvastatin [From Lipitor] Allergy (Mild, Verified 10/19/17 10:41) Unknown ergocalciferol (vitamin D2) [From Vitamin D2] Allergy (Mild, Verified 10/19/17 10:41) Unknown Medications to take at Discharge hydrochlorothiazide 12.5 mg tablet 12.5 mg PO QDAY 07/01/17 losartan 50 mg tablet 50 mg PO LUNCH 07/01/17 potassium chloride 20 mEq tablet,extended release 20 meq PO LUNCH 07/01/17 Anastrozole [Arimidex] 1 tab PO DAILY 10/13/19 Apixaban [Eliquis] 5 mg PO UD #60 tab 10/14/19 The following prescriptions were given: Apixaban [Eliquis] 5 mg PO UD #60 tab Transmission Status: Received by [facility]/pharmacy #[id number] Primary Care Physician: Roscoe Chaves III, MD [Primary Care Provider] - Please follow up with your Primary Care Physician in: 1 week Test Results: Test results from this visit will be discussed in further detail at your follow-up appointment, if applicable. Please Follow Up With: Cody Ling DO When: 1-2 weeks When: follow up with your oncologist in 1-2 weeks Proposed Discharge Date: 10/15/19
--- NOTE | 2019-10-15 09:58 | EKG12_ITS ---
Test Reason : TACHY Blood Pressure : / mmHG Vent. Rate : 107 BPM Atrial Rate : 107 BPM P-R Int : 134 ms QRS Dur : 072 ms QT Int : 346 ms P-R-T Axes : 063 029 038 degrees QTc Int : 461 ms Sinus tachycardia Otherwise normal ECG Confirmed by AMANDA ALVARADO, JUNI ([id number]), desk editor AMALIA NAIK ([id number] on 10/19/2019 3:07:21 PM Referred By: Husam Saab Confirmed By:JUNI PATEL MD
--- NOTE | 2019-10-15 10:00 | PCM.DC.SUM ---
Discharge Date and Diagnosis Date of Admission: 10/13/19 Date of Discharge: 10/15/19 - Primary Discharge Diagnosis Acute Problems: Active Problems (Last Reviewed 10/13/19 @ 22:[address] Husam Saab MD) Acute saddle pulmonary embolus (Acute) - Secondary Discharge Diagnosis Chronic Problems: Chronic Problems (Last Reviewed 10/13/19 @ 22:[address] Husam Saab MD) IBS (irritable bowel syndrome) (Chronic) Vitamin D deficiency (Chronic) Hemorrhoids (Chronic) History of partial mastectomy of right breast (Chronic) with axillary lymphadenectomy 12/06/06 S/P colonoscopy (Chronic) 12/16/01, 11/18/06 S/P hysterectomy (Chronic) S/P lumpectomy of breast (Chronic) 2006 Hypertension (Chronic) Diabetes (Chronic) Hx of breast cancer (Chronic) Hospital Course and Treatment Imaging Results: Diagnostic Data Chest X-Ray 10/13/19 07:20 IMPRESSION: No definite acute or significant abnormality seen. Electronically Signed: Leonard Carrion MD at 19:50 EDT , Service support , Chest CTA 10/13/19 20:01 IMPRESSION: Widespread bilateral pulmonary emboli including saddle embolus extending into both the right and left main pulmonary arteries. There are findings consistent with COPD. There is no evidence of acute chest disease. Electronically Signed: Leonard Carrion MD at 20:58 EDT , Service support , ADDENDUM: 10/13/19 2155 IMPRESSION: Widespread bilateral pulmonary emboli including saddle embolus extending into both the right and left main pulmonary arteries. There are findings consistent with COPD. There is no evidence of acute chest disease. N.B. : Dr. Kavon MD, confirmed on 10/13/2019 21:48:52 (ET) that the referring physician received the results and does not require a verbal communication. Electronically Signed: Leonard Carrion MD at 20:58 EDT , Service support , critical care- Dr Ling Procedures: 2-D Echocardiogram Summary of Care Provided: The patient is a 74 year old F with an extensive past medical history as outlined which includes breast cancer status post partial mastectomy and lumpectomy. She was admitted through the ED on 10/13/2019 with a complaint of chest pain and shortness of breath. She had no history of long distance travel or prolonged immobility and has never had any thromboembolic disease before. She had no family history of thromboembolic disease. On admission, she was afebrile but tachycardic and hypertensive. D-dimer was elevated at 13.7 and CBC was unremarkable. Chemistry was also unremarkable. Initial troponin was negative and BNP was only 25. CTA of the chest showed extensive bilateral pulmonary emboli including a saddle embolus with no evidence of right ventricular strain. Patient was placed on heparin drip and admitted to the ICU. 2D echo done showed EF of 65% with stage I diastolic dysfunction. There was no evidence of right ventricular strain with RVSP of 33 mmHg. Patient remained stable and was transitioned from IV heparin to p.o. Eliquis. She remained stable. She did have mild tachycardia but that was thought to be due to the PE and clot burden. She ambulated well without shortness of breath. She was discharged home on 10/15/2019 with a prescription for p.o. Eliquis 10 mg twice daily till 10/20/2019 then continue with 5 mg twice daily from 10/21/2019 onwards. Patient was counseled at the most obvious risk factor that she had was the history of cancer. She is therefore to follow-up with her primary care doctor and pulmonology as well as oncologist. She was counseled that she will need to be on anticoagulation for at least 6 months but her doctors would make a decision on outpatient basis to decide whether to continue for longer or not. Patient seen and examined prior to discharge. She had no complaints and was ready to be discharged home. Review of systems is otherwise negative. Labs and vitals reviewed. Home meds reviewed and reconciled. O/E: Vital Signs Temp Pulse Resp BP Pulse Ox 98.3 F 117 H 18 161/76 H 92 10/15/19 09:00 10/15/19 09:00 10/15/19 09:00 10/15/19 09:00 10/15/19 09:31 [] General: Alert, Oriented x3, Cooperative, No apparent distress HEENT: Atraumatic, PERRLA, EOMI, Normocephalic Oral: Moist Mucosa Neck: Supple, No JVD, Negative Carotid Bruits Lungs: Clear to auscultation, Normal air movement, No rhonchi, No wheeze Cardiovascular: Regular rate, Regular Rhythm, Normal S1, Normal S2, No murmurs Abdomen: Bowel Sounds Present, Soft, Non Tender, Non-Distended, No Hepato-splenomegaly Extremities: No clubbing, No cyanosis, No edema, Capillary Refill Less than 3 Seconds Skin: No rashes, No breakdown Musculoskeletal: No Tenderness to Palpation of Joints or Extremities Lymphatic: No Cervical, Supraclavicular, or Inguinal Adenopathy Neurological: Cranial nerves II-XII grossly intact, Neuro grossly intact, Motor Exam 5/5 strength throughout Psych/Mental Status: Normal Affect, Appropriate, Alert and oriented to time, place, person, mood and affect Plan as above. - Physical Exam Vitals/I&O's: Vital Signs Temp Pulse Resp BP Pulse Ox 98.3 F 117 H 18 161/76 H 92 10/15/19 09:00 10/15/19 09:00 10/15/19 09:00 10/15/19 09:00 10/15/19 09:31 Oxygen Flow Rate (L/min) 2 Oxygen Delivery Method Room Air Weight: 191 lb 12.835 oz Body Mass Index (BMI) 33.5 Finger Stick Blood Glucose 98 Intake and Output for Last 24 Hours 10/13/19 10/14/19 10/15/19 23:59 23:59 23:59 Intake Total 11.8 / 11.8 898.35 / 898.35 500 / 500 Output Total 1300 / 1300 Balance 11.8 / 11.8 -401.65 / -401.65 500 / 500 Laboratory Results 10/14/19 10:30: APTT 45.4 H 10/14/19 17:37: APTT 28.5 10/15/19 08:26: Sodium 138, Potassium 3.7, Chloride 104, Carbon Dioxide 27.0, Anion Gap 7, BUN 18, Creatinine 0.72, Estim Creat Clear Calc 41.33, Est GFR (MDRD) Af Amer 101, Est GFR (MDRD) Non-Af 84, BUN/Creatinine Ratio 25.0 H, Glucose 118 H, Calcium 9.0 Current Medications Acetaminophen (Tylenol) 650 mg PO Q6H PRN PRN PRN Reason: Pain Score 1-10/Temp > 100.7 F Anastrozole (Arimidex) 1 mg PO DAILY [facility] Last Admin: 10/15/19 09:39 Dose: 1 mg Documented by: Apixaban (Eliquis) 10 mg PO BID [facility] Last Admin: 10/15/19 09:38 Dose: 10 mg Documented by: Dextrose (D50w Syringe) 0 gm IV X1 PRN; Protocol PRN Reason: Hypoglycemia Glucagon () 1 mg IM .X1 PRN PRN Reason: Hypoglycemia Hydrochlorothiazide () 12.5 mg PO DAILY [facility] Last Admin: 10/15/19 09:39 Dose: 12.5 mg Documented by: Sodium Chloride () 250 mls @ 15 mls/hr IV .[id number] PRN PRN Reason: Saline Flush Sodium Chloride () 250 mls @ 15 mls/hr IV .[id number] PRN PRN Reason: Additional IVPB Infusion Labetalol HCl (Trandate) 10 mg IV Q4H PRN PRN PRN Reason: Systolic blood pressure > 160 Last Admin: 10/13/19 23:52 Dose: 10 mg Documented by: Losartan Potassium (Cozaar) 50 mg PO LUNCH [facility] Last Admin: 10/14/19 09:35 Dose: 50 mg Documented by: Morphine Sulfate () 2 mg IV Q4H PRN PRN PRN Reason: pain score 5-10/10 Last Admin: 10/14/19 01:52 Dose: 2 mg Documented by: Ondansetron HCl (Zofran) 4 mg IV Q8H PRN PRN PRN Reason: NAUSEA/VOMITING Potassium Chloride (K-Dur) 20 meq PO LUNCH [facility] Last Admin: 10/14/19 12:18 Dose: 20 meq Documented by: Sodium Chloride () 10 - 40 ml IV UD PRN PRN Reason: SALINE FLUSH Last Admin: 10/14/19 01:53 Dose: 20 ml Documented by: Discharge Diet: Low fat/ Low Cholesterol Discharge Activity: Return to Normal Activity Weight Bearing Status: Weight bearing as tolerated Call your doctor if you observe: Shortness of breath, Dizziness, Fainting spells, Chest pain, Increased palpitations (irregular heartbeat) Home Medications: Medications to take at Discharge hydrochlorothiazide 12.5 mg tablet 12.5 mg PO QDAY 07/01/17 losartan 50 mg tablet 50 mg PO LUNCH 07/01/17 potassium chloride 20 mEq tablet,extended release 20 meq PO LUNCH 07/01/17 Anastrozole [Arimidex] 1 tab PO DAILY 10/13/19 Apixaban [Eliquis] 5 mg PO UD #60 tab 10/14/19 Following Prescrptions Were Given to Patient: Apixaban [Eliquis] 5 mg PO UD #60 tab Transmission Status: Received by [id number] Primary Care Physician: Roscoe Chaves III, MD [Primary Care Provider] - Please follow up with your Primary Care Physician in: 1 week Please Follow Up With: Cody Ling DO When: 1-2 weeks When: follow up with your oncologist in 1-2 weeks Patient Instructions: Pulmonary Embolism Disposition: Home Minutes spent on discharge:: 40 Patient Condition:: Stable Medical Necessity - Tobacco Use Smoking Status: Never smoker Meaningful Use Info Meaningful Use Diagnoses (Choose all that apply): VTE - VTE Anticoag overlap given w/in hospital stay or rx'd at dc?: Yes Pt receive overlap for 5 days?: No Reason overlap not ordered, prescribed, or given for 5 days: Treatment Not Indicated Inpatient E&M: [id number] [facility]
[2019-10-15] MEDS: Losartan Potassium 50 MG Tablet PO (11:30)
== END 2019-10-15 12:03 | disposition home or self-care (01) | DRG 176 ==
LOC: ED 21:05 → ICU 23:17 → PCU 10-14 15:15
PROVIDERS: Internal Medicine Critical Care Medicine; Admitting Provider Hospitalist; Emergency Provider Emergency Medicine; PCP Family Medicine; Referring Provider Hospitalist; Visit Provider Student in an Organized Health Care Education/Training Program
DX: I26.92 Saddle embolus of pulmonary artery without acute cor pulmonale (principal); R09.02 Hypoxemia; E87.6 Hypokalemia; E11.9 Type 2 diabetes mellitus without complications; I10 Essential (primary) hypertension; E78.5 Hyperlipidemia, unspecified; K58.9 Irritable bowel syndrome, unspecified; M79.604 Pain in right leg; M79.605 Pain in left leg; Z79.899 Other long term (current) drug therapy; Z85.3 Personal history of malignant neoplasm of breast; Z90.11 Acquired absence of right breast and nipple; Z90.710 Acquired absence of both cervix and uterus
CPT/HCPCS: 36415; 71045; 71275; 80048; 83880; 84484; 85025; 85379; 85730; 93005; 93306; 97116; 97162; 97802; 99285; Q9957; A4216; C8929

== ENCOUNTER 2021-10-09 10:30 | Outpatient (RCR) | payer MEDICARE, OTHER, SELFPAY ==
--- NOTE | 2021-09-15 10:21 | HP.PTEVAL_ITS ---
Patient's Visit Information YON RUBIO is a 75 year old F referred to Physical Therapy by Dr. Gentry Escobar DO with a diagnosis of Right Knee OA. Date of Evaluation: 09/15/21 Physical Therapist: Carol Valencia DPT - Visit Plan Frequency: 2x /Week Duration: 4 Weeks Plan: Focus on LE and core strength/stabilization, Knee Extension, Flex and functional mobility. HEP Given IE: Bolster Extn Stretch, quad set with towel, SLR, Hamstring Stretch - Subjective Patient reports that her right knee has been bothering her for a long time but she has good days and bad days. Insidious onset- sometimes just getting out of bed and getting started is hard - when she sits to long or when she stands to long. Pain is along the medial joint line, and lateral posterior knee and radiates to the calf. She has clicking and catching in the knee- sharmin but hasn't been that bad lately. Uses a cane sometimes but not very often. Worst: 6/10 Best: 0/10 Eases: wait it out. Describes the pain as sharp. No falls. She lives with her and they work as a team. She is fully I with all ADL's. She has had x-ray which showed OA- no injections. They gave her pain medication- Meloxicam which helps a lot- she just started taking it on Wednesday. She is not very active she likes to sit and feels she sits to much. 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 Went to see Dr. Escobar- gave her pain meds, ice 2x a day- do therapy and return in 6 weeks. Does have stairs at home that she does non recip. Does not drive. Sleep: not disturbed. PMHx: breast cancer (2017). Meds: see list. - Objective Posture: FH, RS- can correct but does not maintain. Gait: antalgic- decreased stance on the right LE with poor heel/toe due to ROM deficit. Stairs: asc/desc 8 non recip with 2 HR. SLS: weight shift but does not SLS. HR/TR: able with UE A. Girth: Patella: 56 cm (pants on). Palpation: tender along medial and lateral joint line medial>lateral, posterior knee- no calf tenderness. ROM: 20-90 degrees. Strength: Core: poor Hip: 4/5 SLR: moderate lag, Quad set: visible but diminished Ankle: 5/5. Flex: HS: severe Gastroc: moderate, Solues: moderate, Quad: severe. - Special Tests R Knee Valgus - MCL: Positive R Knee Varus - LCL: Positive R Knee Patellar Grind - PFS: Positive - Balance/Special Test Scores Lower Extremity Functional Score: 42 TUG Test Time Seconds: 17 - Goals Goal 1:: Patient will be I with HEP and progression Goal Time Frame: 4-6 Weeks Goal 2:: Patient will ambulate >300 feet with a normalized gait pattern Goal Time Frame: 6-8 Weeks Goal 3:: Patient will asc/desc 8 stairs recip with 1 HR Goal Time Frame: 6-8 Weeks Goal 4:: Patient will report subjectively 80% improvement. Goal Time Frame: 4-6 Weeks Goal 5:: Patient will achieve 0 degrees of extension of the right knee Goal Time Frame: 4-6 Weeks - Rehabilitation Potential Physical Therapy Diagnosis: Patient presents with hypomobility- she has decreased LE and core strength/stabilization, extension ROM, flexibility and muscular endurance leading to abnormal gait and increased pain with ADL's. Rehabilitation Potential: Good - Anticipated Interventions Patient/Client Instruction: Educate patient on: Benefits of Fitness Program Therapeutic Exercise to Include: Strength training, Endurance training, Balance training, Coordination, Agility training, Body mechanics, Postural training, Flexibilty training, Gait and locomotor training, Neuromotor development, Dynamic Lumbar Stabilization, Scapular Strength/Stabilization For the Purpose of:: To improve muscle performance and motor function TENS: Yes Cryotherapy (ice pack, ice massage): Yes Thermo therapy (hot pack): Yes Thank you for the opportunity to evaluate your patient. For Medicare and Medicare HMO plans, please review the plan of care and approve it. It will need to be FAXED BACK to us at [phone] for Medicare purposes. For Medicare only, by signing this I certify the plan of care. Please let me know if there are questions or concerns regarding this plan of care. Physician Signature: Date:
--- NOTE | 2021-10-09 11:24 | HP.PTEVAL ---
Patient's Visit Information YON RUBIO is a 76 year old F referred to Physical Therapy by Dr. Gentry Escobar DO with a diagnosis of Right Knee OA. Date of Evaluation: 09/15/21 Physical Therapist: Carol Valencia DPT - Visit Plan Frequency: 2x /Week Duration: 4 Weeks Plan: 10/09/21: Discharge to [facility]. Focus on LE and core strength/stabilization, Knee Extension, Flex and functional mobility. - Subjective Patient reports that her right knee has been bothering her for a long time but she has good days and bad days. Insidious onset- sometimes just getting out of bed and getting started is hard - when she sits to long or when she stands to long. Pain is along the medial joint line, and lateral posterior knee and radiates to the calf. She has clicking and catching in the knee- sharmin but hasn't been that bad lately. Uses a cane sometimes but not very often. Worst: 6/10 Best: 0/10 Eases: wait it out. Describes the pain as sharp. No falls. She lives with her and they work as a team. She is fully I with all ADL's. She has had x-ray which showed OA- no injections. They gave her pain medication- Meloxicam which helps a lot- she just started taking it on Wednesday. She is not very active she likes to sit and feels she sits to much. 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 Went to see Dr. Escobar- gave her pain meds, ice 2x a day- do therapy and return in 6 weeks. Does have stairs at home that she does non recip. Does not drive. Sleep: not disturbed. PMHx: breast cancer (2017). Meds: see list. - Pain RLE Pain Intensity (Out of 10): 0 - Objective Posture: FH, RS- can correct but does not maintain. Gait: antalgic- decreased stance on the right LE with poor heel/toe due to ROM deficit. Stairs: asc/desc 8 non recip with 2 HR. SLS: weight shift but does not SLS. HR/TR: able with UE A. Girth: Patella: 56 cm (pants on). Palpation: tender along medial and lateral joint line medial>lateral, posterior knee- no calf tenderness. ROM: 20-90 degrees. Strength: Core: poor Hip: 4/5 SLR: moderate lag, Quad set: visible but diminished Ankle: 5/5. Flex: HS: severe Gastroc: moderate, Solues: moderate, Quad: severe. - Special Tests R Knee Valgus - MCL: Positive R Knee Varus - LCL: Positive R Knee Patellar Grind - PFS: Positive - Balance/Special Test Scores Lower Extremity Functional Score: 70 TUG Test Time Seconds: 17 - Goals Goal 1:: Patient will be I with HEP and progression Goal Time Frame: 4-6 Weeks Goal 2:: Patient will ambulate >300 feet with a normalized gait pattern Goal Time Frame: 6-8 Weeks Goal 3:: Patient will asc/desc 8 stairs recip with 1 HR Goal Time Frame: 6-8 Weeks Goal 4:: Patient will report subjectively 80% improvement. Goal Time Frame: 4-6 Weeks Goal 5:: Patient will achieve 0 degrees of extension of the right knee Goal Time Frame: 4-6 Weeks - Rehabilitation Potential Physical Therapy Diagnosis: Patient presents with hypomobility- she has decreased LE and core strength/stabilization, extension ROM, flexibility and muscular endurance leading to abnormal gait and increased pain with ADL's. Rehabilitation Potential: Good - Anticipated Interventions Patient/Client Instruction: Educate patient on: Benefits of Fitness Program Therapeutic Exercise to Include: Strength training, Endurance training, Balance training, Coordination, Agility training, Body mechanics, Postural training, Flexibilty training, Gait and locomotor training, Neuromotor development, Dynamic Lumbar Stabilization, Scapular Strength/Stabilization For the Purpose of:: To improve muscle performance and motor function TENS: Yes Cryotherapy (ice pack, ice massage): Yes Thermo therapy (hot pack): Yes Thank you for the opportunity to evaluate your patient. For Medicare and Medicare HMO plans, please review the plan of care and approve it. It will need to be FAXED BACK to us at [phone] for Medicare purposes. For Medicare only, by signing this I certify the plan of care. Please let me know if there are questions or concerns regarding this plan of care. Physician Signature: Date:
--- NOTE | 2021-10-09 11:25 | HP.PTDCSUM_ITS ---
It has been my pleasure to treat YON RUBIO referred by Dr. Gentry Escobar DO, with the diagnosis of Right Knee OA for a total of 8 visit(s). Discharge Date: Please see the following information for a summary of their discharge status. Subjective: Patient reports that her knee is back to normal. She plans to continue to do her exercises. RLE Pain Intensity (Out of 10): 0 % Improvement: 100 Objective/Function: Posture: Fair throughout. Gait: no deviation noted Stairs: asc/desc 8 recip with 1 HR. SLS: weight shift but does not SLS. HR/TR: able with UE A. Palpation: not tender to touch ROM: 10-110 degrees. Strength: Core: fair Hip: 4+/5 Knee: 4+/5 Ankle: 5/5. Flex: HS: mod Gastroc: moderate, Solues: moderate, Quad: mod. Goal 1:: Patient will be I with HEP and progression Goal Progress: Goal Met Goal 2:: Patient will ambulate >300 feet with a normalized gait pattern Goal Progress: Goal Met Goal 3:: Patient will asc/desc 8 stairs recip with 1 HR Goal Progress: Goal Met Goal 4:: Patient will report subjectively 80% improvement. Goal Progress: Goal Met Goal 5:: Patient will achieve 0 degrees of extension of the right knee Goal Progress: Progressing Plan: 10/09/21: Discharge to [facility]. Focus on LE and core strength/stabilization, Knee Extension, Flex and functional mobility. If there are questions or concerns regarding this patient's physical therapy, please feel free to call me at [phone]. Thank you for the referral of this patient. Sincerely, Carol Valencia, DPT Balance/Gait/Functional tests - Balance/Special Test Scores Lower Extremity Functional Score: 70 TUG Test Time Seconds: 17 Tug Test: <20 sec.=mostly independent
== END 2021-10-09 19:00 | disposition home or self-care (01) ==
LOC: PT 10:30
PROVIDERS: PCP Family Medicine; Referring Provider Orthopaedic Surgery; Visit Provider Orthopaedic Surgery
DX: M17.11 Unilateral primary osteoarthritis, right knee (principal)
CPT/HCPCS: 97110; 97140; 97162; 97164

== ENCOUNTER 2022-05-12 19:05 | Emergency (ER) | payer MEDICARE, OTHER, SELFPAY ==
[2022-05-12 19:06] VITALS: BP 184/83; PULSE 98; RESP 22; TEMP 37.1; O2SAT 98; BMI 31.1
[2022-05-12 19:22] VITALS: O2SAT 97
--- NOTE | 2022-05-12 19:24 | ED.VIS.DYS ---
HPI History of Present Illness Chief Complaint: Shortness of Breath Narrative Narrative: 76-year-old female past medical history of hypertension, diabetes, pulmonary embolism on Eliquis presents with shortness of breath that she experienced this afternoon when she awoke from a nap. She states that approximately 2 to 3 hours ago she was taking a nap in a recliner. When she awoke she felt very short of breath, thinking that she was having a panic attack also. She felt like she could not breathe. Of note, she was diagnosed with COVID on April 30, 2012 days ago by home test. She states her fevers and cough have resolved. She states she called her granddaughter who is medical and suggested that even though she was able to calm her down, that she be evaluated in the emergency department because of the difficulty breathing while lying flat/orthopnea and her history of pulmonary embolism. Patient states that her breathing has significantly improved since then. [facility] Medical History (Updated 05/12/22 @ 21:00 by Scotty Solomon MD) Diabetes Hemorrhoids Hx of breast cancer Hypertension IBS (irritable bowel syndrome) Vitamin D deficiency Home Medications hydrochlorothiazide 12.5 mg tablet 12.5 mg PO QDAY water pill 07/01/17 [History Last Taken Unknown] losartan 50 mg tablet (Cozaar) 50 mg PO LUNCH blood pressure 07/01/17 [History Last Taken Unknown] potassium chloride 20 mEq tablet,extended release 20 meq PO LUNCH supplement 07/01/17 [History Last Taken Unknown] anastrozole 1 mg tablet 1 tab PO DAILY cancer treatment 10/13/19 [History Last Taken Unknown] apixaban 5 mg tablet 5 mg PO BID #60 tabs 10/30/19 [Rx Last Taken Unknown] ciprofloxacin HCl 500 mg tablet (Cipro) 500 mg PO BID 10/30/19 [History Last Taken Unknown] Allergy/AdvReac Type Severity Reaction Status Date / Time atorvastatin [From Lipitor] Allergy Mild Unknown Verified 05/12/22 19:05 ergocalciferol (vitamin D2) Allergy Mild Unknown Verified 05/12/22 19:05 [From Vitamin D2] Family History Mother Breast cancer Father Heart disease Hypertension Surgical History History of partial mastectomy of right breast History of removal of Port-a-Cath Port-a-cath in place S/P colonoscopy S/P hysterectomy S/P lumpectomy of breast S/P lumpectomy, left breast [place] node Social History Smoking Status: Never smoker second hand exposure: No alcohol intake: never substance use type: does not use caffeine: Yes what type of physical activity do you participate in: none frequency: does not exercise seatbelt use: always ROS ROS ED ROS Narrative Constitutional: No fever, no chills. HEENT: No sore throat. No neck pain. No loss of vision. No rhinorrhea. Cardiovascular: No chest pain. No palpitations. No pedal edema. Respiratory: No cough, no shortness of breath currently, had dyspnea and orthopnea this afternoon when taking a nap. Abdominal: No abdominal pain. No nausea. No vomiting. Genitourinary: No dysuria. No hematuria. Musculoskeletal: No myalgias. No arthralgias. Neurologic: No headaches. No dizziness. No lightheadedness. Skin: No rash. No change in color. Psychiatric: No depression. No anxiety. EXAM Physical Exam Narrative Exam Narrative: Afebrile. Vital signs noted. HEENT: Normocephalic. Atraumatic. PERRL, EOMI. Neck soft and supple. No point tenderness or step off. Cardiovascular: Regular rate and rhythm. No murmurs, rubs, or gallops appreciated. Respiratory: No tachypnea. Lungs clear to auscultation bilaterally. No accessory muscle use. Speaking in full sentences. Moving good amount of air. Gastrointestinal: Abdomen soft, nontender, with normoactive bowel sounds. No rebound or guarding. Neurological: Awake. Alert. Nonfocal, nonlateralizing. Skin: No rash. Normal color. No pallor. Musculoskeletal: No pedal edema. Full range of motion extremities. Const Vital Signs: 05/12/22 19:06 05/12/22 19:22 Temperature 98.8 F Temperature Source Temporal Pulse Rate 98 Respiratory Rate 22 H Respiratory Effort Normal Non-Labored Respiratory Depth Normal Respiratory Pattern Normal Blood Pressure 184/83 H Blood Pressure Mean 116 Pulse Ox 98 Oxygen Delivery Method Room Air Room Air MDM MDM MDM Narrative Medical decision making narrative: Patient's pulse ox is 98% on room air without evidence of hypoxia. I do not feel that CT for PE is indicated as the patient is already taking Eliquis and has not missed a dose recently. I do think that her shortness of breath was related more to a panic attack. I will obtain a chest x-ray to look for CHF and orthopnea versus pneumothorax and pneumonia, but I think that these are highly unlikely given the patient's physical exam. Chest x-ray interpreted by myself shows no acute process, no consolidation or pneumothorax. There may be mild basilar atelectasis bilaterally. At this point in time, given that her pulse ox is 98% on room air I do feel that there may be some anxiety component related to this. She will continue her Eliquis. GEOFFREY can be discharged safely home with follow-up. Return instructions to the emergency department were reviewed. Disposition is discharged home in stable condition. Radiography Diagnostic Testing: Clinical Impression(s) from Imaging Studies Chest X-Ray 05/12/22 19:38 IMPRESSION: Elevated right hemidiaphragm and mild basilar atelectasis Electronically Signed: Yakov Hernandez MD at 20:26 EST Reading Location ID and State: [facility] / [place] , Service support , Discharge Plan Triage Chief Complaint: Shortness of Breath ED Provider: Scotty Solomon Dx/Rx/DC Orders Clinical Impression: Dyspnea, SOB (shortness of breath), Orthopnea Instructions: Shortness of Breath Coping, ED Dyspnea Prescriptions: No Action losartan [Cozaar] 50 mg tablet 50 mg PO LUNCH hydrochlorothiazide 12.5 mg tablet 12.5 mg PO QDAY potassium chloride 20 mEq tablet extended release 20 meq PO LUNCH ciprofloxacin HCl [Cipro] 500 mg tablet 500 mg PO BID apixaban 5 mg tablet 5 mg PO BID Qty: 60 5RF anastrozole 1 mg tablet 1 tab PO DAILY Label Comments: TAKE 1 TABLET BY MOUTH EVERY DAY Primary Care Provider: Lars Powers Referrals: Lars Powers MD [Primary Care Provider] - 1-2 Days if not improving Disposition Disposition: Home, Self Care
--- NOTE | 2022-05-12 19:38 | RAD_ITS ---
INDICATION: Shortness of Breath EXAMINATION/TECHNIQUE: X-RAY - XR Chest 1 View COMPARISON: October 13, 2019. FINDINGS: LINES/DEVICES: None. LUNGS: Elevated right hemidiaphragm and mild basilar atelectasis.. No pneumothorax. MEDIASTINUM AND CARDIOVASCULAR STRUCTURES: Cardiac silhouette not enlarged. Central airways and mediastinal contour are unremarkable. BONES AND SOFT TISSUES: Dorsal spine demonstrates scoliosis and degenerative change. RAD/Chest 1 View (Portable) IMPRESSION: Elevated right hemidiaphragm and mild basilar atelectasis Electronically Signed: Yakov Hernandez MD at 20:26 EST ,
[2022-05-12 21:00] VITALS: RESP 18; O2SAT 100
== END 2022-05-12 21:11 | disposition home or self-care (01) ==
PROVIDERS: Emergency Provider Emergency Medicine; PCP Family Medicine; Visit Provider Emergency Medicine
DX: R06.02 Shortness of breath (principal); E11.9 Type 2 diabetes mellitus without complications; R06.01 Orthopnea; Z79.01 Long term (current) use of anticoagulants
CPT/HCPCS: 71045; 99282

== ENCOUNTER 2023-05-20 22:20 | Emergency (ER) | payer MEDICARE, OTHER, SELFPAY ==
[2023-05-20 22:23] VITALS: BP 156/67; PULSE 96; RESP 18; TEMP 35.9; O2SAT 98
[2023-05-20 22:26] VITALS: BP 156/67; PULSE 96; RESP 18; TEMP 35.9; O2SAT 98
[2023-05-20 23:21] VITALS: RESP 16
--- NOTE | 2023-05-20 23:30 | RAD_ITS ---
INDICATION: sob EXAMINATION/TECHNIQUE: X-RAY - XR Chest 1 View COMPARISON: 05/12/2022. FINDINGS: LINES/DEVICES: None. LUNGS: No consolidation, edema or effusion. No pneumothorax. MEDIASTINUM AND CARDIOVASCULAR STRUCTURES: Cardiac silhouette not enlarged. Central airways and mediastinal contour are unremarkable. BONES AND SOFT TISSUES: Unremarkable. RAD/Chest 1 View (Portable) IMPRESSION: No radiographic evidence of acute cardiopulmonary disease. Electronically Signed: Irene Taylor MD at 23:57 EST Reading Location ID and State: [id number] / Tel , Service support ,
--- OUTSIDE RECORDS SUMMARY | 2023-05-20 23:37 | XMS RPT_ITS | CCD ---
Author Name Unknown Address [address] [place] [address] Organization [facility] Care Team Providers Care Middleware Solutions Architect Name Role Phone Gui ALVARADO MD, Dagabriellaung Unavailable Lan PADILLA, Caity Unavailable Unavailable Neno Styles Unavailable Lars Powers MD Primary Care Provider uGi ALVARADO MD, Michele Unavailable Lan PADILLA, Caity Unavailable Unavailable Neno Styles Unavailable [phone] Lars Powers MD Primary Care Provider Haagen ORE TRIMMER.ORACLE FUSION CONSULTANT, Codie Unavailable JANETTE, LARS Primary Care Unavailable HAAGEN, CODIE Referring Unavailable JANETTE, LARS Primary Care Unavailable JANETTE, LARS Referring Unavailable JANETTE, LARS Primary Care Unavailable HAAGEN, CODIE Attending Unavailable JANETTE, LARS Primary Care Unavailable JANETTE, LARS Referring Unavailable JANETTE, LARS Attending Unavailable JANETTE, LARS Primary Care Unavailable MASCI, EFRAIN A Referring Unavailable BRIDGETT HERNÁNDEZ Attending Unavailable JANETTE, LARS Primary Care Unavailable MASCI, EFRAIN A Referring Unavailable HAAGEN, CODIE Referring Unavailable JANETTE, LARS Primary Care Unavailable JANETTE, LARS Primary Care Unavailable HAAGEN, CODIE Referring Unavailable HAAGEN, CODIE Attending Unavailable JAMILAH BATES Referring Unavailable JANETTE, LARS Primary Care Unavailable JANETTE, LARS Primary Care Unavailable KETURAH ELLIOTT Attending Unavailable JAMILAH BATES Referring Unavailable JANETTE, LARS Primary Care Unavailable JANETTE, LARS Primary Care Unavailable HAAGEN, CODIE Referring Unavailable JANETTE, LARS Primary Care Unavailable HAAGEN, CODIE Referring Unavailable JANETTE, LARS Primary Care Unavailable MASCI, EFRAIN A Referring Unavailable JANETTE, LARS Primary Care Unavailable MASCI, EFRAIN A Referring Unavailable JAMILAH BATES Referring Unavailable JANETTE, LARS Primary Care Unavailable [facility] LARS Primary Care Unavailable CODIE BONNER Referring Unavailable [facility], LARS Primary Care Unavailable CODIE BONNER Referring Unavailable [facility], LARS Primary Care Unavailable EFRAIN CRAWFORD A Referring Unavailable [facility], LARS Primary Care Unavailable MASCEFRAIN Marie A Referring Unavailable [facility], LARS Primary Care Unavailable PENELOPE CARPENTER Attending Unavailable [facility], LARS Primary Care Unavailable PENELOPE CARPENTER Attending Unavailable [facility], LARS Primary Care Unavailable CODIE BONNER Attending Unavailable [facility], LARS Primary Care Unavailable CODIE BONNER Referring Unavailable EFRAIN CRAWFORD A Referring Unavailable [facility], LARS Primary Care Unavailable [facility] Primary Care Unavailable PROVIDER, UNKNOWN Attending Unavailable PROVIDER, UNKNOWN Admitting Unavailable Allergies Allergy Classification Reported Allergen(s) Allergy Type Date of Onset Reaction(s) Facility (20 sources) atorvastatin; Translations: [ATORVASTATIN CALCIUM] Drug Allergy 6 Intolerance [facility] Work Phone: (20 sources) Cholecalciferol; Translations: [CHOLECALCIFEROL (VITAMIN D3)] Drug Allergy 2 GI Upset [facility] (5 sources) HMG-CoA reductase inhibitor; Translations: [[id number] REDUCTASE INHIBITORS] Drug Intolerance 9 Myalgia [facility] (20 sources) metFORMIN; Translations: [METFORMIN] Drug Allergy 9 Diarrhea [facility] (20 sources) HMG-CoA reductase inhibitor Drug Intolerance 9 Myalgia [facility] Medications Current Medications Medication Drug Class(es) Dates Sig (Normalized) Sig (Original) amoxicillin 875 mg / clavulanate 125 mg oral tablet (2 sources) Penicillin-class Antibacterial Start: 03-29-2023 End: 04-08-2023 take 1 tablet by mouth twice daily amoxicillin-clavu lanate potassium (AUGMENTIN) 875-125 mg per tablet Indications: Headache, unspecified headache type , Bacterial sinusitis Take 1 tablet by mouth two times a day for 10 days. 20 tablet 0 03/29/2023 04/08/2023 Active Completed/Discontinued Medications Medication Drug Class(es) Dates Sig (Normalized) Sig (Original) anastrozole 1 mg oral tablet (20 sources) Aromatase Inhibitor Start: 05-10-2020 End: 01-07-2023 take 1 tablet by mouth once daily anastrozole (ARIMIDEX) 1 mg tablet Indications: Malignant neoplasm of upper-outer quadrant of left breast in female, estrogen receptor positive (HCC) (HCC) , Encounter for screening mammogram for high-risk patient Take 1 tablet by mouth once daily. 90 tablet 3 01/07/2023 Active Problems Active Problems Problem Classification Problem Date Documented Da te Episodic/Chronic Allergic reactions (2 sources) Eczema; Translations: [Dermatitis, unspecified] Onset: 03-29-2023 03-29-2023 Episodic Anxiety disorders (20 sources) Severe anxiety (panic); Translations: [Panic disorder [episodic paroxysmal anxiety]] Onset: 10-24-2019 10-24-2019 Chronic Bacterial infection; unspecified site (1 source) Other specified bacterial agents as the cause of diseases classified elsewhere; Translations: [Bacterial sinusitis] Onset: 03-29-2023 Episodic Cancer of breast (20 sources) Malignant neoplasm of upper-outer quadrant of female breast; Translations: [Malignant neoplasm of upper-outer quadrant of unspecified female breast] Onset: 12-05-2006 11-22-2017 Chronic Cardiac dysrhythmias (3 sources) Tachycardia; Translations: [Tachycardia, unspecified] Onset: 04-27-2023 Episodic Complication of device; implant or graft (2 sources) Complication of intravascular line; Translations: [Unspecified complication of cardiac and vascular prosthetic device, implant and graft, sequela] Onset: 05-03-2023 05-03-2023 Episodic Diabetes mellitus with complications (20 sources) Type 2 diabetes mellitus; Translations: [Type 2 diabetes mellitus with unspecified diabetic retinopathy without macular edema] Onset: 09-08-2018 09-08-2018 Chronic Diabetes mellitus without complication (2 sources) Type 2 diabetes mellitus without complication; Translations: [Type 2 diabetes mellitus without complications] Onset: 04-27-2023 04-27-2023 Chronic Disorders of lipid metabolism (20 sources) Hyperlipidemia; Translations: [Hyperlipidemia, unspecified] Onset: 06-02-2017 06-02-2017 Chronic Essential hypertension (20 sources) Benign essential hypertension; Translations: [Essential (primary) hypertension] Onset: 05-04-2005 05-04-2005 Chronic Fluid and electrolyte disorders (1 source) Hypokalemia; Translations: [Hypokalemia] Episodic Genitourinary symptoms and ill-defined conditions (20 sources) Female stress incontinence; Translations: [Stress incontinence (female) (male)] Onset: 07-16-2009 07-16-2009 Chronic Headache; including migraine (1 source) Headache; Translations: [Headache, unspecified headache type] 03-29-2023 Episodic Headache; including migraine (1 source) Headache; including migraine; Translations: [Headache, unspecified headache type] Onset: 03-29-2023 Malaise and fatigue (2 sources) Fatigue; Translations: [Other fatigue] Onset: 04-27-2023 04-27-2023 Episodic Menopausal disorders (20 sources) Atrophic vaginitis; Translations: [Postmenopausal atrophic vaginitis] Onset: 07-16-2009 07-16-2009 Chronic Nutritional deficiencies (20 sources) Vitamin D deficiency; Translations: [Vitamin D deficiency, unspecified] Onset: 08-26-2010 08-26-2010 Chronic Other bone disease and musculoskeletal deformities (1 source) Disorder of bone, unspecified; Translations: [Disorder of bone and cartilage, unspecified] 05-04-2023 Episodic Other diseases of kidney and ureters (1 source) Disorder of kidney and ureter, unspecified; Translations: [Decreased renal function] Onset: 04-29-2023 Episodic Other ear and sense organ disorders (20 sources) Hearing loss; Translations: [Unspecified hearing loss, unspecified ear] Onset: 08-07-2016 08-07-2016 Chronic Other ear and sense organ disorders (1 source) Bilateral hearing loss; Translations: [Unspecified hearing loss, bilateral] 02-26-2023 Chronic Other ear and sense organ disorders (1 source) Unspecified hearing loss, bilateral; Translations: [Bilateral hearing loss, unspecified hearing loss type] Onset: 08-07-2016 Chronic Other gastrointestinal disorders (1 source) Occult blood in stools; Translations: [Other fecal abnormalities] 05-03-2023 Episodic Other gastrointestinal disorders (1 source) Stool finding; Translations: [Other fecal abnormalities] 05-03-2023 Episodic Other gastrointestinal disorders (2 sources) Other fecal abnormalities; Translations: [Positive fecal occult blood test] Onset: 05-03-2023 Episodic Other liver diseases (1 source) Lesion of liver; Translations: [Liver disease, unspecified] 05-04-2023 Chronic Other liver diseases (3 sources) Liver disease, unspecified; Translations: [Liver lesion] Onset: 04-29-2023 Chronic Other liver diseases (1 source) Elevated liver enzymes level; Translations: [Abnormal levels of other serum enzymes] 05-03-2023 Episodic Other liver diseases (2 sources) Abnormal levels of other serum enzymes; Translations: [Elevated liver enzymes] Onset: 04-29-2023 Episodic Other nutritional; endocrine; and metabolic disorders (11 sources) Hypercalcemia; Translations: [Hypercalcemia] Onset: 05-04-2023 05-04-2023 Chronic Other nutritional; endocrine; and metabolic disorders (1 source) Hypercalcemia; Translations: [Serum calcium elevated] Onset: 04-29-2023 Chronic Other nutritional; endocrine; and metabolic disorders (2 sources) Weight loss; Translations: [Abnormal weight loss] 04-27-2023 Episodic Other nutritional; endocrine; and metabolic disorders (1 source) Abnormal weight loss; Translations: [Weight loss] Onset: 05-03-2023 Episodic Other screening for suspected conditions (not mental disorders or infectious disease) (2 sources) Imaging of thorax abnormal; Translations: [Abnormal findings on diagnostic imaging of other specified body structures] Onset: 05-03-2023 05-03-2023 Chronic Other screening for suspected conditions (not mental disorders or infectious disease) (8 sources) Patient encounter status; Translations: [Encounter for screening mammogram for malignant neoplasm of breast] Onset: 05-06-2023 Episodic Other upper respiratory disease (1 source) Nasal sinus problem; Translations: [Other specified disorders of nose and nasal sinuses] 03-29-2023 Episodic Other upper respiratory disease (1 source) Other specified disorders of nose and nasal sinuses; Translations: [Sinus pressure] Onset: 03-29-2023 Episodic Other upper respiratory infections (2 sources) Bacterial sinusitis; Translations: [Chronic sinusitis, unspecified] Onset: 03-29-2023 03-29-2023 Chronic Pulmonary heart disease (20 sources) Saddle embolus of pulmonary artery; 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] Onset: 10-31-2019 10-31-2019 Chronic Residual codes; unclassified (2 sources) Other general symptoms and signs; Translations: [Other general symptoms] Onset: 04-27-2023 04-27-2023 Episodic Secondary malignancies (7 sources) Secondary nodes - axilla/arm; Translations: [Secondary and unspecified malignant neoplasm of axilla and upper limb lymph nodes] Onset: 07-06-2007 11-22-2017 Chronic Secondary malignancies (20 sources) 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; Translations: [Secondary and unspecified malignant neoplasm of axilla and upper limb lymph nodes] Onset: 07-06-2007 11-22-2017 Chronic Secondary malignancies (12 sources) Secondary malignant neoplasm of bone; Translations: [Secondary malignant neoplasm of bone] Onset: 05-04-2023 05-04-2023 Chronic Secondary malignancies (1 source) Secondary malignant neoplasm of bone; Translations: [Metastasis to bone (HCC)] Onset: 05-04-2023 Chronic Past or Other Problems Problem Classification Problem Date Documented Da te Episodic/Chronic Cancer of breast (20 sources) History of malignant neoplasm of breast; Translations: [Personal history of malignant neoplasm of breast] Onset: 08-28-2013 08-28-2013 Episodic Other aftercare (20 sources) Long-term current use of anticoagulant; Translations: [FDC (current) use of anticoagulants] Onset: 10-24-2019 10-24-2019 Episodic Other diseases of bladder and urethra (20 sources) Other specified disorders of urethra; Translations: [Urethrocele] Onset: 07-16-2009 07-16-2009 Episodic Other non-traumatic joint disorders (20 sources) Joint pain; Translations: [Pain in unspecified joint] Onset: 07-30-2011 07-30-2011 Episodic Residual codes; unclassified (20 sources) Other specified health status; Translations: [Other drug allergy] Onset: 06-02-2017 06-02-2017 Episodic Residual codes; unclassified (2 sources) Estrogen receptor positive status [ER+]; Translations: [Malignant neoplasm of upper-outer quadrant of left breast in female, estrogen receptor positive (HCC) (HCC)] Onset: 09-13-2017 Episodic Results Test Name Value Interpretation Reference Range Facil ity Vital Signs Date Time Vital Sign Value Performing Clinician Jeff kulkarni 05-06-2023 11:26-0500 Body temperature 98.49 [degF] Treatment Wstr Work Phone: [facility] 05-06-2023 11:26-0500 Diastolic blood pressure 78 mm[Hg] Treatment Wstr Work Phone: [facility] 05-06-2023 11:26-0500 Heart rate 108 /min Treatment Wstr Work Phone: [facility] 05-06-2023 11:26-0500 Systolic blood pressure 132 mm[Hg] Treatment Wstr Work Phone: [facility] 05-05-2023 10:48-0500 Body temperature 98.1 [degF] Treatment Wstr Work Phone: [facility] 05-05-2023 10:48-0500 Diastolic blood pressure 78 mm[Hg] Treatment Wstr Work Phone: [facility] 05-05-2023 10:48-0500 Heart rate 94 /min Treatment Wstr Work Phone: [facility] 05-05-2023 10:48-0500 Respiratory rate 18 /min Treatment Wstr Work Phone: [facility] 05-05-2023 10:48-0500 SaO2% (BldA) [Mass fraction] 97 % Treatment Wstr Work Phone: [facility] 05-05-2023 10:48-0500 Systolic blood pressure 160 mm[Hg] Treatment Wstr Work Phone: [facility] 05-04-2023 10:40-0500 Body height 156 cm Efrain Masci DO Work Phone: [facility] 05-04-2023 10:40-0500 Body temperature 99.9 [degF] Efrain Masci DO Work Phone: [facility] 05-04-2023 10:40-0500 Body weight 80.74 kg Efrain Masci DO Work Phone: [facility] 05-04-2023 10:40-0500 Diastolic blood pressure 83 mm[Hg] Efrain Masci DO Work Phone: [facility] 05-04-2023 10:40-0500 Heart rate 117 /min Efrain Masci DO Work Phone: [facility] 05-04-2023 10:40-0500 SaO2% (BldA) [Mass fraction] 97 % Efrain Dowelli DO Work Phone: [facility] 05-04-2023 10:40-0500 Systolic blood pressure 135 mm[Hg] Efrain Dowelli DO Work Phone: [facility] 04-27-2023 10:02-0500 Body weight 81.83 kg Codie Haagen ORE TRIMMER.ORACLE FUSION CONSULTANT Work Phone: [facility] 04-27-2023 10:02-0500 Diastolic blood pressure 84 mm[Hg] Codie Haagen ORE TRIMMER.ORACLE FUSION CONSULTANT Work Phone: [facility] 04-27-2023 10:02-0500 Heart rate 106 /min Codie Haagen ORE TRIMMER.ORACLE FUSION CONSULTANT Work Phone: [facility] 04-27-2023 10:02-0500 Respiratory rate 16 /min Codie Haagen ORE TRIMMER.ORACLE FUSION CONSULTANT Work Phone: [facility] 04-27-2023 10:02-0500 SaO2% (BldA) [Mass fraction] 95 % Codie Haagen ORE TRIMMER.ORACLE FUSION CONSULTANT Work Phone: [facility] 04-27-2023 10:02-0500 Systolic blood pressure 138 mm[Hg] Codie Haagen ORE TRIMMER.ORACLE FUSION CONSULTANT Work Phone: [facility] 03-29-2023 13:26-0500 Body weight 84.82 kg Penelope Carpenter ORE TRIMMER.ORACLE FUSION CONSULTANT Work Phone: [facility] 03-29-2023 13:26-0500 Diastolic blood pressure 76 mm[Hg] Penelope Carpenter ORE TRIMMER.ORACLE FUSION CONSULTANT Work Phone: [facility] 03-29-2023 13:26-0500 Heart rate 88 /min Penelope Carpenter ORE TRIMMER.ORACLE FUSION CONSULTANT Work Phone: [facility] 03-29-2023 13:26-0500 Respiratory rate 16 /min Penelope Carpenter ORE TRIMMER.ORACLE FUSION CONSULTANT Work Phone: [facility] 03-29-2023 13:26-0500 Systolic blood pressure 138 mm[Hg] Penelope Carpenter ORE TRIMMER.ORACLE FUSION CONSULTANT Work Phone: [facility] 02-26-2023 10:19-0400 Body weight 85.73 kg Keturah Elliott ORE TRIMMER.ORACLE FUSION CONSULTANT Work Phone: [facility] 02-26-2023 10:19-0400 Diastolic blood pressure 90 mm[Hg] Keturah Elliott ORE TRIMMER.ORACLE FUSION CONSULTANT Work Phone: [facility] 02-26-2023 10:19-0400 Heart rate 104 /min Keturah Elliott ORE TRIMMER.ORACLE FUSION CONSULTANT Work Phone: [facility] 02-26-2023 10:19-0400 Respiratory rate 16 /min Keturah Elliott ORE TRIMMER.ORACLE FUSION CONSULTANT Work Phone: [facility] 02-26-2023 10:19-0400 Systolic blood pressure 144 mm[Hg] Keturah Elliott ORE TRIMMER.ORACLE FUSION CONSULTANT Work Phone: [facility] 08-24-2022 09:13-0400 Diastolic blood pressure 87 mm[Hg] Codie Bonner ORE TRIMMER.ORACLE FUSION CONSULTANT Work Phone: [facility] 08-24-2022 09:13-0400 Heart rate 83 /min Codie Cruzagen ORE TRIMMER.ORACLE FUSION CONSULTANT Work Phone: [facility] 08-24-2022 09:13-0400 Systolic blood pressure 151 mm[Hg] Codie Bonner ORE TRIMMER.ORACLE FUSION CONSULTANT Work Phone: [facility] 08-24-2022 08:41-0400 Respiratory rate 18 /min Codie Bonner ORE TRIMMER.ORACLE FUSION CONSULTANT Work Phone: [facility] 08-24-2022 08:41-0400 SaO2% (BldA) [Mass fraction] 96 % Codie Bonner ORE TRIMMER.ORACLE FUSION CONSULTANT Work Phone: [facility] Encounters Encounter Date Encounter Type Care Provider Facility Start: 05-14-2023 Documentation procedure Mammog erick Coordinator [facility] Start: 05-14-2023 Letter encounter Mammography Coordinator [facility] Department Start: 05-14-2023 End: 05-15-2023 ambulatory [facility] Facility:[facility] Start: 05-13-2023 End: 05-13-2023 ambulatory LARS JANETTE Facility:[facility] Start: 05-07-2023 Telephone encounter Efrain torres DO Work Phone: Hematology/Oncology Procedures Date Procedure Procedure Detail Performing Clinician Start: 05-03-2023 Ct abdomen & pelvis w/contrast material Codie Bonner ORE TRIMMER.ORACLE FUSION CONSULTANT Work Phone: Start: 05-03-2023 Ct thorax w/contrast material Codie Bonner ORE TRIMMER.ORACLE FUSION CONSULTANT Work Phone: Start: 04-27-2023 Ecg routine ecg w/le ast 12 lds i&r only [facility] Provider Start: 12-08-2021 Screening mammograph y bi 2-view breast inc cad Jamilah Bates ORE TRIMMER.ORACLE FUSION CONSULTANT Work Phone: Start: 11-25-2017 Adult depression scr eening assessment Hood Lopez ORE TRIMMER.ORACLE FUSION CONSULTANT, DNP Work Phone: Plan of Treatment Date Care Activity Detail Author Start: 05-03-2024 Annual PCP Team Technology Officer francois Disease Visit Annual PCP Team Chronic Disease Visit [facility] Start: 04-27-2024 Annual PCP Team Technology Officer francois Disease Visit Annual PCP Team Chronic Disease Visit [facility] Start: 03-29-2024 Annual PCP Team Technology Officer francois Disease Visit Annual PCP Team Chronic Disease Visit [facility] Start: 02-27-2024 Annual PCP Team Technology Officer francois Disease Visit Annual PCP Team Chronic Disease Visit [facility] Start: 10-27-2023 Hemoglobin A1c measurement HbA1C [facility] Start: 10-27-2023 Hemoglobin A1c/Hemoglobin.total in Blood HbA1C [facility] Start: 08-25-2023 ANNUAL PCP TEAM PRE BILLING CLINICIAN FRANCOIS DISEASE VISIT ANNUAL PCP TEAM CHRONIC DISEASE VISIT [facility] Start: 08-21-2023 Hepatitis B screening URINE ALBUMIN:CREATININE RATIO [facility] Start: 08-21-2023 Hepatitis B surface antibody level LDL CHOLESTEROL [facility] Start: 05-04-2023 End: 08-03-2023 Cancer Ag 15-3 [Units/volume] in Serum or Plasma [facility] Work Phone: Immunizations Immunization Date Immunization Notes Care Provider Fa cility 03-23-2022 influenza, high dose seasonal, preservative-free Lasr Powers MD Work Phone: [facility] 03-23-2022 influenza virus vacc ine, unspecified formulation Denise Montes MA [facility] 02-18-2021 influenza, high-dose , quadrivalent vaccine (FLUZONE HIGH DOSE QUADRIVALENT) Lars Powers MD Work Phone: [facility] 07-24-2020 COVID-19 vaccine, fu ll dose (MODERNA) Hood Lopez APRN.ORACLE FUSION CONSULTANT, DNP Work Phone: [facility] 03-11-2020 influenza, high dose seasonal, preservative-free Hood Lopez APRN.ORACLE FUSION CONSULTANT, DNP Work Phone: [facility] 03-11-2020 influenza, high-dose , quadrivalent vaccine (FLUZONE HIGH DOSE QUADRIVALENT) Lars Powers MD Work Phone: [facility] 03-22-2019 influenza, seasonal, injectable, preservative free Lars Powers MD Work Phone: [facility] 02-13-2019 influenza, high dose seasonal, preservative-free Hood Lopez APRN.ORACLE FUSION CONSULTANT, DNP Work Phone: [facility] 03-28-2018 influenza, high dose seasonal, preservative-free Lars Powers MD Work Phone: [facility] 03-03-2017 influenza, high dose seasonal, preservative-free Lars Powers MD Work Phone: [facility] 08-07-2016 pneumococcal polysaccharide vaccine, 23 valent Hood Lopez APRN.ORACLE FUSION CONSULTANT, DNP Work Phone: [facility] 04-05-2015 pneumococcal conjuga te vaccine, 13 valent Hood Lopez APRN.ORACLE FUSION CONSULTANT, DNP Work Phone: [facility] 03-09-2008 influenza virus vacc ine, unspecified formulation Hood Lopez APRN.ORACLE FUSION CONSULTANT, DNP Work Phone: [facility] 03-30-2007 influenza virus vacc ine, unspecified formulation Hood Lopez APRN.ORACLE FUSION CONSULTANT, DNP Work Phone: [facility] Work Phone: 04-19-2006 influenza virus vacc ine, unspecified formulation Hood Lopez APRN.[facility] Work Phone: [facility] 11-05-2005 diphtheria, tetanus toxoids and acellular pertussis vaccine Hood Lopez APRN.[facility] Work Phone: [facility] 04-02-2005 influenza virus vacc ine, unspecified formulation Hood Lopez APRN.[facility] Work Phone: [facility] Work Phone: 05-15-2003 pneumococcal polysaccharide vaccine, 23 valent Hood Lopez APRN.[facility] Work Phone: [facility] Work Phone: Payers Date Payer Category Payer Private Health Insurance [employer] PPO [id number] 2013-Present [phone] [address] [place] [address] PPO [id number] 2013 Private Health Insurance [employer] PPO [id number] 2013-Present [phone] [address] [place] [address] PPO [id number] 2013 Private Health Insurance [id number] 2008 Medicare MEDICARE MEDICAR E A AND B [id number] 2008-Present [phone] [address] [address] [place] [address] Medicare [id number] 2008 Medicare MEDICARE MEDICAR E A AND B [id number] 2008-Present [phone] [place] [address] Medicare [id number] 2008 Medicare [id number] Social History Date Type Detail Facility Start: 02-12-2011 Tobacco smoking stat us NHIS Never smoked tobacco [facility] Start: 04-28-2021 End: 05-04-2023 Alcohol intake Current non-drinker of alcohol (finding) [facility] Start: 06-07-2020 History SDOH Alcohol Frequency 1 [facility] Start: 06-07-2020 History SDOH Social Connections Phone 4 [facility] Start: 06-07-2020 History SDOH Social Connections [employer] 3 [facility] Start: 06-07-2020 History SDOH Stress 2 [facility] Start: 06-07-2020 History SDOH Financial 5 [facility] Start: 06-07-2020 Education 12 [facility] Start: 1945 Sex Assigned At Female C [facility] Start: 11-28-2021 End: 12-08-2021 Exposure to SARS-CoV-2 (event) Not sure [facility] Start: 02-12-2011 Tobacco use and exposure Smoke less tobacco non-user [facility] Start: 06-07-2020 End: 02-26-2023 History of Social function [facility] Start: 06-07-2020 End: 02-26-2023 Social connection and isolation panel [facility] Frequency of Social Gatherings with Friends and Family Not on file [facility] Are you now , , , , never or living with a partner? [facility] How often to you hav e a drink containing alcohol? Never [facility] Do you feel stress - tense, restless, nervous, or anxious, or unable to sleep at night because your mind is troubled all the time - these days [OSQ] Only a little [facility] The food that (I/we) bought just didn't last, and (I/we) didn't have money to get more. Never true [facility] In the past 12 month s, was there a time when you were not able to pay the mortgage or rent on time? No [facility] Start: 12-11-2019 Gender identity Identifies as female gender (finding) [facility] Clinical Notes 10-24-2019 to 05-14-2023 Letter - Coordinator, Mammography - 05/14/2023 8:06 AM ESTTelephone Encounter - Christie CallahanPONCHO - 05/10/2023 1:05 PM ESTTelephone Encounter - Suze WhittPONCHO - 05/10/2023 12:43 PM EST Note Date & Type Note Facility 05-14-2023 Miscellaneous Notes May 14, 2023 PID: [id number] Yon Rubio [address] [place] [address] Dear Ms. Rubio, We are pleased to inform you that the results of your recent breast imaging exam on 05/13/2023 are normal. Early detection of cancer is very important. We also understand recommendations regarding breast cancer screening are controversial. Please discuss with your primary care provider which strategy is best for you and whether a mammogram is right for you. Your imaging studies and report will be kept on file at [facility] as part of your permanent medical record and are available for your continuing care. Thank you for allowing us to help in meeting your health care needs. Sincerely, Dr. Truong Interpreting Radiologist [facility] (Normal over 40) documented in this encounter [facility] 05-13-2023 Note HNO ID: [id number] Author: Rosie Sifuentes Mammo Tech Service: ? Author Type: Automatic Spooler Operator Type: Progress Notes Filed: 05/13/2023 10:49 AM Note Text: Radiology Service Progress Note PATIENT NAME: Yon Rubio DATE OF SERVICE: May 13, 2023 TIME: 10:19 AM PATIENT IDENTITY VERIFICATION COMPLETED USING TWO (2) IDENTIFIERS: Name and Date of confirmed by patient verbally. FALL SCREENING: Has the patient had 2 falls in the last year or 1 fall with injury or currently using an Ambulatory Assistive Device (Walker, Cane, Wheelchair, Crutches, etc.)? Yes, Patient High Risk for Falls What interventions were put in place to prevent falls during this visit? Increased Observations by Caregivers PATIENT GENDER DATA: Female. status: : No status: NO. PATIENT RELEVANT IMPLANT DATA REVIEWED: Not Applicable RADIOLOGY DEPARTMENT: Mammography PERIPHERAL IV DATA: Not applicable SIGNED BY: Rosie Sifuentes [employer] May 13, 2023 10:19 AM [facility] 05-10-2023 Miscellaneous Notes Spoke with pts. Son informed we do not see anthing mentioned about a BMBX. Son then questioned how they would find out about the liver Biopsy results. Informed we would contact them to discuss the results as soon as we get them. Son voiced understating. Christie Callahan LPN From OV note 05/04/2023- Plan: -Biopsy liver mass. -Zometa with hydration today. -MRI brain. -MRI c-spine. -Palliative care referral. Message left on patient's son's VM asking for a return call. Liver biopsy, MRI's and Zometa completed. Suze Whitt LPN Son called stating that patient is at [facility] today for liver biopsy. He stated during last meeting that a bone marrow biopsy or some type of bone test had been mentioned and is asking if that was something that needed scheduled. Please advise. documented in this encounter [facility] 05-06-2023 Note HNO ID: [id number] Author: Jessica Thomason RT(R) Service: ? Author Type: Technologist Type: Progress Notes Filed: 05/06/2023 2:29 PM Note Text: Radiology Service Progress Note PATIENT NAME: Yon Rubio DATE OF SERVICE: May 06, 2023 TIME: 2:28 PM PATIENT IDENTITY VERIFICATION COMPLETED USING TWO (2) IDENTIFIERS: Name and Date of confirmed by patient verbally. FALL SCREENING: Has the patient had 2 falls in the last year or 1 fall with injury or currently using an Ambulatory Assistive Device (Walker, Cane, Wheelchair, Crutches, etc.)? Yes, Patient High Risk for Falls What interventions were put in place to prevent falls during this visit? Instructed Patient to Call for Help if Needed, Offered Assistance with Transfers/Clothing, Instructed Patient to Remain Seated (Not on Exam Table) Until Exam, and Increased Observations by Caregivers PATIENT GENDER DATA: Female. status: : No status: NO. PATIENT RELEVANT IMPLANT DATA REVIEWED: Yes RADIOLOGY DEPARTMENT: MR; Exam(s) Completed: Head: Routine Brain Spine: Cervical spine PERIPHERAL IV DATA: Site assessment: Clean,Dry and Intact, Site disposition Discontinued SIGNED BY: RT Frida(R) May 06, 2023 2:28 PM [facility] 05-05-2023 Note HNO ID: [id number] Author: Abhijeet Mendieta RN Service: ? Author Type: Registered Nurse Type: Progress Notes Filed: 05/05/2023 11:38 AM Note Text: No hydration needed today per Dr. Crawford. [facility] 05-05-2023 History of Present illness Narrative No hydration needed today per Dr. Crawford. documented in this encounter [facility] 05-04-2023 Miscellaneous Notes Order printed. Efrain Crawford DO Please file Rx if appropriate. Suze Whitt LPN Patient's son is here with patient today and asking if it is possible to get a prescription for a lift chair. Please advise. Kelly Brown documented in this encounter [facility] 05-04-2023 Note HNO ID: [id number] Author: Efrain Crawford DO Service: ? Author Type: Physician Type: Progress Notes Filed: 05/04/2023 1:25 PM Note Text: HPI: Patient is a 77 year-old female who received adjuvant chemotherapy for a T2(m) (two foci each measuring 2.5 cm) N1 (1/12 LNs positive--1.3 cm prema disease with extracapsular extension) MX ER/CT +/+ and HER2 3+ RIGHT breast cancer. Had breast MRI post op to assess for residual disease--the study was negative. S/P 4 cycles of AC followed by paclitaxel on a weekly schedule x12 with trastuzumab. Completed right breast radiation 09/23/2007. Completed q 3 week trastuzumab 04/2008. It was held 10/25 due to low EF, repeat MUGA 4 weeks later showed normal EF. Never had symptoms suggestive of CHF. Was on anastrozole, but changed to tamoxifen 09/2009 due to worsening knee pain. Then changed to letrozole. Hadn't been taking letrozole consistently. I forget to a take it. Some weeks I forget altogether. Pt. stopped femara fall 2011--pt not sure of the date. She stated that she didn't feel like taking her pills. She denied s/e from femara. ------- Then had new left sided primary breast cancer. Core needle biopsy on 07/01/2017. Pathology: Left breast, ultrasound-guided needle core biopsy: Invasive lobular carcinoma, nuclear grade 2 (1 cm in greatest length). ER (clone 6F11) >95%, strong CT (clone 16/1E2) >95%, strong Her-2Neu (clone CB11) 0 Subsequently underwent left-sided lumpectomy with sentinel axillary lymph node biopsy on 07/15/2017. Pathology: FROZEN SECTION DIAGNOSIS A. Left axillary sentinel lymph node tissue, biopsy: Two out of two lymph nodes, negative for metastatic carcinoma. B. Additional left axillary sentinel lymph node tissue, biopsy: Two out of two lymph nodes, negative for metastatic carcinoma. C. Deep left axillary sentinel lymph node tissue, biopsy: One lymph node positive for metastatic carcinoma. MICROSCOPIC DIAGNOSIS A. Left axillary sentinel lymph node, biopsy: Two out of two lymph nodes, negative for metastatic carcinoma. See comment. B. Additional left axillary sentinel lymph node, biopsy: One out of two lymph nodes, positive for micrometastatic carcinoma. See comment. C. Deep left axillary sentinel lymph node tissue, biopsy: One lymph node, positive for metastatic carcinoma. See comment. D. Left breast, lumpectomy with needle localization: Invasive lobular carcinoma. The tumor is focally present at the anterior margin and the tumor is 0.1 cm away from the medial margin and <0.1 cm away from the superior margin. See cancer summary below. INVASIVE BREAST CANCER SUMMARY: Specimen - partial breast Procedure - excision with wire-guided localization Lymph node sampling - sentinel lymph nodes Specimen integrity - single intact specimen Specimen size - 14 x 10 x 5 cm Specimen laterality - left Tumor site - not specified Tumor size - 6 x 4 x 2.5 cm Tumor focality - single focus of invasive carcinoma Macroscopic and Microscopic extent of tumor: Skin - invasive carcinoma does not invade into the dermis or epidermis. Nipple - not applicable Skeletal muscle - no skeletal muscle present Ductal carcinoma in situ (DCIS) - not present Lobular carcinoma in situ (LCIS) - not identified Histologic type of invasive carcinoma - invasive lobular carcinoma Histologic Grade (Fallon grade): Glandular/tubular differentiation - score 3 Nuclear pleomorphism - score 2 Mitotic count - score 1 Overall grade - 2 (score of 6) Margins: Margins focally involved by invasive carcinoma. Invasive lobular carcinoma is present focally at the anterior margin. The invasive lobular carcinoma focally is present <0.1 cm away from the superior margin. Invasive lobular carcinoma is 0.1 cm away from the medial margin. Treatment effect - effect of presurgical (neoadjuvant) therapy - no known presurgical therapy. Lymph-Vascular invasion - not identified Dermal lymph-vascular invasion - not identified Lymph nodes: Number of sentinel lymph nodes examined - 5 Total number of lymph nodes examined (sentinel and nonsentinel) - 5 Number of lymph nodes with macrometastases - 1 Number of lymph nodes with micrometastases - 1 Number of lymph nodes with isolated tumor cells - 0 Extranodal extension - present Method of evaluation of sentinel lymph nodes - H AND E, multiple levels and IHC (specimen A AND B). Additional pathologic findings - fibrocystic changes and intraductal hyperplasia without atypia. Ancillary studies - previously performed on section of tumor ([id number] / [id number]). ER - positive (>95%, strong) CT - positive (>95%, strong) Her2 roel - 0 Her2 by dual DEMI - not performed Microcalcifications - present in invasive carcinoma. Clinical history - Please make refer (more content not included)... [facility] 05-04-2023 Note HNO ID: [id number] Author: Efrain Crawford, DO Service: ? Author Type: Physician Type: Progress Notes Filed: 05/04/2023 1:25 PM Note Text: Encounter changed to Dr. Crawford. Efrain Crawford DO [facility] 05-04-2023 History of Present illness Narrative HPI: Patient is a 77 year-old female who received adjuvant chemotherapy for a T2(m) (two foci each measuring 2.5 cm) N1 (06/04 LNs positive--1.3 cm prema disease with extracapsular extension) MX ER/CT +/+ and HER2 3+ RIGHT breast cancer. Had breast MRI post op to assess for residual disease--the study was negative. S/P 4 cycles of AC followed by paclitaxel on a weekly schedule x12 with trastuzumab. Completed right breast radiation 09/23/2007. Completed q 3 week trastuzumab 04/2008. It was held 10/25 due to low EF, repeat MUGA 4 weeks later showed normal EF. Never had symptoms suggestive of CHF. Was on anastrozole, but changed to tamoxifen 09/2009 due to worsening knee pain. Then changed to letrozole. Hadn't been taking letrozole consistently. I forget to a take it. Some weeks I forget altogether. Pt. stopped femara fall 2011--pt not sure of the date. She stated that she didn't feel like taking her pills. She denied s/e from femara. - Then had new left sided primary breast cancer. Core needle biopsy on 07/01/2017. Pathology: Left breast, ultrasound-guided needle core biopsy: Invasive lobular carcinoma, nuclear grade 2 (1 cm in greatest length). ER (clone 6F11) >95%, strong CT (clone 16/1E2) >95%, strong Her-2Neu (clone CB11) 0 Subsequently underwent left-sided lumpectomy with sentinel axillary lymph node biopsy on 07/15/2017. Pathology: FROZEN SECTION DIAGNOSIS A. Left axillary sentinel lymph node tissue, biopsy: Two out of two lymph nodes, negative for metastatic carcinoma. B. Additional left axillary sentinel lymph node tissue, biopsy: Two out of two lymph nodes, negative for metastatic carcinoma. C. Deep left axillary sentinel lymph node tissue, biopsy: One lymph node positive for metastatic carcinoma. MICROSCOPIC DIAGNOSIS A. Left axillary sentinel lymph node, biopsy: Two out of two lymph nodes, negative for metastatic carcinoma. See comment. B. Additional left axillary sentinel lymph node, biopsy: One out of two lymph nodes, positive for micrometastatic carcinoma. See comment. C. Deep left axillary sentinel lymph node tissue, biopsy: One lymph node, positive for metastatic carcinoma. See comment. D. Left breast, lumpectomy with needle localization: Invasive lobular carcinoma. The tumor is focally present at the anterior margin and the tumor is 0.1 cm away from the medial margin and <0.1 cm away from the superior margin. See cancer summary below. INVASIVE BREAST CANCER SUMMARY: Specimen - partial breast Procedure - excision with wire-guided localization Lymph node sampling - sentinel lymph nodes Specimen integrity - single intact specimen Specimen size - 14 x 10 x 5 cm Specimen laterality - left Tumor site - not specified Tumor size - 6 x 4 x 2.5 cm Tumor focality - single focus of invasive carcinoma Macroscopic and Microscopic extent of tumor: Skin - invasive carcinoma does not invade into the dermis or epidermis. Nipple - not applicable Skeletal muscle - no skeletal muscle present Ductal carcinoma in situ (DCIS) - not present Lobular carcinoma in situ (LCIS) - not identified Histologic type of invasive carcinoma - invasive lobular carcinoma Histologic Grade (Christo grade): Glandular/tubular differentiation - score 3 Nuclear pleomorphism - score 2 Mitotic count - score 1 Overall grade - 2 (score of 6) Margins: Margins focally involved by invasive carcinoma. Invasive lobular carcinoma is present focally at the anterior margin. The invasive lobular carcinoma focally is present <0.1 cm away from the superior margin. Invasive lobular carcinoma is 0.1 cm away from the medial margin. Treatment effect - effect of presurgical (neoadjuvant) therapy - no known presurgical therapy. Lymph-Vascular invasion - not identified Dermal lymph-vascular invasion - not identified Lymph nodes: Number of sentinel lymph nodes examined - 5 Total number of lymph nodes examined (sentinel and nonsentinel) - 5 Number of lymph nodes with macrometastases - 1 Number of lymph nodes with micrometastases - 1 Number of lymph nodes with isolated tumor cells - 0 Extranodal extension - present Method of evaluation of sentinel lymph nodes - H & E, multiple levels and IHC (specimen A & B). Additional pathologic findings - fibrocystic changes and intraductal hyperplasia without atypia. Ancillary studies - previously performed on section of tumor ([id number] / [id number]). ER - positive (>95%, strong) CT - positive (>95%, strong) Her2 roel - 0 Her2 by dual DEMI - not performed Microcalcifications - present in invasive carcinoma. Clinical history - Please make reference to previous specimen ([id number]) left breast, ultrasound-guided needle core biopsy with diagnosis of invasive lobular carcinoma. PATHOLOGIC STAGE: pT3 pN1a(sn) Mx Had resection of margins on 07/29/2017. Pathology: MICROSCOPIC DIAGNOSIS A. Left breast, inferior medial margin: A few foci of invasive lobular carcinoma. Changes consistent with previous biopsy site. See comment. Focal intraductal hyperplasia without atypia. B. Left breast, medial superior margin: A few foci of invasive lobular carcinoma. Changes consistent with previous biopsy site. Focal intraductal hyperplasia without atypia. A fibrous nodule with calcification. See comment. C. Old scar, anterior left breast: Skin with dermal fibrosis consistent with scar. Negative for carcinoma. D. Most medial margin, left breast: Negative for carcinoma. Changes consistent with previous biopsy site. Intraductal hyperplasia without atypia. COMMENT A. The specimen is not oriented. A few foci of invasive lobular carcinoma is present at one resection margin presumed to be old resection margin. The largest focus of carcinoma measures 0.4 cm in greatest dimension. The presumed new margin is free of tumor and 0.6 cm away from the tumor. Skeletal muscle is also noted in the specimen and free of tumor. B. The largest focus of invasive carcinoma measures 0.5 cm in greatest dimension. A focus of invasive carcinoma is also present at one resection margin presumed to be old resection margin. The presumed new resection margin is 0.4 cm away from the tumor. A & B. Immunohistochemistry ([id number]) supports the above diagnosis. Previous therapy: 1) Adjuvant radiation completed 11/09/2017. 2) Aromasin. Stopped due to mood swings. 3) Letrozole. Stopped 02/2018 due to mood swings. Current therapy: 1) Anastrozole. In 2018---I reviewed the results of the Oncotype test. Recurrence score was 15. This was suggestive of five-year rate of distant recurrence 11% with tamoxifen alone and 12% with tamoxifen and chemotherapy. Based on these results I did not recommend adjuvant chemotherapy. I explained the rationale for aromatase inhibitor therapy as best I possibly could to the patient, her and son who impressed upon her that the medication is to reduce serum levels of estrogen thus taking the drive away from breast cancer cells. Patient at the end of this discussion still seemed a little bit skeptical but probably she would do her best to be much more adherent to aromatase inhibitor therapy. Presented to the ER at [facility] on 10/13/2019 with complaints of worsening left-sided chest pain. She had admitted to a several month history of chest pain that had worsened and then acutely so in the week prior to presentation. It was associated with shortness of breath. CTA 10/13/2019: Relatively extensive bilateral pulmonary emboli including saddle embolus. Pulmonary emboli are seen in both distal right and left main pulmonary arteries, extending into both descending pulmonary arteries and segmental vessels to the basal segments, and pulmonary emboli are seen extending into the anterior segment of both upper lobes. No gross right ventricular strain. Normal thoracic aorta and visualized great vessels. There is no demonstrated aortic dissection. Normal heart and pericardium. Normal mediastinum. Normal hilar regions. Normal visualized trachea and bronchi. The lungs are hyper expanded, with flattening of the hemidiaphragms. Normal pulmonary parenchyma. Normal pleura. There are no pleural effusions. Normal chest wall structures. There are degenerative changes of thoracic spine. Normal visualized upper abdomen. IMPRESSION: Widespread bilateral pulmonary emboli including saddle embolus extending into both the right and left main pulmonary arteries. There are findings consistent with COPD. There is no evidence of acute chest disease Echocardiogram 10/14/2019: Normal LV size. Left ventricular systolic function is normal. The estimated ejection fraction is 65 %. Stage 1 diastolic dysfunction. Contrast injection was performed. Pulmonary artery pressure 33 mmHg. Normal RV size and systolic function. Initially treated with IV unfractionated heparin and then transitioned Eliquis at the time of discharge. Presents for ongoing oncologic management. Interim history: Recently seen by her primary care team for complaints of constipation, weakness, loss of appetite and insomnia that started in February. CT scans of the chest, abdomen pelvis demonstrated interval development of diffuse mixed lytic and sclerotic osseous metastatic disease. There were new hepatic lesions compatible with hepatic metastases. No evidence of metastatic disease in the chest with the exception of sclerotic and lytic bony lesions. There was an incidental finding of retained catheter in the left brachiocephalic vein extending to the SVC. Developed weakness, loss of appetite, fatigue--not sleeping well at night--feels better after 20 min nap and constipation. Left neck radiating to vertex head. Can't turn head due to pain. says she has been taking anastrozole. PMH, medications and allergies personally reviewed by me today. Any changes documented in appropriate section. ROS: Constitutional: Denies episodes of fever and night sweats. Normal appetite. Neuro: Denies CRUZ, vertigo, dizziness and imbalance. In the evening, she feels tight in the toes and feet. HEENT: No recent change in voice, vision or hearing. Resp: Denies cough, wheeze and hemoptysis. CVS: Denies exertional chest pain, PND, orthopnea. GI: Denies dysgeusia. Denies symptoms of stomatitis. Denies dysphagia and odynophagia. Denies reflux, n/v, change in bowel habits and abdominal pain. : Denies dysuria or gross hematuria. Endo: Denies hot flashes. Denies polyuria and polydipsia. Denies heat and cold intolerance. Musculoskeletal: Denies bone, back and muscular pain. Chronic knee pain. Derm: Denies rash. Denies jaundice and diffuse pruritis. Heme: See above. Psych: Normal mood. PHYSICAL EXAM: Vitals: Blood pressure 135/83, pulse 117, temperature 37.7 C (99.9 F), height 156 cm (5' 1.42 ), weight 80.7 kg (178 lb), SpO2 97%. Fatigued and confused-appearing and in no acute distress. EYES: Sclerae are anicteric bilaterally. ENT: Oral mucosa is unremarkable. NECK: Supple. Tender posterior mid neck without mass. LYMPHATIC: There is no palpable cervical, supraclavicular or axillary adenopathy. RESPIRATORY: Inspiratory breath sounds are of normal intensity in all rolle. No rales, wheezes or rhonchi. CARDIOVASCULAR: Rhythm is regular. BREAST: and son celery wrapper. There are surgical defects in the upper outer quadrant of each breast. Nno discrete mass or nodule appreciated. ABDOMEN: The abdomen is nondistended. Extremities: No significant swelling. SKIN: No jaundice or rash. No petechiae. NEUROLOGIC: director hardware II-XII are grossly intact. No focal motor weakness but she is very weak on her legs and cannot walk unassisted. ASSESSMENT/PLAN: (C50.412, Z17.0) Malignant neoplasm of upper-outer quadrant of left breast in female, estrogen receptor positive (HCC) (primary encounter diagnosis) Assessment: -pT3 (6 cm; grade 2; no LVI) pN1a (sln) MX ER/CT positive, HER2 negative invasive lobular carcinoma the left breast. -Reviewed CT imaging. -Symptomatic hypercalcemia. -Mildly elevated hepatocellular enzymes with evidence of liver metastases. -Cervical spine appears to be the only symptomatic musculoskeletal site. -Had an in-depth discussion with the patient and her family today regarding the approach to diagnosis as well as management of hypercalcemia. -If proves to be metastatic recurrence of ER/CT positive, HER2 negative breast cancer then fulvestrant with CD4 6 inhibitor. Plan: -Biopsy liver mass. -Zometa with hydration today. -MRI brain. -MRI c-spine. -Palliative care referral. 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 -Given the extensive clot burden and now with active metastatic cancer, indefinite anticoagulation indicated. Plan: -Continue Eliquis 5 mg twice a day. -Okay to hold for 48 hours prior to biopsy. Portions of this documentation were copied and pasted from previous office visit notes in order to provide a cohesive continuity of the history. The note has been reviewed and edited and updated as necessary. I spent a total of 50 minutes on the date of the service which included preparing to see the patient, [id number] patient care, completing clinical documentation, obtaining and/or reviewing separately obtained history, performing a medically appropriate examination, counseling and educating the patient/family/caregiver, ordering medications, tests, or procedures, communicating with other HCPs (not separately reported), independently interpreting results (not separately reported), and communicating results to the patient/family/caregiver. Efrain Crawford DO Encounter changed to Dr. Crawford. Efrain Crawford DO documented in this encounter [facility] 05-04-2023 Miscellaneous Notes done Pt rescheduled. Here for labs and apt today. Pended. Please sign. Madyson Sky LPN documented in this encounter [facility] 05-03-2023 Note HNO ID: [id number] Author: Codie Bonner APRN.ORACLE FUSION CONSULTANT Service: ? Author Type: Nurse Practitioner Type: Progress Notes Filed: 05/10/2023 12:59 PM Note Text: Phone call to patient and spouse Narciso to discuss patient's CT results. Discussed concern for suspicious metastatic disease. Agreeable to oncology referral. Emotional support to patient/spouse. Questions answered. Patient gave permission to speak to son, Brenden, if he had further questions. Also discussed chest CT results and consistent with retained catheter in the left brachiocephalic vein extending to the SVC. Referral placed for general surgery re: this and + ifob. Codie Bonner APRN.CNP Total appointment time on phone with patient = 5-10 minutes [facility] 05-03-2023 Miscellaneous Notes Noted. Codie Bonner APRN.CNP Patient returned call and went over notes below. Patient can not remember if she still has the port, she can not remember when she completed her chemo. Per provider request, phoned pt to inquire about chemo port. Does pt still have a port or was it removed? Ziyad Simons documented in this encounter [facility] 05-03-2023 History of Present illness Narrative Phone call to patient and spouse Narciso to discuss patient's CT results. Discussed concern for suspicious metastatic disease. Agreeable to oncology referral. Emotional support to patient/spouse. Questions answered. Patient gave permission to speak to son, Brenden, if he had further questions. Also discussed chest CT results and consistent with retained catheter in the left brachiocephalic vein extending to the SVC. Referral placed for general surgery re: this and + ifob. Codie Bonner APRN.CNP documented in this encounter [facility] 05-03-2023 Note HNO ID: [id number] Author: Kera Burden RT(R) Service: ? Author Type: Automatic Spooler Operator Type: Progress Notes Filed: 05/03/2023 4:01 PM Note Text: Radiology Service Progress Note DATE OF SERVICE: May 03, 2023 TIME: 4:00 PM PATIENT IDENTITY VERIFICATION COMPLETED USING TWO (2) STANDARD IDENTIFIERS: Name and Date of confirmed by patient verbally. FALL SCREENING: Has the patient had 2 falls in the last year or 1 fall with injury or currently using an Ambulatory Assistive Device (Walker, Cane, Wheelchair, Crutches, etc.)? No PATIENT GENDER DATA: Female. status: : No status: NO. PATIENT RELEVANT IMPLANT DATA REVIEWED: Yes ALLERGIES: Reviewed and unchanged CONTRAST ALLERGY: NO. EXAM: CT -CONTRAST INDUCED NEPHROPATHY RISK FACTORS: Patient age > 60 years CREATININE: Creatinine Date Value Ref Range Status 04/29/2023 1.35 (H) 0.58 - 0.96 mg/dL Final 04/27/2023 1.43 (H) 0.58 - 0.96 mg/dL Final 08/20/2022 0.80 0.58 - 0.96 mg/dL Final Estimated Glomerular Filtration Rate Date Value Ref Range Status 04/29/2023 40 (L) >=60 mL/min/1.73m? Final Comment: Estimated Glomerular Filtration Rate (eGFR) is calculated using the 2020 CKD-EPI creatinine equation. This equation utilizes serum creatinine, sex, and age as parameters. The creatinine assay has traceable calibration to isotope dilution-mass spectrometry. Refer to KDIGO guidelines for clinical interpretation. In patients with unstable renal function, e.g. those with acute kidney injury, the eGFR may not accurately reflect actual GFR. eGFR- Date Value Ref Range Status 04/29/2021 >60 Final P.O.C.T. RESULTS: POC done: Yes, See Lab Tab May 03, 2023 TREATMENT: N/A PERIPHERAL IV DATA: Ambulatory: A peripheral IV was started in the Left antecubital site with a Angio cath: 22 gauge. RADIOLOGY DEPARTMENT: CT; Exam(s) Completed: Chest Abdomen Pelvis SIGNATURE: RT Shira(R) PATIENT NAME: Yon Rubio DATE: May 03, 2023 TIME: 4:00 PM [facility] 05-03-2023 History of Present illness Narrative Radiology Service Progress Note DATE OF SERVICE: May 03, 2023 TIME: 4:00 PM PATIENT IDENTITY VERIFICATION COMPLETED USING TWO (2) STANDARD IDENTIFIERS: Name and Date of confirmed by patient verbally. FALL SCREENING: Has the patient had 2 falls in the last year or 1 fall with injury or currently using an Ambulatory Assistive Device (Walker, Cane, Wheelchair, Crutches, etc.)? No PATIENT GENDER DATA: Female. status: : No status: NO. PATIENT RELEVANT IMPLANT DATA REVIEWED: Yes ALLERGIES: Reviewed and unchanged CONTRAST ALLERGY: NO. EXAM: CT -CONTRAST INDUCED NEPHROPATHY RISK FACTORS: Patient age > 60 years CREATININE: Creatinine Date Value Ref Range Status 04/29/2023 1.35 (H) 0.58 - 0.96 mg/dL Final 04/27/2023 1.43 (H) 0.58 - 0.96 mg/dL Final 08/20/2022 0.80 0.58 - 0.96 mg/dL Final Estimated Glomerular Filtration Rate Date Value Ref Range Status 04/29/2023 40 (L) >=60 mL/min/1.73m Final Comment: Estimated Glomerular Filtration Rate (eGFR) is calculated using the 2020 CKD-EPI creatinine equation. This equation utilizes serum creatinine, sex, and age as parameters. The creatinine assay has traceable calibration to isotope dilution-mass spectrometry. Refer to KDIGO guidelines for clinical interpretation. In patients with unstable renal function, e.g. those with acute kidney injury, the eGFR may not accurately reflect actual GFR. eGFR- Date Value Ref Range Status 04/29/2021 >60 Final P.O.C.T. RESULTS: POC done: Yes, See Lab Tab May 03, 2023 TREATMENT: N/A PERIPHERAL IV DATA: Ambulatory: A peripheral IV was started in the Left antecubital site with a Angio cath: 22 gauge. RADIOLOGY DEPARTMENT: CT; Exam(s) Completed: Chest Abdomen Pelvis SIGNATURE: RT Shira(R) PATIENT NAME: Yon Rubio DATE: May 03, 2023 TIME: 4:00 PM documented in this encounter [facility] 04-30-2023 Miscellaneous Notes Phone call to Yon to discuss labs and xray results and to explain more indepth re: findings. She is now scheduled for the CT scan on Wednesday. Message sent to gen surg re: chest xray and ifob results. Confirmed w/ patient that she is currently holding the HCTZ. Pt aware that we will likely be touching base with her again on Wednesday after imaging. documented in this encounter [facility] 04-29-2023 Note HNO ID: [id number] Author: Mariposa Aguilar RT(R) Service: Radiology Author Type: Technologist Type: Progress Notes Filed: 04/29/2023 10:24 AM Note Text: Radiology Service Progress Note PATIENT NAME: Yon Rubio DATE OF SERVICE: April 29, 2023 TIME: 10:09 AM PATIENT IDENTITY VERIFICATION COMPLETED USING TWO (2) IDENTIFIERS: Name and Date of confirmed by patient verbally. FALL SCREENING: Has the patient had 2 falls in the last year or 1 fall with injury or currently using an Ambulatory Assistive Device (Walker, Cane, Wheelchair, Crutches, etc.)? No PATIENT GENDER DATA: Female. status: : No status: NO. PATIENT RELEVANT IMPLANT DATA REVIEWED: Yes RADIOLOGY DEPARTMENT: General X-ray: Exam(s) Completed: Chest X-Ray PERIPHERAL IV DATA: Not applicable SIGNED BY: RT Yue(R) April 29, 2023 10:09 AM [facility] 04-27-2023 Note HNO ID: [id number] Author: Codie Bonner APRN.ORACLE FUSION CONSULTANT Service: ? Author Type: Nurse Practitioner Type: Progress Notes Filed: 04/27/2023 6:06 PM Note Text: This is a 77 year old female who presents today with: Patient presents with: Multiple Concerns: Constipation; weakness; loss of appetite; not sleeping well- since February HISTORY OF PRESENT ILLNESS: Yon Rubio is a 77 year old female. Patient presents with: Multiple Concerns: Constipation; weakness; loss of appetite; not sleeping well- since February Pt presents today with multiple complaints. Son and spouse arrived after appt started. Complaints include constipation, weakness, loss of appetite, and not sleeping well. Refers that she is concerned that her cancer is back. Hx of breast CA. Refers that she gets an intermittent pain in her chest. Right chest and sharp. Refers that it will last a couple of minutes. Refers that she has anxiety that brings it on . Refers she will get anxiety and feel like se can't catch her breath and gets fearful that she will pass out. Has never taken anything for anxiety in the past. Refers that she gets anxiety off and on, but unable to give more of a frequency. Not really interested in starting anything for anxiety. She has a hx of PE. She is chronically anticoagulated and compliant. No abnormal s/s of bleeding. O2 sat 95%. Refers that she has been having problems with constipation. Refers that she will get the urge, but will sit and nothing happens. She is passing gas. No n/v. Stools are hard and small. No abdominal pain. Not taking anything for constipation. Gets dry mouth. Refers that she isn't eating well. Certain foods gag her. Refers that she will usually have one meal daily (yesterday pork-chops and mashed potatoes). Weight is down 7 pounds in a month. + fatigue. Refers that she watches TV all night. Refers goes to bed around 11:00 or later -- and gets up around 7:00. Refers that she is doing 2-3 20 minute naps during the day. Drinking lots of fluids. PAST MEDICAL HISTORY: PAST MEDICAL HISTORY Diagnosis Date Abdominal pain, right upper quadrant Diarrhea Diarrhea Essential hypertension, benign Hypertension Impaired fasting glucose 08/26/2010 Irritable bowel syndrome Malignant neoplasm of breast (female), unspecified site 11/21/06 Malignant neoplasm of upper-outer quadrant of left breast in female, estrogen receptor positive (HCC) 07/29/2017 [facility] [place] Other and unspecified hyperlipidemia Unspecified hemorrhoids without mention of complication Hemorrhoids Urinary, incontinence, stress female 08/15/2013 Vitamin D deficiency 08/26/2010 PAST SURGICAL HISTORY Procedure Laterality Date BREAST LUMPECTOMY HX Left 07/15/2017 COLONOSCOPY FLX DX W/COLLJ SPEC WHEN PFRMD 12/16/01 Colonoscopy COLONOSCOPY W/BIOPSY SINGLE/MULTIPLE 11/18/06 Repeat in INJ RADIOACTIVE TRACER FOR ID OF SENTINEL NODE 12/06/06 INSJ TUNNELED CTR VAD W/SUBQ PORT AGE 5 YR/> 01/21/07 LEFT IJ MASTECTOMY,PARTIAL, WITH AXILLARY LYMPHADENECTOMY 12/06/06 RIGHT VAGINAL HYSTERECTOMY UTERUS 250 GM/< Hysterectomy, vaginal ALLERGIES Lipitor [Atorvastatin Calcium], Metformin, Wasulhs-Tvv-Cqa Reductase Inhibitors, and Vitamin D [Cholecalciferol (Vitamin D3)] MEDICATIONS Current Outpatient Medications Medication Sig triamcinolone acetonide (KENALOG) 0.5 % cream Apply 1 application to affected area two times a day. For rash/itching. Apply sparingly. Avoid face/skin fold. cyclobenzaprine (FLEXERIL) 5 mg tablet Take 1 tablet by mouth three times a day as needed for muscle spasm. anastrozole (ARIMIDEX) 1 mg tablet Take 1 tablet by mouth once daily. metoprolol succinate ER (TOPROL XL) 50 mg 24 hr tablet Take 1 tablet by mouth once daily. apixaban (ELIQUIS) 5 mg tab(s) Take 1 tablet by mouth twice daily. potassium chloride 20 mEq TbER Take 1 tablet by mouth once daily. losartan (COZAAR) 100 mg tablet Take 1 tablet by mouth once daily. hydroCHLOROthiazide 25 mg tablet Take 1 tablet by mouth once daily. cholecalciferol (VITAMIN D) 1,000 unit tab tablet Take 1,000 Units by mouth once daily. No current facility-administered medications for this visit. FAMILY HISTORY Problem Relation Age of Onset Heart Father Breast Cancer Mother Diabetes Brother other (fibromyalgia) Sister Social History Tobacco Use Smoking status: Never Smokeless tobacco: Never Vaping Use Vaping Use: Never used Substance Use Topics Alcohol use: No Drug use: No EXAM: BP 138/84 Pulse 106 Resp 16 SpO2 95% PHYSICAL EXAM: General Appearance: Well appearing, alert, in no acute distress, well-hydrated, well nourished.. Skin: Skin color, texture, turgor normal, no suspicious rashes or lesions. Head: Normocephalic, no masses, lesions, tenderness or abnormalities. Eyes: Anicteric sclera. Pupils are equally round and reactive to light. Extraocular movements are in (more content not included)... [facility] 04-27-2023 Instructions Codie Bonner APRN.CNP - 04/27/2023 11:12 AM EST Get labs. Get chest xray Schedule the CT. Schedule mammo Do the stool for occult blood. Start miralax daily. documented in this encounter [facility] 04-27-2023 History of Present illness Narrative This is a 77 year old female who presents today with: Patient presents with: Multiple Concerns: Constipation; weakness; loss of appetite; not sleeping well- since February HISTORY OF PRESENT ILLNESS: Yon Rubio is a 77 year old female. Patient presents with: Multiple Concerns: Constipation; weakness; loss of appetite; not sleeping well- since February Pt presents today with multiple complaints. Son and spouse arrived after appt started. Complaints include constipation, weakness, loss of appetite, and not sleeping well. Refers that she is concerned that her cancer is back. Hx of breast CA. Refers that she gets an intermittent pain in her chest. Right chest and sharp. Refers that it will last a couple of minutes. Refers that she has anxiety that brings it on . Refers she will get anxiety and feel like se can't catch her breath and gets fearful that she will pass out. Has never taken anything for anxiety in the past. Refers that she gets anxiety off and on, but unable to give more of a frequency. Not really interested in starting anything for anxiety. She has a hx of PE. She is chronically anticoagulated and compliant. No abnormal s/s of bleeding. O2 sat 95%. Refers that she has been having problems with constipation. Refers that she will get the urge, but will sit and nothing happens. She is passing gas. No n/v. Stools are hard and small. No abdominal pain. Not taking anything for constipation. Gets dry mouth. Refers that she isn't eating well. Certain foods gag her. Refers that she will usually have one meal daily (yesterday pork-chops and mashed potatoes). Weight is down 7 pounds in a month. + fatigue. Refers that she watches TV all night. Refers goes to bed around 11:00 or later -- and gets up around 7:00. Refers that she is doing 2-3 20 minute naps during the day. Drinking lots of fluids. PAST MEDICAL HISTORY: PAST MEDICAL HISTORY Diagnosis Date Abdominal pain, right upper quadrant Diarrhea Diarrhea Essential hypertension, benign Hypertension Impaired fasting glucose 08/26/2010 Irritable bowel syndrome Malignant neoplasm of breast (female), unspecified site 11/21/06 Malignant neoplasm of upper-outer quadrant of left breast in female, estrogen receptor positive (HCC) 07/29/2017 [facility] [place] Other and unspecified hyperlipidemia Unspecified hemorrhoids without mention of complication Hemorrhoids Urinary, incontinence, stress female 08/15/2013 Vitamin D deficiency 08/26/2010 PAST SURGICAL HISTORY Procedure Laterality Date BREAST LUMPECTOMY HX Left 07/15/2017 COLONOSCOPY FLX DX W/COLLJ SPEC WHEN PFRMD 12/16/01 Colonoscopy COLONOSCOPY W/BIOPSY SINGLE/MULTIPLE 11/18/06 Repeat in INJ RADIOACTIVE TRACER FOR ID OF SENTINEL NODE 12/06/06 INSJ TUNNELED CTR VAD W/SUBQ PORT AGE 5 YR/> 01/21/07 LEFT IJ MASTECTOMY,PARTIAL, WITH AXILLARY LYMPHADENECTOMY 12/06/06 RIGHT VAGINAL HYSTERECTOMY UTERUS 250 GM/< Hysterectomy, vaginal ALLERGIES Lipitor [Atorvastatin Calcium], Metformin, Tbxqezb-Vxb-Iti Reductase Inhibitors, and Vitamin D [Cholecalciferol (Vitamin D3)] MEDICATIONS Current Outpatient Medications Medication Sig triamcinolone acetonide (KENALOG) 0.5 % cream Apply 1 application to affected area two times a day. For rash/itching. Apply sparingly. Avoid face/skin fold. cyclobenzaprine (FLEXERIL) 5 mg tablet Take 1 tablet by mouth three times a day as needed for muscle spasm. anastrozole (ARIMIDEX) 1 mg tablet Take 1 tablet by mouth once daily. metoprolol succinate ER (TOPROL XL) 50 mg 24 hr tablet Take 1 tablet by mouth once daily. apixaban (ELIQUIS) 5 mg tab(s) Take 1 tablet by mouth twice daily. potassium chloride 20 mEq TbER Take 1 tablet by mouth once daily. losartan (COZAAR) 100 mg tablet Take 1 tablet by mouth once daily. hydroCHLOROthiazide 25 mg tablet Take 1 tablet by mouth once daily. cholecalciferol (VITAMIN D) 1,000 unit tab tablet Take 1,000 Units by mouth once daily. No current facility-administered medications for this visit. FAMILY HISTORY Problem Relation Age of Onset Heart Father Breast Cancer Mother Diabetes Brother other (fibromyalgia) Sister Social History Tobacco Use Smoking status: Never Smokeless tobacco: Never Vaping Use Vaping Use: Never used Substance Use Topics Alcohol use: No Drug use: No EXAM: BP 138/84 Pulse 106 Resp 16 SpO2 95% PHYSICAL EXAM: General Appearance: Well appearing, alert, in no acute distress, well-hydrated, well nourished.. Skin: Skin color, texture, turgor normal, no suspicious rashes or lesions. Head: Normocephalic, no masses, lesions, tenderness or abnormalities. Eyes: Anicteric sclera. Pupils are equally round and reactive to light. Extraocular movements are intact. . Ears: External ears normal, canals clear. Normal TMs bilaterally. Oropharynx: Lips, mucosa, and tongue normal, teeth and gums normal, oropharynx normal. Neck: Supple, no adenopathy; thyroid symmetric, normal size, no bruits. Lungs: Lungs clear to auscultation. No wheezing, rhonchi, rales.. Heart: RRR without murmur, gallop, or rubs. No ectopy. Abdomen: Abdomen soft, non-tender. Bowel sounds normal. No masses, organomegaly. Extremities: No deformities, edema, skin discoloration, clubbing or cyanosis. Good capillary refill. . Neurologic: Gait w/ assist. ASSESSMENT/PLAN: 1. Weight loss - ICD9: 783.21, ICD10: R63.4 (primary diagnosis) 7# weight loss in a month. 9 # in 2 months. Refers decreased appetite, change in stools, hx of CA. Will get weight loss work-up and CT of the abdomin to r/o pathology. - CBC + DIFF - TSH BLD - COMP METABOLIC PANEL - URINALYSIS, WITH MICROSCOPIC - C-REACTIVE PROTEIN (CRP) - XR CHEST 2V FRONTAL/LAT - FECAL OCCULT BLOOD TEST - CT ABD/PEL W IVCON - IV CONTRAST (RADIOLOGY PROCEDURE) - ENTERIC CONTRAST (RADIOLOGY PROCEDURE) - URINE CULTURE - T4 FREE/FREE THYROX - FECAL OCCULT BLOOD TEST Encouraged to start miralax daily to help with constipation. If normal imaging, may need to consider colonoscopy. 2. Tachycardia - ICD9: 785.0, ICD10: R00.0 ST. No ectopy. - ECG COMPLETE 3. Other general symptoms and signs - ICD9: 780.99, ICD10: R68.89 - URINE CULTURE - FECAL OCCULT BLOOD TEST 4. Visit for screening mammogram - ICD9: V76.12, ICD10: Z12.31 - Set up for mammogram, yearly mammogram recommended - [facility] SCREENING 5. Type 2 diabetes mellitus without complication, without long-term current use of insulin (HCC) - ICD9: 250.00, ICD10: E11.9 - Control undetermined, due for labs - Continue current medications - HGB A1C 6. Fatigue, unspecified type - ICD9: 780.79, ICD10: R53.83 Sleep hygiene. - TSH BLD - COMP METABOLIC PANEL - HGB A1C - T4 FREE/FREE THYROX 7. JANICE (generalized anxiety disorder) - ICD9: 300.02, ICD10: F41.1 Not currently treated. Not interested in treatment at this time. Discussed treatment plan and patient voices understanding. Patient's questions answered appropriately. Medications and potential side effects were discussed and patient voices understanding. Return to the office as scheduled or as needed for worsening/no improvement. Codie Bonner APRN.ORACLE FUSION CONSULTANT documented in this encounter [facility] 03-30-2023 Miscellaneous Notes Yon Rubio ([place]: [id number]) - [id number] Cyclobenzaprine HCl 5MG tablets Status: PA Response - Approved Created: March 29, 2023 Sent: March 30, 2023 documented in this encounter [facility] 03-29-2023 Note HNO ID: [id number] Author: Penelope Carpenter APRN.SONALI Service: ? Author Type: Nurse Practitioner Type: Progress Notes Filed: 03/29/2023 4:05 PM Note Text: Chief Complaint No chief complaint on file. HPI Yon Rubio is a 77 year old female who presents here today for Above Complaints.. Yon is an established patient of Dr. Janette MD. She is a new patient to me today. Concerns today.. Headaches /neck pain -- X 1 month. Bilateral neck pain radiating to bilateral ears. Intermittent generalized headaches during this same time (1 month). Reports congestion and mild, non-productive cough started about 2 weeks ago. Headaches worse when bending over/forward. Does feel like sinus pressure and sinus headaches per pt. Does admit to increase stressors recently. Feels like headaches are worse when stressed and anxious. Worse today d/t flustered and unsure where appointment was at. Rash -- Patches of dry, flakey skin all over body. To all extremities and on abd. Son with eczema/psoriasis. Past medical history, appointments, medications, allergies reviewed. Previous Medical History PAST MEDICAL HISTORY Diagnosis Date Abdominal pain, right upper quadrant Diarrhea Diarrhea Essential hypertension, benign Hypertension Impaired fasting glucose 08/26/2010 Irritable bowel syndrome Malignant neoplasm of breast (female), unspecified site 11/21/06 Malignant neoplasm of upper-outer quadrant of left breast in female, estrogen receptor positive (HCC) 07/29/2017 [facility] [place] Other and unspecified hyperlipidemia Unspecified hemorrhoids without mention of complication Hemorrhoids Urinary, incontinence, stress female 08/15/2013 Vitamin D deficiency 08/26/2010 Previous Surgical History PAST SURGICAL HISTORY Procedure Laterality Date BREAST LUMPECTOMY HX Left 07/15/2017 COLONOSCOPY FLX DX W/COLLJ SPEC WHEN PFRMD 12/16/01 Colonoscopy COLONOSCOPY W/BIOPSY SINGLE/MULTIPLE 11/18/06 Repeat in INJ RADIOACTIVE TRACER FOR ID OF SENTINEL NODE 12/06/06 INSJ TUNNELED CTR VAD W/SUBQ PORT AGE 5 YR/> 01/21/07 LEFT IJ MASTECTOMY,PARTIAL, WITH AXILLARY LYMPHADENECTOMY 12/06/06 RIGHT VAGINAL HYSTERECTOMY UTERUS 250 GM/< Hysterectomy, vaginal Family History FAMILY HISTORY Problem Relation Age of Onset Heart Father Breast Cancer Mother Diabetes Brother other (fibromyalgia) Sister Patient Allergies ALLERGIES Allergen Reactions Lipitor [Atorvastat* Intolerance MUSCLE ACHE Metformin Diarrhea Zgiqizi-Nrq-Ivt Red* Myalgia lipitor, pravastatin Vitamin D [Cholecal* GI Upset Current Medications Current Outpatient Medications on File Prior to Visit Medication Sig anastrozole (ARIMIDEX) 1 mg tablet Take 1 tablet by mouth once daily. metoprolol succinate ER (TOPROL XL) 50 mg 24 hr tablet Take 1 tablet by mouth once daily. apixaban (ELIQUIS) 5 mg tab(s) Take 1 tablet by mouth twice daily. potassium chloride 20 mEq TbER Take 1 tablet by mouth once daily. losartan (COZAAR) 100 mg tablet Take 1 tablet by mouth once daily. hydroCHLOROthiazide 25 mg tablet Take 1 tablet by mouth once daily. cholecalciferol (VITAMIN D) 1,000 unit tab tablet Take 1,000 Units by mouth once daily. No current facility-administered medications on file prior to visit. Social History Social History Tobacco Use Smoking status: Never Smokeless tobacco: Never Vaping Use Vaping Use: Never used Substance Use Topics Alcohol use: No Drug use: No REVIEW OF SYSTEMS: as above Reviewed relevant PMHx, PSHx, Social Hx, current medications and allergies. Review of Symptoms REVIEW OF SYSTEMS See HPI. EXAM: There were no vitals taken for this visit. General Appearance: Well appearing, alert, in no acute distress, well-hydrated, well nourished.. Skin: Skin color, texture, turgor normal, no suspicious rashes or lesions, Positives: scattered eczematous rash to bilateral lower extremities and trunk. Patches of dry, scaly, and slightly raised erythema. Head: Normocephalic, no masses, lesions, or abnormalities. + generalized sinus tenderness. Ears: External ears normal, canals clear. TM normal bilaterally with mild buldging. Nose/Sinuses: Nares normal, septum midline, mucosa normal, no drainage or sinus tenderness. Oropharynx: Lips, mucosa, and tongue normal, teeth and gums normal, oropharynx normal. Lungs: Lungs clear to auscultation. No wheezing, rhonchi, rales.. Heart: RRR without murmur, gallop, or rubs. No ectopy. Health Maintenance List BP Controlled (<130/80) Never done Hepatitis B Vaccine(1 of 3 - Risk 3-dose series) Never done RSV Vaccine(1 - 1-dose 60+ series) Never done DTaP,Tdap,Td Vaccine(2 - Tdap) due on 11/06/2015 Dilated Retinal Exam due on 12/25/2022 Influenza Vaccine(1) due on 01/22/2023 Covid-19 Vaccine( - 2022- season) due on 01/22/2023 HbA1C due on 02/20/2023 Urine Albumin:Creatinine Ratio due on 08/21/2023 LDL Cholesterol due on 0 (more content not included)... [facility] 03-29-2023 Instructions Penelope Carpenter APRN.[employer] - 03/29/2023 1:51 PM EST Augmentin antibiotic -- 2x per day x 10 days Flexeril (muscle relaxant) as needed, up to 3 x per day for neck discomfort and tension headache. Triamcinolone cream -- 2-3x per day on rash documented in this encounter [facility] 03-29-2023 History of Present illness Narrative Chief Complaint No chief complaint on file. HPI Yon Rubio is a 77 year old female who presents here today for Above Complaints.. Yon is an established patient of Dr. Janette MD. She is a new patient to me today. Concerns today.. Headaches /neck pain -- X 1 month. Bilateral neck pain radiating to bilateral ears. Intermittent generalized headaches during this same time (1 month). Reports congestion and mild, non-productive cough started about 2 weeks ago. Headaches worse when bending over/forward. Does feel like sinus pressure and sinus headaches per pt. Does admit to increase stressors recently. Feels like headaches are worse when stressed and anxious. Worse today d/t flustered and unsure where appointment was at. Rash -- Patches of dry, flakey skin all over body. To all extremities and on abd. Son with eczema/psoriasis. Past medical history, appointments, medications, allergies reviewed. Previous Medical History PAST MEDICAL HISTORY Diagnosis Date Abdominal pain, right upper quadrant Diarrhea Diarrhea Essential hypertension, benign Hypertension Impaired fasting glucose 08/26/2010 Irritable bowel syndrome Malignant neoplasm of breast (female), unspecified site 11/21/06 Malignant neoplasm of upper-outer quadrant of left breast in female, estrogen receptor positive (HCC) 07/29/2017 [facility] [place] Other and unspecified hyperlipidemia Unspecified hemorrhoids without mention of complication Hemorrhoids Urinary, incontinence, stress female 08/15/2013 Vitamin D deficiency 08/26/2010 Previous Surgical History PAST SURGICAL HISTORY Procedure Laterality Date BREAST LUMPECTOMY HX Left 07/15/2017 COLONOSCOPY FLX DX W/COLLJ SPEC WHEN PFRMD 12/16/01 Colonoscopy COLONOSCOPY W/BIOPSY SINGLE/MULTIPLE 11/18/06 Repeat in INJ RADIOACTIVE TRACER FOR ID OF SENTINEL NODE 12/06/06 INSJ TUNNELED CTR VAD W/SUBQ PORT AGE 5 YR/> 01/21/07 LEFT IJ MASTECTOMY,PARTIAL, WITH AXILLARY LYMPHADENECTOMY 12/06/06 RIGHT VAGINAL HYSTERECTOMY UTERUS 250 GM/< Hysterectomy, vaginal Family History FAMILY HISTORY Problem Relation Age of Onset Heart Father Breast Cancer Mother Diabetes Brother other (fibromyalgia) Sister Patient Allergies ALLERGIES Allergen Reactions Lipitor [Atorvastat* Intolerance MUSCLE ACHE Metformin Diarrhea Vmboggq-Byc-Kcb Red* Myalgia lipitor, pravastatin Vitamin D [Cholecal* GI Upset Current Medications Current Outpatient Medications on File Prior to Visit Medication Sig anastrozole (ARIMIDEX) 1 mg tablet Take 1 tablet by mouth once daily. metoprolol succinate ER (TOPROL XL) 50 mg 24 hr tablet Take 1 tablet by mouth once daily. apixaban (ELIQUIS) 5 mg tab(s) Take 1 tablet by mouth twice daily. potassium chloride 20 mEq TbER Take 1 tablet by mouth once daily. losartan (COZAAR) 100 mg tablet Take 1 tablet by mouth once daily. hydroCHLOROthiazide 25 mg tablet Take 1 tablet by mouth once daily. cholecalciferol (VITAMIN D) 1,000 unit tab tablet Take 1,000 Units by mouth once daily. No current facility-administered medications on file prior to visit. Social History Social History Tobacco Use Smoking status: Never Smokeless tobacco: Never Vaping Use Vaping Use: Never used Substance Use Topics Alcohol use: No Drug use: No REVIEW OF SYSTEMS: as above Reviewed relevant PMHx, PSHx, Social Hx, current medications and allergies. Review of Symptoms REVIEW OF SYSTEMS See HPI. EXAM: There were no vitals taken for this visit. General Appearance: Well appearing, alert, in no acute distress, well-hydrated, well nourished.. Skin: Skin color, texture, turgor normal, no suspicious rashes or lesions, Positives: scattered eczematous rash to bilateral lower extremities and trunk. Patches of dry, scaly, and slightly raised erythema. Head: Normocephalic, no masses, lesions, or abnormalities. + generalized sinus tenderness. Ears: External ears normal, canals clear. TM normal bilaterally with mild buldging. Nose/Sinuses: Nares normal, septum midline, mucosa normal, no drainage or sinus tenderness. Oropharynx: Lips, mucosa, and tongue normal, teeth and gums normal, oropharynx normal. Lungs: Lungs clear to auscultation. No wheezing, rhonchi, rales.. Heart: RRR without murmur, gallop, or rubs. No ectopy. Health Maintenance List BP Controlled (<130/80) Never done Hepatitis B Vaccine(1 of 3 - Risk 3-dose series) Never done RSV Vaccine(1 - 1-dose 60+ series) Never done DTaP,Tdap,Td Vaccine(2 - Tdap) due on 11/06/2015 Dilated Retinal Exam due on 12/25/2022 Influenza Vaccine(1) due on 01/22/2023 Covid-19 Vaccine(4 - season) due on 01/22/2023 HbA1C due on 02/20/2023 Urine Albumin:Creatinine Ratio due on 08/21/2023 LDL Cholesterol due on 08/21/2023 Annual PCP Team Chronic Disease Visit due on 02/27/2024 Bone Density Screening Completed Advance Directive Discussion Completed Depression Assessment Completed Pneumococcal Vaccine: 65+ Completed HPV Vaccine Aged Out Diabetic Foot Exam Discontinued Colorectal Cancer Screening Discontinued Shingrix Vaccine Discontinued ASSESSMENT/PLAN: 1. Headache, unspecified headache type - ICD9: 784.0, ICD10: R51.9 (primary diagnosis) Tension headache vs sinus headache. Augmentin BID x 10 days for sinusitits. Short term flexeril as needed for tension headaches. If no improvement, may need to consider anxiety causing symptoms. - AMOXICILLIN 875 MG-POTASSIUM CLAVULANATE 125 MG TABLET - CYCLOBENZAPRINE 5 MG TABLET 2. Sinus pressure - ICD9: 478.19, ICD10: J34.89 - Will begin treatment with as per antibiotic as written, see orders - The patient should also be given warm salt water gargles, throat lozenges and/or OTC throat spray as needed and nasal saline gtts and suction prn for the first 5-7 days of treatment. - Supportive care with plenty of fluids, rest, and analgesia prn. - Follow up in 3-5 days if symptoms persist or worsen. 3. Bacterial sinusitis - ICD9: 473.9, 041.9, ICD10: J32.9, B96.89 - Will begin treatment with as per antibiotic as written, see orders - The patient should also be given OTC decongestants prn, OTC cough and cold meds as needed, warm salt water gargles, throat lozenges and/or OTC throat spray as needed, and nasal saline gtts and suction prn for the first 5-7 days of treatment. - Supportive care with plenty of fluids, rest, and analgesia prn. - Follow up in 3-5 days if symptoms persist or worsen. - AMOXICILLIN 875 MG-POTASSIUM CLAVULANATE 125 MG TABLET 4. Eczema, unspecified type - ICD9: 692.9, ICD10: L30.9 - discussed skin care of rash - follow up if symptoms persist or worsen. - TRIAMCINOLONE ACETONIDE 0.5 % TOPICAL CREAM RTO with PCP team for routine follow-up within the next 1-2 months d/t numerous complaints related to chronic conditions. Acute concerns addressed today. Prescription instructions reviewed with patient as applicable. Potential red flag symptoms discussed with the patient. Reviewed appropriate action plan to take if red flag symptoms occur. Patient agreeable to treatment plan. Penelope Sood APRN.[employer] [id number] [place] [address] documented in this encounter [facility] 02-26-2023 Note HNO ID: [id number] Author: Keturah Elliott APRN.SONALI Service: ? Author Type: Nurse Practitioner Type: Progress Notes Filed: 02/26/2023 10:36 AM Note Text: Chief Complaint Patient presents with: Follow Up HPI Yon Rubio is a 77 year old female who presents here today for Above Complaints.. Patient presents for decreased hearing. Patient wears hearing aids and was told her ears were full of wax and that is why she was having problems hearing. Past medical history, appointments, medications, allergies reviewed. Previous Medical History PAST MEDICAL HISTORY Diagnosis Date Abdominal pain, right upper quadrant Diarrhea Diarrhea Essential hypertension, benign Hypertension Impaired fasting glucose 08/26/2010 Irritable bowel syndrome Malignant neoplasm of breast (female), unspecified site 11/21/06 Malignant neoplasm of upper-outer quadrant of left breast in female, estrogen receptor positive (HCC) 07/29/2017 [facility] [place] Other and unspecified hyperlipidemia Unspecified hemorrhoids without mention of complication Hemorrhoids Urinary, incontinence, stress female 08/15/2013 Vitamin D deficiency 08/26/2010 Previous Surgical History PAST SURGICAL HISTORY Procedure Laterality Date BREAST LUMPECTOMY HX Left 07/15/2017 COLONOSCOPY FLX DX W/COLLJ SPEC WHEN PFRMD 12/16/01 Colonoscopy COLONOSCOPY W/BIOPSY SINGLE/MULTIPLE 11/18/06 Repeat in INJ RADIOACTIVE TRACER FOR ID OF SENTINEL NODE 12/06/06 INSJ TUNNELED CTR VAD W/SUBQ PORT AGE 5 YR/> 01/21/07 LEFT IJ MASTECTOMY,PARTIAL, WITH AXILLARY LYMPHADENECTOMY 12/06/06 RIGHT VAGINAL HYSTERECTOMY UTERUS 250 GM/< Hysterectomy, vaginal Family History FAMILY HISTORY Problem Relation Age of Onset Heart Father Breast Cancer Mother Diabetes Brother other (fibromyalgia) Sister Patient Allergies ALLERGIES Allergen Reactions Lipitor [Atorvastat* Intolerance MUSCLE ACHE Metformin Diarrhea Cpymuwg-Zgi-Gut Red* Myalgia lipitor, pravastatin Vitamin D [Cholecal* GI Upset Current Medications Current Outpatient Medications on File Prior to Visit Medication Sig anastrozole (ARIMIDEX) 1 mg tablet Take 1 tablet by mouth once daily. metoprolol succinate ER (TOPROL XL) 50 mg 24 hr tablet Take 1 tablet by mouth once daily. apixaban (ELIQUIS) 5 mg tab(s) Take 1 tablet by mouth twice daily. potassium chloride 20 mEq TbER Take 1 tablet by mouth once daily. losartan (COZAAR) 100 mg tablet Take 1 tablet by mouth once daily. hydroCHLOROthiazide 25 mg tablet Take 1 tablet by mouth once daily. cholecalciferol (VITAMIN D) 1,000 unit tab tablet Take 1,000 Units by mouth once daily. No current facility-administered medications on file prior to visit. Social History Social History Tobacco Use Smoking status: Never Smokeless tobacco: Never Vaping Use Vaping Use: Never used Substance Use Topics Alcohol use: No Drug use: No Review of Symptoms REVIEW OF SYSTEMS SEE HPI EXAM: BP 144/90 Pulse 104 Resp 16 Wt 85.7 kg (189 lb) BMI 34.02 kg/m? General Appearance: Well appearing, alert, in no acute distress, well-hydrated, well nourished.. Ears: Positive findings: cerumen bilaterally, amount Small, nonobstructing. Health Maintenance List BP Controlled (<130/80) Never done Hepatitis B Vaccine(1 of 3 - Risk 3-dose series) Never done DTaP,Tdap,Td Vaccine(2 - Tdap) due on 11/06/2015 Covid-19 Vaccine(4 - Moderna series) due on 06/03/2021 Dilated Retinal Exam due on 12/25/2022 Influenza Vaccine(1) due on 01/22/2023 HbA1C due on 02/20/2023 Urine Albumin:Creatinine Ratio due on 08/21/2023 LDL Cholesterol due on 08/21/2023 Annual PCP Team Chronic Disease Visit due on 08/25/2023 Bone Density Screening Completed Advance Directive Discussion Completed Depression Assessment Completed Pneumococcal Vaccine: 65+ Completed HPV Vaccine Aged Out Diabetic Foot Exam Discontinued Colorectal Cancer Screening Discontinued Shingrix Vaccine Discontinued ASSESSMENT/PLAN: 1. Bilateral hearing loss, unspecified hearing loss type - ICD9: 389.9, ICD10: H91.93 -small amount nonobstructing cerumen noted to bilateral ears. -Instructed patient to follow up with manager float Keturah Elliott APRN.[facility] 02-26-2023 History of Present illness Narrative Chief Complaint Patient presents with: Follow Up HPI Yon Rubio is a 77 year old female who presents here today for Above Complaints.. Patient presents for decreased hearing. Patient wears hearing aids and was told her ears were full of wax and that is why she was having problems hearing. Past medical history, appointments, medications, allergies reviewed. Previous Medical History PAST MEDICAL HISTORY Diagnosis Date Abdominal pain, right upper quadrant Diarrhea Diarrhea Essential hypertension, benign Hypertension Impaired fasting glucose 08/26/2010 Irritable bowel syndrome Malignant neoplasm of breast (female), unspecified site 11/21/06 Malignant neoplasm of upper-outer quadrant of left breast in female, estrogen receptor positive (HCC) 07/29/2017 [facility] [place] Other and unspecified hyperlipidemia Unspecified hemorrhoids without mention of complication Hemorrhoids Urinary, incontinence, stress female 08/15/2013 Vitamin D deficiency 08/26/2010 Previous Surgical History PAST SURGICAL HISTORY Procedure Laterality Date BREAST LUMPECTOMY HX Left 07/15/2017 COLONOSCOPY FLX DX W/COLLJ SPEC WHEN PFRMD 12/16/01 Colonoscopy COLONOSCOPY W/BIOPSY SINGLE/MULTIPLE 11/18/06 Repeat in INJ RADIOACTIVE TRACER FOR ID OF SENTINEL NODE 12/06/06 INSJ TUNNELED CTR VAD W/SUBQ PORT AGE 5 YR/> 01/21/07 LEFT IJ MASTECTOMY,PARTIAL, WITH AXILLARY LYMPHADENECTOMY 12/06/06 RIGHT VAGINAL HYSTERECTOMY UTERUS 250 GM/< Hysterectomy, vaginal Family History FAMILY HISTORY Problem Relation Age of Onset Heart Father Breast Cancer Mother Diabetes Brother other (fibromyalgia) Sister Patient Allergies ALLERGIES Allergen Reactions Lipitor [Atorvastat* Intolerance MUSCLE ACHE Metformin Diarrhea Xpnrdsw-Cny-Vuv Red* Myalgia lipitor, pravastatin Vitamin D [Cholecal* GI Upset Current Medications Current Outpatient Medications on File Prior to Visit Medication Sig anastrozole (ARIMIDEX) 1 mg tablet Take 1 tablet by mouth once daily. metoprolol succinate ER (TOPROL XL) 50 mg 24 hr tablet Take 1 tablet by mouth once daily. apixaban (ELIQUIS) 5 mg tab(s) Take 1 tablet by mouth twice daily. potassium chloride 20 mEq TbER Take 1 tablet by mouth once daily. losartan (COZAAR) 100 mg tablet Take 1 tablet by mouth once daily. hydroCHLOROthiazide 25 mg tablet Take 1 tablet by mouth once daily. cholecalciferol (VITAMIN D) 1,000 unit tab tablet Take 1,000 Units by mouth once daily. No current facility-administered medications on file prior to visit. Social History Social History Tobacco Use Smoking status: Never Smokeless tobacco: Never Vaping Use Vaping Use: Never used Substance Use Topics Alcohol use: No Drug use: No Review of Symptoms REVIEW OF SYSTEMS SEE HPI EXAM: BP 144/90 Pulse 104 Resp 16 Wt 85.7 kg (189 lb) BMI 34.02 kg/m General Appearance: Well appearing, alert, in no acute distress, well-hydrated, well nourished.. Ears: Positive findings: cerumen bilaterally, amount Small, nonobstructing. Health Maintenance List BP Controlled (<130/80) Never done Hepatitis B Vaccine(1 of 3 - Risk 3-dose series) Never done DTaP,Tdap,Td Vaccine(2 - Tdap) due on 11/06/2015 Covid-19 Vaccine(4 - Moderna series) due on 06/03/2021 Dilated Retinal Exam due on 12/25/2022 Influenza Vaccine(1) due on 01/22/2023 HbA1C due on 02/20/2023 Urine Albumin:Creatinine Ratio due on 08/21/2023 LDL Cholesterol due on 08/21/2023 Annual PCP Team Chronic Disease Visit due on 08/25/2023 Bone Density Screening Completed Advance Directive Discussion Completed Depression Assessment Completed Pneumococcal Vaccine: 65+ Completed HPV Vaccine Aged Out Diabetic Foot Exam Discontinued Colorectal Cancer Screening Discontinued Shingrix Vaccine Discontinued ASSESSMENT/PLAN: 1. Bilateral hearing loss, unspecified hearing loss type - ICD9: 389.9, ICD10: H91.93 -small amount nonobstructing cerumen noted to bilateral ears. -Instructed patient to follow up with manager float Keturah Elliott APRN.[employer] CONSULTANT documented in this encounter [facility] 02-25-2023 Note Patient Outreach (NE TNAV) YON RUBIO ([id number]) 1945 F Date Time Provider Department 02/25/23 DENISE MONTES NETLIUV During your visit today, we recorded the following information about you: Denise Montes MA 02/25/2023 2:51 PM Signed POPULATION HEALTH NAVIGATION OUTREACH Action/[facility] Spoke to Yon. Scheduled appt for 02-26-23 ANNUAL MEDICARE WELLNESS BP Controlled (<130/80) Never done Influenza Vaccine(1) due on 01/22/2023 HbA1C due on 02/20/2023 Patient Identified by Name and : YES, via phone Outreach Outcome/Action Spoke to patient / parent / legal guardian: Patient scheduled Did you use a PCP flex slot to schedule this appointment? No Reason for Outreach Care Gap or Scheduling/Wellness visits Payer: Payor: MEDICARE / Plan: MEDICARE A AND B / Product Type: Medicare / Care Gap Reviewed:: Annual Wellness visit Controlling Blood Pressure HBA1C Flu Vaccine Reminder: Reminder note to check Health Maintenance for items below Health Maintenance items due: BP Controlled (<130/80) Never done Hepatitis B Vaccine(1 of 3 - Risk 3-dose series) Never done DTaP,Tdap,Td Vaccine(2 - Tdap) due on 11/06/2015 Covid-19 Vaccine(4 - Moderna series) due on 06/03/2021 Dilated Retinal Exam due on 12/25/2022 Influenza Vaccine(1) due on 01/22/2023 HbA1C due on 02/20/2023 Navigation Signature: Denise Montes MA February 25, 2023 8:08 AM Allergies As of Date: 02/25/2023 Noted Allergy Reaction LIPITOR (ATORVASTATIN CALCIUM) 12/28/2005 5 - Intolerance Comments: MUSCLE ACHE METFORMIN 10/07/2018 6 - Diarrhea [id number] REDUCTASE INHIBIT*09/22/2018 17 - Myalgia Comments: lipitor, pravastatin VITAMIN D (CHOLECALCIFEROL (VITAM*09/14/2011 8 - GI Upset Date Reviewed: 08/24/2022 Reviewed by: Ziyad Simons LPN - Fully Assessed Reason for Visit: Population Health Navigation Outreach [3910] Cmt: ACO BP AND DM Prescriptions as of 03/09/2023 - anastrozole (ARIMIDEX) 1 mg tablet Take 1 tablet by mouth once daily. - metoprolol succinate ER (TOPROL XL) 50 mg 24 hr tablet Take 1 tablet by mouth once daily. - apixaban (ELIQUIS) 5 mg tab(s) Take 1 tablet by mouth twice daily. - potassium chloride 20 mEq TbER Take 1 tablet by mouth once daily. - losartan (COZAAR) 100 mg tablet Take 1 tablet by mouth once daily. - hydroCHLOROthiazide 25 mg tablet Take 1 tablet by mouth once daily. - cholecalciferol (VITAMIN D) 1,000 unit tab tablet Take 1,000 Units by mouth once daily. Problem List As Of Date 02/25/2023 Noted Resolved BENIGN HYPERTENSION [I10] Diarrhea [R19.7] 08/15/2014 Irritable bowel syndrome [K58.9] 08/15/2014 Abdominal pain, right upper quadrant [R10.11] 11/18/2006 08/15/2014 BREAST CANCER UPPER OUTER [C50.419] 12/05/2006 MALIG AMMON LYMPH-AXILLA/ARM [C77.3] 07/06/2007 Female Stress Incontinence [N39.3] 07/16/2009 Urethrocele [N36.8] 07/16/2009 Postmenopausal Atrophic Vaginitis [N95.2] 07/16/2009 Cellulitis and abscess of trunk [L03.319, L02.2*07/16/2009 08/15/2014 Impaired fasting glucose [R73.01] 08/26/2010 03/23/2016 Vitamin D deficiency [E55.9] 08/26/2010 Arthralgia [M25.50] 07/30/2011 History of breast cancer [Z85.3] 08/28/2013 Cancer of breast, intraductal [D05.10] 02/05/2016 Hypokalemia [E87.6] 04/11/2016 05/07/2017 Hearing deficit [H91.90] 08/07/2016 Impaired fasting glucose [R73.01] 05/07/2017 04/28/2021 Hyperlipidemia LDL goal <100 [E78.5] 06/02/2017 Statin intolerance [Z78.9] 06/02/2017 Malignant neoplasm of upper-outer quadrant of l*09/13/2017 Controlled type 2 diabetes mellitus with retino*09/08/2018 Acute saddle pulmonary embolism without acute c*10/24/2019 12/12/2019 Severe anxiety with panic [F41.0] 10/24/2019 Chronic anticoagulation [Z79.01] 10/24/2019 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 Author Type: Drug Enforcement Agent Type: Progress Notes Filed: 02/25/2023 2:51 PM Note Text: POPULATION HEALTH NAVIGATION OUTREACH Action/ [facility] Spoke to Yon. Scheduled appt for 02-26-23 ANNUAL MEDICARE WELLNESS BP Controlled (<130/80) Never done Influenza Vaccine(1) due on 01/22/2023 HbA1C due on 02/20/2023 Patient Identified by Name and : YES, via phone Outreach Outcome/Action Spoke to patient / parent / legal guardian: Patient scheduled Did you use a PCP flex slot to schedule this appointment? No Reason for Outreach Care Gap or Scheduling/Wellness visits Payer: Payor: MEDICARE / Plan: MEDICARE A AND B / Product Type: Medicare / Care Gap Reviewed:: Annual Wellness visit Controlling Blood Pressure HBA1C Flu Vaccine Reminder: Reminder note to check Health Maintenance for items below Health Maintenance items due: BP Controlled (<130/80) Never done Hepatitis B Vaccine(1 of 3 - Risk 3-dose series) Never done DTaP,Tdap,Td Vaccine(2 - Tdap) due on 11/06/2015 Covid-19 Vaccine(4 - Moderna series) due on 06/03/2021 Dilated Retinal Exam due on 12/25/2022 Influenza Vaccine(1) due on 01/22/2023 HbA1C due on 02/20/2023 Navigation Signature: Denise Montes MA February 25, 2023 8:08 AM [facility] 02-25-2023 History of Present illness Narrative POPULATION HEALTH NAVIGATION OUTREACH Action/[facility]I [facility] Spoke to Yon. Scheduled appt for 02-26-23 ANNUAL MEDICARE WELLNESS BP Controlled (<130/80) Never done Influenza Vaccine(1) due on 01/22/2023 HbA1C due on 02/20/2023 Patient Identified by Name and : YES, via phone Outreach Outcome/Action Spoke to patient / parent / legal guardian: Patient scheduled Did you use a PCP flex slot to schedule this appointment? No Reason for Outreach Care Gap or Scheduling/Wellness visits Payer: Payor: MEDICARE / Plan: MEDICARE A AND B / Product Type: Medicare / Care Gap Reviewed:: Annual Wellness visit Controlling Blood Pressure HBA1C Flu Vaccine Reminder: Reminder note to check Health Maintenance for items below Health Maintenance items due: BP Controlled (<130/80) Never done Hepatitis B Vaccine(1 of 3 - Risk 3-dose series) Never done DTaP,Tdap,Td Vaccine(2 - Tdap) due on 11/06/2015 Covid-19 Vaccine(4 - Moderna series) due on 06/03/2021 Dilated Retinal Exam due on 12/25/2022 Influenza Vaccine(1) due on 01/22/2023 HbA1C due on 02/20/2023 Navigation Signature: Denise Montes MA February 25, 2023 8:08 AM documented in this encounter [facility] 01-07-2023 Miscellaneous Notes Patient has been identified by name and date of : Yes Last office visit in this department: 02/15/2014 RX INSTRUCTIONS: Patient aware RX will be sent to pharmacy. No need to notify patient. Patient phones requesting refills as follows: Requested Prescriptions Pending Prescriptions Disp Refills anastrozole (ARIMIDEX) 1 mg tablet 90 tablet 3 Sig: Take 1 tablet by mouth once daily. Please review and advise. Qing Dias documented in this encounter [facility] 08-24-2022 Note HNO ID: [id number] Author: Codie Bonner APRN.[employer] CONSULTANT Service: ? Author Type: Nurse Practitioner Type: Progress Notes Filed: 08/24/2022 9:28 AM Note Text: This is a 76 year old female who presents today with: Patient presents with: Recheck: 2 week follow up- review labs/ BP check HISTORY OF PRESENT ILLNESS: Yon Rubio is a 76 year old female. Patient presents with: Recheck: 2 week follow up- review labs/ BP check Labs reviewed. HTN: Patient is compliant with meds: Yes Monitors bp at home: No. Denies side effects: No. Chest pain: No. Dyspnea: No. Edema: improved after increasing the HCTZ. Palpitations: No. Syncope: No. Headache: No. Dizziness: No. PAST MEDICAL HISTORY: PAST MEDICAL HISTORY Diagnosis Date Abdominal pain, right upper quadrant Diarrhea Diarrhea Essential hypertension, benign Hypertension Impaired fasting glucose 08/26/2010 Irritable bowel syndrome Malignant neoplasm of breast (female), unspecified site 11/21/06 Malignant neoplasm of upper-outer quadrant of left breast in female, estrogen receptor positive (HCC) 07/29/2017 [facility] [place] Other and unspecified hyperlipidemia Unspecified hemorrhoids without mention of complication Hemorrhoids Urinary, incontinence, stress female 08/15/2013 Vitamin D deficiency 08/26/2010 PAST SURGICAL HISTORY Procedure Laterality Date BREAST LUMPECTOMY HX Left 07/15/2017 COLONOSCOPY FLX DX W/COLLJ SPEC WHEN PFRMD 12/16/01 Colonoscopy COLONOSCOPY W/BIOPSY SINGLE/MULTIPLE 11/18/06 Repeat in INJ RADIOACTIVE TRACER FOR ID OF SENTINEL NODE 12/06/06 INSJ TUNNELED CTR VAD W/SUBQ PORT AGE 5 YR/> 01/21/07 LEFT IJ MASTECTOMY,PARTIAL, WITH AXILLARY LYMPHADENECTOMY 12/06/06 RIGHT VAGINAL HYSTERECTOMY UTERUS 250 GM/< Hysterectomy, vaginal ALLERGIES Lipitor [Atorvastatin Calcium], Metformin, Xqklrgn-Odb-Bih Reductase Inhibitors, and Vitamin D [Cholecalciferol (Vitamin D3)] MEDICATIONS Current Outpatient Medications Medication Sig apixaban (ELIQUIS) 5 mg tab(s) Take 1 tablet by mouth twice daily. potassium chloride 20 mEq TbER Take 1 tablet by mouth once daily. losartan (COZAAR) 100 mg tablet Take 1 tablet by mouth once daily. metoprolol succinate ER (TOPROL XL) 25 mg 24 hr tablet Take 1 tablet by mouth once daily. hydroCHLOROthiazide 25 mg tablet Take 1 tablet by mouth once daily. cholecalciferol (VITAMIN D) 1,000 unit tab tablet Take 1,000 Units by mouth once daily. anastrozole (ARIMIDEX) 1 mg tablet Take 1 tablet by mouth once daily. No current facility-administered medications for this visit. FAMILY HISTORY Problem Relation Age of Onset Heart Father Breast Cancer Mother Diabetes Brother other (fibromyalgia) Sister Social History Tobacco Use Smoking status: Never Smokeless tobacco: Never Vaping Use Vaping Use: Never used Substance Use Topics Alcohol use: No Drug use: No EXAM: BP 138/92 Pulse 94 Resp 18 SpO2 96% PHYSICAL EXAM: General Appearance: Well appearing, alert, in no acute distress, well-hydrated, well nourished. Skin: Skin color, texture, turgor normal, no suspicious rashes or lesions. Head: Normocephalic, no masses, lesions, tenderness or abnormalities. Eyes: Anicteric sclera. Pupils are equally round and reactive to light. Extraocular movements are intact. Lungs: Lungs clear to auscultation. No wheezing, rhonchi, rales.. Heart: RRR without murmur, gallop, or rubs. No ectopy. Extremities: No deformities, skin discoloration, clubbing or cyanosis. Good capillary refill. +1-+2 pitting edema BLE. Neurologic: Gait normal. ASSESSMENT/PLAN: 1. Essential hypertension, benign - ICD9: 401.1, ICD10: I10 - suboptimal control - Increase metoprolol (Lopressor/Toprol) - Recommended regular aerobic exercise. - Recommend home blood pressure monitoring, to bring results in on next visit - Goal of BP <130/80 Recheck in two weeks. 2. Vitamin D deficiency - ICD9: 268.9, ICD10: E55.9 Reports that she is currently taking 400 units daily. She is encouraged to double this and take 800 units daily. When she completes her current stock, she will start 1000 units daily. Discussed treatment plan and patient voices understanding. Patient's questions answered appropriately. Medications and potential side effects were discussed and patient voices understanding. Return to the office as scheduled or as needed for worsening/no improvement. Codie Bonner APRN.SONALI The patient indicates understanding of these issues and agrees with the plan. [facility] 08-24-2022 Instructions Codie Bonner APRN.CNP - 08/24/2022 9:15 AM EDT Increase the metoprolol to 50 mg daily (you can use two of your current tablets until you olive picker the new prescription.) 2. Increase the vitamin D, as discussed. 2. Recheck in 2 weeks. documented in this encounter [facility] 08-24-2022 History of Present illness Narrative This is a 76 year old female who presents today with: Patient presents with: Recheck: 2 week follow up- review labs/ BP check HISTORY OF PRESENT ILLNESS: Yon Rubio is a 76 year old female. Patient presents with: Recheck: 2 week follow up- review labs/ BP check Labs reviewed. HTN: Patient is compliant with meds: Yes Monitors bp at home: No. Denies side effects: No. Chest pain: No. Dyspnea: No. Edema: improved after increasing the HCTZ. Palpitations: No. Syncope: No. Headache: No. Dizziness: No. PAST MEDICAL HISTORY: PAST MEDICAL HISTORY Diagnosis Date Abdominal pain, right upper quadrant Diarrhea Diarrhea Essential hypertension, benign Hypertension Impaired fasting glucose 08/26/2010 Irritable bowel syndrome Malignant neoplasm of breast (female), unspecified site 11/21/06 Malignant neoplasm of upper-outer quadrant of left breast in female, estrogen receptor positive (HCC) 07/29/2017 [facility] [place] Other and unspecified hyperlipidemia Unspecified hemorrhoids without mention of complication Hemorrhoids Urinary, incontinence, stress female 08/15/2013 Vitamin D deficiency 08/26/2010 PAST SURGICAL HISTORY Procedure Laterality Date BREAST LUMPECTOMY HX Left 07/15/2017 COLONOSCOPY FLX DX W/COLLJ SPEC WHEN PFRMD 12/16/01 Colonoscopy COLONOSCOPY W/BIOPSY SINGLE/MULTIPLE 11/18/06 Repeat in INJ RADIOACTIVE TRACER FOR ID OF SENTINEL NODE 12/06/06 INSJ TUNNELED CTR VAD W/SUBQ PORT AGE 5 YR/> 01/21/07 LEFT IJ MASTECTOMY,PARTIAL, WITH AXILLARY LYMPHADENECTOMY 12/06/06 RIGHT VAGINAL HYSTERECTOMY UTERUS 250 GM/< Hysterectomy, vaginal ALLERGIES Lipitor [Atorvastatin Calcium], Metformin, Iidnyxn-Cwl-Kfm Reductase Inhibitors, and Vitamin D [Cholecalciferol (Vitamin D3)] MEDICATIONS Current Outpatient Medications Medication Sig apixaban (ELIQUIS) 5 mg tab(s) Take 1 tablet by mouth twice daily. potassium chloride 20 mEq TbER Take 1 tablet by mouth once daily. losartan (COZAAR) 100 mg tablet Take 1 tablet by mouth once daily. metoprolol succinate ER (TOPROL XL) 25 mg 24 hr tablet Take 1 tablet by mouth once daily. hydroCHLOROthiazide 25 mg tablet Take 1 tablet by mouth once daily. cholecalciferol (VITAMIN D) 1,000 unit tab tablet Take 1,000 Units by mouth once daily. anastrozole (ARIMIDEX) 1 mg tablet Take 1 tablet by mouth once daily. No current facility-administered medications for this visit. FAMILY HISTORY Problem Relation Age of Onset Heart Father Breast Cancer Mother Diabetes Brother other (fibromyalgia) Sister Social History Tobacco Use Smoking status: Never Smokeless tobacco: Never Vaping Use Vaping Use: Never used Substance Use Topics Alcohol use: No Drug use: No EXAM: BP 138/92 Pulse 94 Resp 18 SpO2 96% PHYSICAL EXAM: General Appearance: Well appearing, alert, in no acute distress, well-hydrated, well nourished. Skin: Skin color, texture, turgor normal, no suspicious rashes or lesions. Head: Normocephalic, no masses, lesions, tenderness or abnormalities. Eyes: Anicteric sclera. Pupils are equally round and reactive to light. Extraocular movements are intact. Lungs: Lungs clear to auscultation. No wheezing, rhonchi, rales.. Heart: RRR without murmur, gallop, or rubs. No ectopy. Extremities: No deformities, skin discoloration, clubbing or cyanosis. Good capillary refill. +1-+2 pitting edema BLE. Neurologic: Gait normal. ASSESSMENT/PLAN: 1. Essential hypertension, benign - ICD9: 401.1, ICD10: I10 - suboptimal control - Increase metoprolol (Lopressor/Toprol) - Recommended regular aerobic exercise. - Recommend home blood pressure monitoring, to bring results in on next visit - Goal of BP <130/80 Recheck in two weeks. 2. Vitamin D deficiency - ICD9: 268.9, ICD10: E55.9 Reports that she is currently taking 400 units daily. She is encouraged to double this and take 800 units daily. When she completes her current stock, she will start 1000 units daily. Discussed treatment plan and patient voices understanding. Patient's questions answered appropriately. Medications and potential side effects were discussed and patient voices understanding. Return to the office as scheduled or as needed for worsening/no improvement. Codie Bonner APRN.SONALI The patient indicates understanding of these issues and agrees with the plan. documented in this encounter [facility] 08-07-2022 Note HNO ID: [id number] Author: Lars Powers MD Service: ? Author Type: Physician Type: Progress Notes Filed: 08/07/2022 8:34 AM Note Text: Patient presents with: 6 Month Exam HPI: Patient presents today for office visit for follow up. Overdue for follow up and labs. HTN: Patient is compliant with meds Yes Monitors bp at home: No. Denies side effects: No. Chest pain: No. Dyspnea: No. Edema: No. Her legs just feel tight. Not painful. Difficult historian. She thinks edema may be better in the am. After elevation. Can't tell me how long it has been there but sounds more chronic. No pain. No redness or warmth. He weight had dropped in November but is back at baseline- too much pastries. . No orthopnea. Has complained edema noted in old records. In records, noted dating back to as early as 2017. Palpitations: No. Syncope: No. Headache: No. Dizziness: No. ANTICOAGULATION: Patient is on eliquis for PE. Length of treatment: lifetime. Bleeding or bruising No. Monitored by our office: No. Up to date on inr checks NA. Follows with oncology. DM:does not check her sugars. Is not taking any meds. No foot numbness. No polyuria or polydipsia. MEDICATIONS: Current Outpatient Medications Medication Sig apixaban (ELIQUIS) 5 mg tab(s) Take 1 tablet by mouth twice daily. cholecalciferol (VITAMIN D) 1,000 unit tab tablet Take 1,000 Units by mouth once daily. anastrozole (ARIMIDEX) 1 mg tablet Take 1 tablet by mouth once daily. hydroCHLOROthiazide (HYDRODIURIL, ESIDRIX) 12.5 mg capsule Take 1 capsule by mouth once daily. metoprolol succinate ER (TOPROL XL) 25 mg 24 hr tablet Take 1 tablet by mouth once daily. losartan (COZAAR) 100 mg tablet Take 1 tablet by mouth once daily. potassium chloride 20 mEq TbER Take 1 tablet by mouth once daily. No current facility-administered medications for this visit. ALLERGIES: ALLERGIES Allergen Reactions Lipitor [Atorvastat* Intolerance MUSCLE ACHE Metformin Diarrhea Ifghyoy-Rwf-Ghg Red* Myalgia lipitor, pravastatin Vitamin D [Cholecal* GI Upset PAST MEDICAL HISTORY Diagnosis Date Abdominal pain, right upper quadrant Diarrhea Diarrhea Essential hypertension, benign Hypertension Impaired fasting glucose 08/26/2010 Irritable bowel syndrome Malignant neoplasm of breast (female), unspecified site 11/21/06 Malignant neoplasm of upper-outer quadrant of left breast in female, estrogen receptor positive (HCC) 07/29/2017 [facility] [place] Other and unspecified hyperlipidemia Unspecified hemorrhoids without mention of complication Hemorrhoids Urinary, incontinence, stress female 08/15/2013 Vitamin D deficiency 08/26/2010 PAST SURGICAL HISTORY Procedure Laterality Date BREAST LUMPECTOMY HX Left 07/15/2017 COLONOSCOPY FLX DX W/COLLJ SPEC WHEN PFRMD 12/16/01 Colonoscopy COLONOSCOPY W/BIOPSY SINGLE/MULTIPLE 11/18/06 Repeat in INJ RADIOACTIVE TRACER FOR ID OF SENTINEL NODE 12/06/06 INSJ TUNNELED CTR VAD W/SUBQ PORT AGE 3 YR/> 01/21/07 LEFT IJ MASTECTOMY,PARTIAL, WITH AXILLARY LYMPHADENECTOMY 12/06/06 RIGHT VAGINAL HYSTERECTOMY UTERUS 250 GM/< Hysterectomy, vaginal FAMILY HISTORY Problem Relation Age of Onset Heart Father Breast Cancer Mother Diabetes Brother other (fibromyalgia) Sister Social History Tobacco Use Smoking status: Never Smokeless tobacco: Never Vaping Use Vaping Use: Never used Substance Use Topics Alcohol use: No Drug use: No Reviewed current medications, allergies, past medical history, surgical history, family history and social history today. REVIEW OF SYSTEMS No gi or gu issues. All other reviewed and negative other than HPI. HEALTH MAINTENANCE: Reviewed health maintenance issues today and recommended the following in detail. DTAP,TDAP,TD(2 - Tdap) due on 11/06/2015 COVID-19 VACCINE(4 - Booster for Moderna series) due on 06/03/2021 URINE ALBUMIN:CREATININE RATIO due on 07/02/2021 HBA1C due on 10/28/2021 ANNUAL PCP TEAM CHRONIC DISEASE VISIT due on 04/28/2022 LDL CHOLESTEROL due on 04/29/2022 ADVANCE DIRECTIVE DISCUSSION- says they have one, her son Brenden DEPRESSION ASSESSMENT - Depression Screening 02/04/2016 11/25/2017 08/07/2022 PHQ-2 Score 0 0 0 Depression screening tool completed and reviewed. Based on score and interview, patient is not at risk for depression. Screening tool discussed with patient, and I recommended no further intervention at this time. VITALS: BP 152/82 Pulse 103 Wt 87.5 kg (193 lb) SpO2 94% BMI 34.74 kg/m? Last 4 Encounter Wt Readings: Date: Wt: 08/07/2022 87.5 kg (193 lb) 12/08/2021 80.5 kg (177 lb 8 oz) 04/28/2021 86.2 kg (190 lb) 04/21/2021 86.7 kg (191 lb 3.2 oz) PHYSICAL EXAMINATION: General appearance: Well appearing, alert, in no acute distress, well-hydrated, well nourished. Skin: Skin color, texture, turgor normal, no suspicious rashes or lesions Head: Normocephalic, no masses, lesions, tenderness (more content not included)... [facility] 07-18-2022 Miscellaneous Notes Spoke to patient who is scheduled for 10/15. Please assist pt with scheduling 40min 4C Well Visit. Ziyad Simons LPN Script sent. Due for an appointment. Please let patient know. Codie Bonner APRN.CNP Patient phones requesting refills as follows: Requested Prescriptions Pending Prescriptions Disp Refills apixaban (ELIQUIS) 5 mg tab(s) 180 tablet 1 Sig: Take 1 tablet by mouth twice daily. LAURYN 04/28/21 NOV no upcoming appt *Pt no showed appt on 11/04/21 Pt is overdue for 40min Annual appt and labs. Labs pending. SCHEDULERS PLEASE ASSIST WITH SCHEDULING 40 MIN 4C EST WELL APPT. Please review and advise. Ziyad Simons LPN Patient has been identified by name and date of : Yes Requested Prescriptions Pending Prescriptions Disp Refills apixaban (ELIQUIS) 5 mg tab(s) 180 tablet 1 Sig: Take 1 tablet by mouth twice daily. RX INSTRUCTIONS: Patient aware RX will be sent to pharmacy. Patient is out of the medication and would like to get it today. Teresa Ross documented in this encounter [facility] 12-09-2021 Miscellaneous Notes Patient aware of results below and scheduled for 6MO OV Astrid Terrazas Please inform pt. that her mammogram looks good. Follow up in 6 months. Thank you. Jamilah Bates APRN.SONALI documented in this encounter [facility] 12-08-2021 Miscellaneous Notes December 08, 2021 PID: [id number] [place] [address] Dear Ms. Rubio, We are pleased to inform you that the results of your recent breast imaging exam on 12/08/2021 are normal. Early detection of cancer is very important. We also understand recommendations regarding breast cancer screening are controversial. Please discuss with your primary care provider which strategy is best for you and whether a mammogram is right for you. Your imaging studies and report will be kept on file at [facility] as part of your permanent medical record and are available for your continuing care. Thank you for allowing us to help in meeting your health care needs. Sincerely, Dr. Truong Interpreting Radiologist [facility] (Normal over 40) documented in this encounter [facility] 12-08-2021 History of Present illness Narrative Radiology Service Progress Note PATIENT NAME: Yon Rubio DATE OF SERVICE: December 08, 2021 TIME: 12:32 PM PATIENT IDENTITY VERIFICATION COMPLETED USING TWO (2) IDENTIFIERS: Name and Date of confirmed by patient verbally. FALL SCREENING: Has the patient had 2 falls in the last year or 1 fall with injury or currently using an Ambulatory Assistive Device (Walker, Cane, Wheelchair, Crutches, etc.)? No PATIENT GENDER DATA: Female. status: : No status: NO. PATIENT RELEVANT IMPLANT DATA REVIEWED: Not Applicable RADIOLOGY DEPARTMENT: Mammography PERIPHERAL IV DATA: Not applicable SIGNED BY: RT Clarissa(R) December 08, 2021 12:32 PM documented in this encounter [facility] 11-26-2021 Miscellaneous Notes Spoke with patient and scheduled mamm and OV on 12/08. Kelly Brown Needs mammogram and OV. Rx sent. Thank you. Jamilah Bates APRN.CNP Patient has not been seen here since 12/14/2019. Last mammogram 05/09/2020. Is unsure when she ran out of anastrozole, last prescribed 05/10/2020. Patient was taking a shower and looked in the mirror and noticed a dimple in her left breast on Wednesday. Dimple has since disappeared. Patient stated she had been wearing really old bras when she noticed the dimple and now that she has her new bras, dimple is no longer there but she was scared. Patient has not followed up here in 2 years d/t 's medical issues. Patient denies being able to palpate any lumps. Denies any breast pain, redness or nipple drainage. Would you like an OV and a mammogram? Suze Whitt LPN Please call [phone] she has a questions about her left breast Patient has been identified by name and date of : Yes Last office visit in this department: 02/15/2014 RX INSTRUCTIONS: Patient aware RX will be sent to pharmacy. No need to notify patient. Patient phones requesting refills as follows: Pending Prescriptions Disp Refills ANASTROZOLE 1 MG TABLET 90 tablet 3 Sig: Take 1 tablet by mouth once daily. XAVI: No Please review and advise. Leticia Montes documented in this encounter [facility] 10-06-2021 Miscellaneous Notes TC to pt, notified of provider response. Pt states she had been seeing Ortho for her knee and they prescribed meloxicam for her to take. She states they may not have been aware that she is taking Eliquis. Pt states she has an upcoming appt with Ortho 10/28, she is asking what to take instead of meloxicam. Advised pt she may want to contact Ortho to let them know she is taking Eliquis and has been advised to stop using the meloxicam. Ziyad Simons LPN rx sent. Should not use meloxicam with her eliquis due to bleeding risk Pt changing pharmacies. She is asking for medications to be sent to [facility]. Rx(s) pending. Please review and advise. Ziyad Simons LPN documented in this encounter [facility] 09-15-2021 Miscellaneous Notes Letters done. Codie Bonner APRN.ORACLE FUSION CONSULTANT Pt into office with for an appt. She is asking for letters to renew handicap parking placards. Pt will need 2 letters. Ziyad Simons LPN documented in this encounter [facility] 09-11-2021 Miscellaneous Notes Patient phones requesting refills as follows: Pending Prescriptions Disp Refills HYDROCHLOROTHIAZIDE 12.5 MG CAPSULE 90 capsule 3 Sig: TAKE 1 CAPSULE BY MOUTH EVERY DAY XAVI: Yes LAURYN-04/28/21 Labs-04/29/21 NOV-11/04/21 med filled 08/30/20 Please review and advise. Mame Boswell LPN documented in this encounter [facility] documented as of this encounter (statuses as of 09/12/2021) [facility] History of Past illness Narrative* Problem Noted Date Resolved Date Acute saddle pulmonary embolism without acute co r pulmonale 10/24/2019 12/12/2019 Impaired fasting glucose 05/07/2017 021 Hypokalemia 04/11/2016 05/07/2017 Impaired fasting glucose 08/26/2010 016 Cellulitis and abscess of trunk 07/16/2009 08/15/2014 Abdominal pain, right upper quadrant 11/18/2006 08/15/2014 Diarrhea 08/15/2014 Irritable bowel syndrome 015 documented as of this encounter (statuses as of 09/15/2021) [facility] History of Past illness Narrative* Problem Noted Date Resolved Date Acute saddle pulmonary embolism without acute co r pulmonale 10/24/2019 12/12/2019 Impaired fasting glucose 05/07/2017 021 Hypokalemia 04/11/2016 05/07/2017 Impaired fasting glucose 08/26/2010 016 Cellulitis and abscess of trunk 07/16/2009 08/15/2014 Abdominal pain, right upper quadrant 11/18/2006 08/15/2014 Diarrhea 08/15/2014 Irritable bowel syndrome 015 documented as of this encounter (statuses as of 10/16/2021) [facility] History of Past illness Narrative* Problem Noted Date Resolved Date Acute saddle pulmonary embolism without acute co r pulmonale 10/24/2019 12/12/2019 Impaired fasting glucose 05/07/2017 021 Hypokalemia 04/11/2016 05/07/2017 Impaired fasting glucose 08/26/2010 016 Cellulitis and abscess of trunk 07/16/2009 08/15/2014 Abdominal pain, right upper quadrant 11/18/2006 08/15/2014 Diarrhea 08/15/2014 Irritable bowel syndrome 015 documented as of this encounter (statuses as of 11/26/2021) [facility] History of Past illness Narrative* Problem Noted Date Resolved Date Acute saddle pulmonary embolism without acute co r pulmonale 10/24/2019 12/12/2019 Impaired fasting glucose 05/07/2017 021 Hypokalemia 04/11/2016 05/07/2017 Impaired fasting glucose 08/26/2010 016 Cellulitis and abscess of trunk 07/16/2009 08/15/2014 Abdominal pain, right upper quadrant 11/18/2006 08/15/2014 Diarrhea 08/15/2014 Irritable bowel syndrome 015 documented as of this encounter (statuses as of 12/09/2021) [facility] History of Past illness Narrative* Problem Noted Date Resolved Date Acute saddle pulmonary embolism without acute co r pulmonale 10/24/2019 12/12/2019 Impaired fasting glucose 05/07/2017 021 Hypokalemia 04/11/2016 05/07/2017 Impaired fasting glucose 08/26/2010 016 Cellulitis and abscess of trunk 07/16/2009 08/15/2014 Abdominal pain, right upper quadrant 11/18/2006 08/15/2014 Diarrhea 08/15/2014 Irritable bowel syndrome 015 documented as of this encounter (statuses as of 12/09/2021) [facility] History of Past illness Narrative* Problem Noted Date Resolved Date Acute saddle pulmonary embolism without acute co r pulmonale 10/24/2019 12/12/2019 Impaired fasting glucose 05/07/2017 021 Hypokalemia 04/11/2016 05/07/2017 Impaired fasting glucose 08/26/2010 016 Cellulitis and abscess of trunk 07/16/2009 08/15/2014 Abdominal pain, right upper quadrant 11/18/2006 08/15/2014 Diarrhea 08/15/2014 Irritable bowel syndrome 015 documented as of this encounter (statuses as of 12/10/2021) [facility] History of Past illness Narrative* Problem Noted Date Resolved Date Acute saddle pulmonary embolism without acute co r pulmonale 10/24/2019 12/12/2019 Impaired fasting glucose 05/07/2017 021 Hypokalemia 04/11/2016 05/07/2017 Impaired fasting glucose 08/26/2010 016 Cellulitis and abscess of trunk 07/16/2009 08/15/2014 Abdominal pain, right upper quadrant 11/18/2006 08/15/2014 Diarrhea 08/15/2014 Irritable bowel syndrome 015 documented as of this encounter (statuses as of 04/21/2022) [facility] History of Past illness Narrative* Problem Noted Date Resolved Date Acute saddle pulmonary embolism without acute co r pulmonale 10/24/2019 12/12/2019 Impaired fasting glucose 05/07/2017 021 Hypokalemia 04/11/2016 05/07/2017 Impaired fasting glucose 08/26/2010 016 Cellulitis and abscess of trunk 07/16/2009 08/15/2014 Abdominal pain, right upper quadrant 11/18/2006 08/15/2014 Diarrhea 08/15/2014 Irritable bowel syndrome 015 documented as of this encounter (statuses as of 07/18/2022) [facility] History of Past illness Narrative* Problem Noted Date Resolved Date Acute saddle pulmonary embolism without acute co r pulmonale 10/24/2019 12/12/2019 Impaired fasting glucose 05/07/2017 021 Hypokalemia 04/11/2016 05/07/2017 Impaired fasting glucose 08/26/2010 016 Cellulitis and abscess of trunk 07/16/2009 08/15/2014 Abdominal pain, right upper quadrant 11/18/2006 08/15/2014 Diarrhea 08/15/2014 Irritable bowel syndrome 015 documented as of this encounter (statuses as of 08/24/2022) [facility] History of Past illness Narrative* Problem Noted Date Diagnosed Date Resolved Date Acute saddle pulmonary embol ism without acute cor pulmonale 10/24/2019 12/12/2019 Impaired fasting glucose 05/07/201710/2020 Hypokalemia 04/11/2016 05/07/2017 Impaired fasting glucose 08/26/2010 Cellulitis and abscess of trunk 07/16/2009 08/15/2014 Abdominal pain, right upper quadrant 11/18/2006 08/15/2014 Diarrhea 08/15/2014 Irritable bowel syndrome documented as of this encounter (statuses as of 01/08/2023) [facility] History of Past illness Narrative* Problem Noted Date Diagnosed Date Resolved Date Acute saddle pulmonary embol ism without acute cor pulmonale 10/24/2019 12/12/2019 Impaired fasting glucose 05/07/201710/2020 Hypokalemia 04/11/2016 05/07/2017 Impaired fasting glucose 08/26/2010 Cellulitis and abscess of trunk 07/16/2009 08/15/2014 Abdominal pain, right upper quadrant 11/18/2006 08/15/2014 Diarrhea 08/15/2014 Irritable bowel syndrome documented as of this encounter (statuses as of 02/27/2023) [facility] History of Past illness Narrative* Problem Noted Date Diagnosed Date Resolved Date Acute saddle pulmonary embol ism without acute cor pulmonale 10/24/2019 12/12/2019 Impaired fasting glucose 05/07/201710/2020 Hypokalemia 04/11/2016 05/07/2017 Impaired fasting glucose 08/26/2010 Cellulitis and abscess of trunk 07/16/2009 08/15/2014 Abdominal pain, right upper quadrant 11/18/2006 08/15/2014 Diarrhea 08/15/2014 Irritable bowel syndrome documented as of this encounter (statuses as of 02/27/2023) [facility] History of Past illness Narrative* Problem Noted Date Diagnosed Date Resolved Date Acute saddle pulmonary embol ism without acute cor pulmonale 10/24/2019 12/12/2019 Impaired fasting glucose 05/07/201710/2020 Hypokalemia 04/11/2016 05/07/2017 Impaired fasting glucose 08/26/2010 Cellulitis and abscess of trunk 07/16/2009 08/15/2014 Abdominal pain, right upper quadrant 11/18/2006 08/15/2014 Diarrhea 08/15/2014 Irritable bowel syndrome documented as of this encounter (statuses as of 03/30/2023) [facility] History of Past illness Narrative* Problem Noted Date Diagnosed Date Resolved Date Acute saddle pulmonary embol ism without acute cor pulmonale 10/24/2019 12/12/2019 Impaired fasting glucose 05/07/201710/2020 Hypokalemia 04/11/2016 05/07/2017 Impaired fasting glucose 08/26/2010 Cellulitis and abscess of trunk 07/16/2009 08/15/2014 Abdominal pain, right upper quadrant 11/18/2006 08/15/2014 Diarrhea 08/15/2014 Irritable bowel syndrome documented as of this encounter (statuses as of 03/31/2023) [facility] History of Past illness Narrative* Problem Noted Date Diagnosed Date Resolved Date Acute saddle pulmonary embol ism without acute cor pulmonale 10/24/2019 12/12/2019 Impaired fasting glucose 05/07/201710/2020 Hypokalemia 04/11/2016 05/07/2017 Impaired fasting glucose 08/26/2010 Cellulitis and abscess of trunk 07/16/2009 08/15/2014 Abdominal pain, right upper quadrant 11/18/2006 08/15/2014 Diarrhea 08/15/2014 Irritable bowel syndrome documented as of this encounter (statuses as of 04/28/2023) [facility] History of Past illness Narrative* Problem Noted Date Diagnosed Date Resolved Date Acute saddle pulmonary embol ism without acute cor pulmonale 10/24/2019 12/12/2019 Impaired fasting glucose 05/07/201710/2020 Hypokalemia 04/11/2016 05/07/2017 Impaired fasting glucose 08/26/2010 Cellulitis and abscess of trunk 07/16/2009 08/15/2014 Abdominal pain, right upper quadrant 11/18/2006 08/15/2014 Diarrhea 08/15/2014 Irritable bowel syndrome documented as of this encounter (statuses as of 05/04/2023) [facility] of Past illness Narrative* Problem Noted Date Diagnosed Date Resolved Date Acute saddle pulmonary embol ism without acute cor pulmonale 10/24/2019 12/12/2019 Impaired fasting glucose 05/07/201710/2020 Hypokalemia 04/11/2016 05/07/2017 Impaired fasting glucose 08/26/2010 Cellulitis and abscess of trunk 07/16/2009 08/15/2014 Abdominal pain, right upper quadrant 11/18/2006 08/15/2014 Diarrhea 08/15/2014 Irritable bowel syndrome documented as of this encounter (statuses as of 05/04/2023) [facility] History of Past illness Narrative* Problem Noted Date Diagnosed Date Resolved Date Acute saddle pulmonary embol ism without acute cor pulmonale 10/24/2019 12/12/2019 Impaired fasting glucose 05/07/201710/2020 Hypokalemia 04/11/2016 05/07/2017 Impaired fasting glucose 08/26/2010 Cellulitis and abscess of trunk 07/16/2009 08/15/2014 Abdominal pain, right upper quadrant 11/18/2006 08/15/2014 Diarrhea 08/15/2014 Irritable bowel syndrome documented as of this encounter (statuses as of 05/04/2023) [facility] of Past illness Narrative* Problem Noted Date Diagnosed Date Resolved Date Acute saddle pulmonary embol ism without acute cor pulmonale 10/24/2019 12/12/2019 Impaired fasting glucose 05/07/201710/2020 Hypokalemia 04/11/2016 05/07/2017 Impaired fasting glucose 08/26/2010 Cellulitis and abscess of trunk 07/16/2009 08/15/2014 Abdominal pain, right upper quadrant 11/18/2006 08/15/2014 Diarrhea 08/15/2014 Irritable bowel syndrome documented as of this encounter (statuses as of 05/04/2023) [facility] History of Past illness Narrative* Problem Noted Date Diagnosed Date Resolved Date Acute saddle pulmonary embol ism without acute cor pulmonale 10/24/2019 12/12/2019 Impaired fasting glucose 05/07/201710/2020 Hypokalemia 04/11/2016 05/07/2017 Impaired fasting glucose 08/26/2010 Cellulitis and abscess of trunk 07/16/2009 08/15/2014 Abdominal pain, right upper quadrant 11/18/2006 08/15/2014 Diarrhea 08/15/2014 Irritable bowel syndrome documented as of this encounter (statuses as of 05/04/2023) [facility] History of Past illness Narrative* Problem Noted Date Diagnosed Date Resolved Date Acute saddle pulmonary embol ism without acute cor pulmonale 10/24/2019 12/12/2019 Impaired fasting glucose 05/07/201710/2020 Hypokalemia 04/11/2016 05/07/2017 Impaired fasting glucose 08/26/2010 Cellulitis and abscess of trunk 07/16/2009 08/15/2014 Abdominal pain, right upper quadrant 11/18/2006 08/15/2014 Diarrhea 08/15/2014 Irritable bowel syndrome documented as of this encounter (statuses as of 05/04/2023) [facility] History of Past illness Narrative* Problem Noted Date Diagnosed Date Resolved Date Acute saddle pulmonary embol ism without acute cor pulmonale 10/24/2019 12/12/2019 Impaired fasting glucose 05/07/201710/2020 Hypokalemia 04/11/2016 05/07/2017 Impaired fasting glucose 08/26/2010 Cellulitis and abscess of trunk 07/16/2009 08/15/2014 Abdominal pain, right upper quadrant 11/18/2006 08/15/2014 Diarrhea 08/15/2014 Irritable bowel syndrome documented as of this encounter (statuses as of 05/05/2023) [facility] of Past illness Narrative* Problem Noted Date Diagnosed Date Resolved Date Acute saddle pulmonary embol ism without acute cor pulmonale 10/24/2019 12/12/2019 Impaired fasting glucose 05/07/201710/2020 Hypokalemia 04/11/2016 05/07/2017 Impaired fasting glucose 08/26/2010 Cellulitis and abscess of trunk 07/16/2009 08/15/2014 Abdominal pain, right upper quadrant 11/18/2006 08/15/2014 Diarrhea 08/15/2014 Irritable bowel syndrome documented as of this encounter (statuses as of 05/05/2023) [facility] History of Past illness Narrative* Problem Noted Date Diagnosed Date Resolved Date Acute saddle pulmonary embol ism without acute cor pulmonale 10/24/2019 12/12/2019 Impaired fasting glucose 05/07/201710/2020 Hypokalemia 04/11/2016 05/07/2017 Impaired fasting glucose 08/26/2010 Cellulitis and abscess of trunk 07/16/2009 08/15/2014 Abdominal pain, right upper quadrant 11/18/2006 08/15/2014 Diarrhea 08/15/2014 Irritable bowel syndrome documented as of this encounter (statuses as of 05/05/2023) [facility] History of Past illness Narrative* Problem Noted Date Diagnosed Date Resolved Date Acute saddle pulmonary embol ism without acute cor pulmonale 10/24/2019 12/12/2019 Impaired fasting glucose 05/07/201710/2020 Hypokalemia 04/11/2016 05/07/2017 Impaired fasting glucose 08/26/2010 Cellulitis and abscess of trunk 07/16/2009 08/15/2014 Abdominal pain, right upper quadrant 11/18/2006 08/15/2014 Diarrhea 08/15/2014 Irritable bowel syndrome documented as of this encounter (statuses as of 05/06/2023) [facility] History of Past illness Narrative* Problem Noted Date Diagnosed Date Resolved Date Acute saddle pulmonary embol ism without acute cor pulmonale 10/24/2019 12/12/2019 Impaired fasting glucose 05/07/201710/2020 Hypokalemia 04/11/2016 05/07/2017 Impaired fasting glucose 08/26/2010 Cellulitis and abscess of trunk 07/16/2009 08/15/2014 Abdominal pain, right upper quadrant 11/18/2006 08/15/2014 Diarrhea 08/15/2014 Irritable bowel syndrome documented as of this encounter (statuses as of 05/07/2023) [facility] History of Past illness Narrative* Problem Noted Date Diagnosed Date Resolved Date Acute saddle pulmonary embol ism without acute cor pulmonale 10/24/2019 12/12/2019 Impaired fasting glucose 05/07/201710/2020 Hypokalemia 04/11/2016 05/07/2017 Impaired fasting glucose 08/26/2010 Cellulitis and abscess of trunk 07/16/2009 08/15/2014 Abdominal pain, right upper quadrant 11/18/2006 08/15/2014 Diarrhea 08/15/2014 Irritable bowel syndrome documented as of this encounter (statuses as of 05/11/2023) [facility] History of Past illness Narrative* Problem Noted Date Diagnosed Date Resolved Date Acute saddle pulmonary embol ism without acute cor pulmonale 10/24/2019 12/12/2019 Impaired fasting glucose 05/07/201710/2020 Hypokalemia 04/11/2016 05/07/2017 Impaired fasting glucose 08/26/2010 Cellulitis and abscess of trunk 07/16/2009 08/15/2014 Abdominal pain, right upper quadrant 11/18/2006 08/15/2014 Diarrhea 08/15/2014 Irritable bowel syndrome documented as of this encounter (statuses as of 05/18/2023) [facility] Diagnosis Tachycardia Tachycardia, unspecified Acute saddle pulmonary embolism without acute cor pulmonale (HCC) Essential hypertension, benign Hypokalemia Hypopotassemia documented [facility] Diagnosis Malignant neoplasm of upper-outer quadrant of left breast in female, estrogen receptor positive (HCC)- Primary Encounter for screening mammogram for high-risk patient documented [facility] Diagnosis Malignant neoplasm of upper-outer quadrant of left breast in female, estrogen receptor positive (HCC) Encounter for screening mammogram for high-risk patient [facility] Diagnosis Essential hypertension, benign- Primary Acute saddle pulmonary embolism without acute cor pulmonale (HCC) 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, without long- term current use of insulin, macular edema presence unspecified, unspecified retinopathy severity (HCC) Hyperlipidemia LDL goal <100 Other and unspecified hyperlipidemia Vitamin D deficiency Unspecified vitamin D deficiency documented [facility] this [facility] Diagnosis Essential hypertension, benign- Primary Vitamin D deficiency Unspecified vitamin D deficiency [facility] Diagnosis Malignant neoplasm of upper-outer quadrant of left breast in female, estrogen receptor positive (HCC) Encounter for screening mammogram for high-risk patient [facility] Diagnosis Bilateral hearing loss, unspecified hearing loss type- Primary [facility] Diagnosis Headache, unspecified headache type- Primary Sinus pressure Other diseases of nasal cavity and sinuses Bacterial sinusitis Unspecified sinusitis (chronic) Eczema, unspecified type documented [facility] this [facility] Diagnosis Weight loss- Primary Loss of weight Tachycardia Tachycardia, unspecified Other general symptoms and signs Visit for screening mammogram Other screening mammogram Type 2 diabetes mellitus without complication, without long-term current use of insulin (HCC) Fatigue, unspecified type JANICE (generalized anxiety disorder) Generalized anxiety disorder [facility] Diagnosis Central line complication, sequela- Primary Positive fecal occult blood test Nonspecific abnormal finding in stool contents [facility] Diagnosis Elevated liver enzymes Other nonspecific abnormal serum enzyme levels Weight loss Loss of weight Change in stool Nonspecific abnormal finding in stool contents Abnormal chest x-ray Other nonspecific abnormal finding of lung field [facility] Diagnosis Malignant neoplasm of upper-outer quadrant of left breast in female, estrogen receptor positive (HCC)- Primary Liver lesion Other specified disorders of liver [facility] Diagnosis Malignant neoplasm of upper-outer quadrant of left breast in female, estrogen receptor positive (HCC)- Primary Metastasis to bone (HCC) Secondary malignant neoplasm of bone and bone marrow Abnormal CT of liver Nonspecific (abnormal) findings on radiological and other examination of biliary tract Liver lesion Other specified disorders of liver [facility] Malignant neoplasm of upper-outer quadrant of left breast in female, estrogen receptor positive (HCC)- Primary Abnormal CT of liver Nonspecific (abnormal) findings on radiological and other examination of biliary tract Liver lesion Other specified disorders of liver Bone lesion Disorder of bone and cartilage, unspecified Metastasis to bone (HCC) Secondary malignant neoplasm of bone and bone marrow Hypercalcemia of malignancy Hypercalcemia Liver lesion Other specified disorders of liver [facility] Diagnosis Metastasis to bone (HCC)- Primary Secondary malignant neoplasm of bone and bone marrow Hypercalcemia of malignancy Hypercalcemia Malignant neoplasm of upper-outer quadrant of left breast in female, estrogen receptor positive (HCC) Liver lesion Other specified disorders of liver [facility] Diagnosis Malignant neoplasm of upper-outer quadrant of left breast in female, estrogen receptor positive (HCC)- Primary Liver lesion Other specified disorders of liver [facility] Diagnosis Malignant neoplasm of upper-outer quadrant of left breast in female, estrogen receptor positive (HCC)- Primary Metastasis to bone (HCC) Secondary malignant neoplasm of bone and bone marrow Hypercalcemia of malignancy Hypercalcemia [facility] Diagnostic Procedure Only (Routine) - Authorized Specialty Diagnoses / Procedures Referred By Clem t Referred To Contact [facility] Diagnoses Malignant neoplasm of upper-outer quadrant of left breast in female, estrogen receptor positive (HCC) Encounter for screening mammogram for high-risk patient Procedures MOISES SCREENING W XI SCREENING DIGITAL BREAST TOMOSYNTHESIS BI SCREENING MAMMOGRAPHY BI 2-VIEW BREAST INC CAD Jamilah Bates APRN.[employer] CONSULTANT [address] [place] [address] [facility] [address] [place] [phone] Referral ID Status Reason Start Date Expiration Date Visits Requested Visits Authorized [id number] Authorized Auto-Generat ed Referral 11/26/2021 12/26/2022 1 1 [facility] for referral (narrative)* Diagnostic Procedure Only (Routine) - Authorized Specialty Diagnoses / Procedures Referred By Clem t Referred To Contact [facility] Diagnoses Visit for screening mammogram Procedures MOISES SCREENING SCREENING MAMMOGRAPHY BI 2-VIEW BREAST INC CAD Codie Bonner APRN.[employer]ION CONSULTANT [address] [place] [address] [facility] [address] [place] [phone] Referral ID Status Reason Start Date Expiration Date Visits Requested Visits Authorized [id number] Authorized Auto-Generat ed Referral 04/27/2023 05/26/2024 1 1 * MRI/CT (Routine) - Authorized Specialty Diagnoses / Procedures Referred By Clem t Referred To Contact CT [facility] Diagnoses Weight loss Procedures CT ABD/PEL W IVCON CT ABD & PELVIS W/CONTRAST Codie Bonner APRN.[employer] CONSULTANT [address] [place] [address] [place] [id number] Referral ID Status Reason Start Date Expiration Date Visits Requested Visits Authorized [id number] Authorized Auto-Generat ed Referral 04/27/2023 05/26/2024 1 1 * Outpatient Procedure (Routine) - Pending Review Specialty Diagnoses / Procedures Referred By Contac t Referred To Contact [facility] Diagnoses Tachycardia Procedures ECG COMPLETE ECG ROUTINE ECG W/LEAST 12 LDS W/I&R Codie Bonner APRN.[employer] CONSULTANT [address] [place] [address] [facility] [address] [place] [address] Referral ID Status Reason Start Date Expiration Date Visits Requested Visits Authorized [id number] Pending Review Auto-Generat ed Referral 04/27/2023 04/26/2024 1 1 [facility]* Diagnostic Procedure Only (Routine) - Closed Specialty Diagnoses / Procedures Referred By Contac t Referred To Contact [facility] Diagnoses Malignant neoplasm of upper-outer quadrant of left breast in female, estrogen receptor positive (HCC) Encounter for screening mammogram for high-risk patient Procedures MOISES SCREENING W XI SCREENING DIGITAL BREAST TOMOSYNTHESIS BI SCREENING MAMMOGRAPHY BI 2-VIEW BREAST INC CAD Jamilah Bates, DAVID.[employer] F[employer]ION CONSULTANT [address] [place] [address] [facility] [address] [place] [address] Referral ID Status Reason Start Date Expiration Date V isits Requested Visits Authorized [id number] Closed Auto-Generate d Referral 11/26/2021 12/26/2022 1 1 [facility] Reason for Referral Specialty Diagnoses / Procedures Referred By Contac t Referred To Contact Diagnoses Headache, unspecified headache type Penelope Carpenter APRN.[employer] CONSULTANT [address] [place] [address] Referral ID Status Reason Start Date Expiration Date Visits Re quested Visits Authorized [id number] Closed 1 1 Specialty Diagnoses / Procedures Referred By Contac t Referred To Contact General Surgery Diagnoses Central line complication, sequela Positive fecal occult blood test Procedures CONSULT TO GENERAL SURGERY OFFICE/OUTPATIENT [facility] 60-74 MINUTES Codie Bonner, ORE TRIMMER.ORACLE FUSION CONSULTANT [address] [place] [address] Referral ID Status Reason Start Date Expiration Date Visits Requested Visits Authorized [id number] Authorized PCP Requested Referral 05/02/2024 1 1 Specialty Diagnoses / Procedures Referred By Contac t Referred To Contact CT [facility] Diagnoses Weight loss Abnormal chest x-ray Procedures CT CHEST W IVCON DIAGNOSTIC COMPUTED TOMOGRAPHY THORAX W/CONTRAST Codie Bonner, DAVID.[employer] CONSULTANT [address] [place] [address] [place] [address] Referral ID Status Reason Start Date Expiration Date V isits Requested Visits Authorized [id number] Closed Auto-Generate d Referral 05/03/2023 06/01/2024 1 1 Specialty Diagnoses / Procedures Referred By Contac t Referred To Contact CT [facility] Diagnoses Elevated liver enzymes Weight loss Change in stool Procedures CT ABD/PEL W IVCON CT ABD & PELVIS W/CONTRAST Codie Bonner, ORE TRIMMER.[employer]ACLE F[employer]ION CONSULTANT [address] [place] [address] [place] [address] Referral ID Status Reason Start Date Expiration Date V isits Requested Visits Authorized [id number] Closed Auto-Generate d Referral 04/28/2023 05/27/2024 1 1 Specialty Diagnoses / Procedures Referred By Contac t Referred To Contact [facility] Diagnoses Abnormal CT of liver Liver lesion Metastasis to bone (HCC) Malignant neoplasm of upper-outer quadrant of left breast in female, estrogen receptor positive (HCC) Procedures MRI CERVICAL SPINE WO/W IVCON MRI SPINAL CANAL CERVICAL W/O & W/CONTR MATRL Efrain Crawford DO [address] [place] [address] [place] [address] Referral ID Status Reason Start Date Expiration Date Visits Requested Visits Authorized [id number] Authorized Auto-Generat ed Referral 06/02/2024 1 1 Specialty Diagnoses / Procedures Referred By Contac t Referred To Contact [facility] Diagnoses Abnormal CT of liver Liver lesion Metastasis to bone (HCC) Malignant neoplasm of upper-outer quadrant of left breast in female, estrogen receptor positive (HCC) Procedures MRI BRAIN WO/W IVCON MRI BRAIN BRAIN STEM W/O W/CONTRAST MATERIAL Efrain Crawford, DO [address] [place] [address] [place] [address] Referral ID Status Reason Start Date Expiration Date Visits Requested Visits Authorized [id number] Authorized Auto-Generat ed Referral 3 06/02/2024 1 1 Medications Administered Section Inactive Administered Medications - up to 3 most recent administrations Medication Order MAR Action Action Date Dose Rate Site acetaminophen 650 mg tab(s) (TYLENOL) 650 mg, ORAL, ONCE, 1 dose, On Wed05/04/23 at 1130, Give 30 minutes before infusion. No more than 4000 mg of acetaminophen should be given per day (FROM ALL SOURCES), If ordered PRN for pain, patient/guardian may elect to receive this medication for higher pain levels INSTEAD of the opioid, if preferred: N/A Given 05/04/2023 11:47 AM EST 650 mg NaCl 0.9% iv infusion 1,000 mL/hr (rounded to 999 mL/hr), INTRAVENOUS, Administer over 1 Hours, ONCE, 1 dose, On Wed05/04/23 at 1130, over 2 hours. New Bag/Syringe/Bottl e 05/04/2023 11:40 AM EST 1,000 mL/hr 999 mL/hr zoledronic ds-wahicblp-6.9NaCl 4 mg iv piggyback 100 mL (ZOMETA) 4 mg, INTRAVENOUS, Administer over 15 Minutes, ONCE, 1 dose, On Wed05/04/23 at 1130, Hazardous Potential Reproductive Risk Drug: Use appropriate PPE. New Bag/Syringe/Bottl e 05/04/2023 11:51 AM EST 4 mg Inactive Administered Medications - up to 3 most recent administrations Medication Order MAR Action Action Date Dose Rate Site NaCl 0.9% iv infusion 1,000 mL/hr (rounded to 999 mL/hr), INTRAVENOUS, Administer over 1 Hours, ONCE, 1 dose, On Wed05/06/23 at 1130, over 2 hours. New Bag/Syringe/Bottle 05/06/2023 11:26 AM EST 1,000 mL/hr 999 mL/hr Summary Purpose Family History No Family History Records FoundNo Family History Records Found Advance Directives No Advanced Directives Records FoundNo Advanced Directives Records Found Additional Source Comments Source Comments (unrecognize d section and content) In the event this informatio n is protected by the Federal Confidentiality of Alcohol and Drug Abuse Patient Records regulations: The Federal rules restrict any use of the information to criminally investigate or prosecute any alcohol or drug abuse patient.[facility] the event this information is protected by the Federal Confidentiality of Alcohol and Drug Abuse Patient Records regulations: The Federal rules restrict any use of the information to criminally investigate or prosecute any alcohol or drug abuse patient.[facility] the event this information is protected by the Federal Confidentiality of Alcohol and Drug Abuse Patient Records regulations: The Federal rules restrict any use of the information to criminally investigate or prosecute any alcohol or drug abuse patient.[facility] the event this information is protected by the Federal Confidentiality of Alcohol and Drug Abuse Patient Records regulations: The Federal rules restrict any use of the information to criminally investigate or prosecute any alcohol or drug abuse patient.[facility] the event this information is protected by the Federal Confidentiality of Alcohol and Drug Abuse Patient Records regulations: The Federal rules restrict any use of the information to criminally investigate or prosecute any alcohol or drug abuse patient.[facility] the event this information is protected by the Federal Confidentiality of Alcohol and Drug Abuse Patient Records regulations: The Federal rules restrict any use of the information to criminally investigate or prosecute any alcohol or drug abuse patient.[facility] HospitalIn the event this information is protected by the Federal Confidentiality of Alcohol and Drug Abuse Patient Records regulations: The Federal rules restrict any use of the information to criminally investigate or prosecute any alcohol or drug abuse patient.[facility] Hospital[facility] the event this information is protected by the Federal Confidentiality of Alcohol and Drug Abuse Patient Records regulations: The Federal rules restrict any use of the information to criminally investigate or prosecute any alcohol or drug abuse patient.[facility] HospitalIn the event this information is protected by the Federal Confidentiality of Alcohol and Drug Abuse Patient Records regulations: The Federal rules restrict any use of the information to criminally investigate or prosecute any alcohol or drug abuse patient.[facility] HospitalIn the event this information is protected by the Federal Confidentiality of Alcohol and Drug Abuse Patient Records regulations: The Federal rules restrict any use of the information to criminally investigate or prosecute any alcohol or drug abuse patient.[facility] HospitalIn the event this information is protected by the Federal Confidentiality of Alcohol and Drug Abuse Patient Records regulations: The Federal rules restrict any use of the information to criminally investigate or prosecute any alcohol or drug abuse patient.[facility] HospitalIn the event this information is protected by the Federal Confidentiality of Alcohol and Drug Abuse Patient Records regulations: The Federal rules restrict any use of the information to criminally investigate or prosecute any alcohol or drug abuse patient.[facility] HospitalIn the event this information is protected by the Federal Confidentiality of Alcohol and Drug Abuse Patient Records regulations: The Federal rules restrict any use of the information to criminally investigate or prosecute any alcohol or drug abuse patient.[facility] HospitalIn the event this information is protected by the Federal Confidentiality of Alcohol and Drug Abuse Patient Records regulations: The Federal rules restrict any use of the information to criminally investigate or prosecute any alcohol or drug abuse patient.[facility] HospitalIn the event this information is protected by the Federal Confidentiality of Alcohol and Drug Abuse Patient Records regulations: The Federal rules restrict any use of the information to criminally investigate or prosecute any alcohol or drug abuse patient.[facility] HospitalIn the event this information is protected by the Federal Confidentiality of Alcohol and Drug Abuse Patient Records regulations: The Federal rules restrict any use of the information to criminally investigate or prosecute any alcohol or drug abuse patient.[facility] HospitalIn the event this information is protected by the Federal Confidentiality of Alcohol and Drug Abuse Patient Records regulations: The Federal rules restrict any use of the information to criminally investigate or prosecute any alcohol or drug abuse patient.[facility] HospitalIn the event this information is protected by the Federal Confidentiality of Alcohol and Drug Abuse Patient Records regulations: The Federal rules restrict any use of the information to criminally investigate or prosecute any alcohol or drug abuse patient.[facility] HospitalIn the event this information is protected by the Federal Confidentiality of Alcohol and Drug Abuse Patient Records regulations: The Federal rules restrict any use of the information to criminally investigate or prosecute any alcohol or drug abuse patient.[facility]In the event this information is protected by the Federal Confidentiality of Alcohol and Drug Abuse Patient Records regulations: The Federal rules restrict any use of the information to criminally investigate or prosecute any alcohol or drug abuse patient.[facility] HospitalIn the event this information is protected by the Federal Confidentiality of Alcohol and Drug Abuse Patient Records regulations: The Federal rules restrict any use of the information to criminally investigate or prosecute any alcohol or drug abuse patient.[facility] HospitalIn the event this information is protected by the Federal Confidentiality of Alcohol and Drug Abuse Patient Records regulations: The Federal rules restrict any use of the information to criminally investigate or prosecute any alcohol or drug abuse patient.[facility] HospitalIn the event this information is protected by the Federal Confidentiality of Alcohol and Drug Abuse Patient Records regulations: The Federal rules restrict any use of the information to criminally investigate or prosecute any alcohol or drug abuse patient.[facility] HospitalIn the event this information is protected by the Federal Confidentiality of Alcohol and Drug Abuse Patient Records regulations: The Federal rules restrict any use of the information to criminally investigate or prosecute any alcohol or drug abuse patient.[facility] HospitalIn the event this information is protected by the Federal Confidentiality of Alcohol and Drug Abuse Patient Records regulations: The Federal rules restrict any use of the information to criminally investigate or prosecute any alcohol or drug abuse patient.[facility] HospitalIn the event this information is protected by the Federal Confidentiality of Alcohol and Drug Abuse Patient Records regulations: The Federal rules restrict any use of the information to criminally investigate or prosecute any alcohol or drug abuse patient.[facility] HospitalIn the event this information is protected by the Federal Confidentiality of Alcohol and Drug Abuse Patient Records regulations: The Federal rules restrict any use of the information to criminally investigate or prosecute any alcohol or drug abuse patient.[facility] HospitalIn the event this information is protected by the Federal Confidentiality of Alcohol and Drug Abuse Patient Records regulations: The Federal rules restrict any use of the information to criminally investigate or prosecute any alcohol or drug abuse patient.[facility] HospitalIn the event this information is protected by the Federal Confidentiality of Alcohol and Drug Abuse Patient Records regulations: The Federal rules restrict any use of the information to criminally investigate or prosecute any alcohol or drug abuse patient.[facility] Reason for Visit (unrecogniz ed section and content) Specialty Diagnoses / Procedures Referred By Clem t Referred To Contact CT IMAGING Diagnoses Elevated liver enzymes Weight loss Change in stool Procedures CT ABD/PEL W IVCON CT ABD & PELVIS W/CONTRAST Codie Bonner, ORE TRIMMER.ORACLE FUSION CONSULTANT [address] [place] [address] [place] [id number] Referral ID Status Reason Start Date Expiration Date V isits Requested Visits Authorized [id number] Closed Auto-Generate d Referral 04/28/2023 05/27/2024 1 1 Reason Comments Refill Request Reason Comments handicap parking placards Reason Onset Date Comments Refill Request 10/06/2021 Refill Request 10/16/2021 Reason Onset Date Comments Refill Request 11/25/2021 Reason Comments Results Reason Onset Date Comments Opened In Error 04/21/2022 Reason Onset Date Comments Refill Request 07/17/2022 Reason Comments Recheck 2 week follow up- re view labs/ BP check Reason Onset Date Comments Refill Request 01/07/2023 Reason Onset Date Comments Population Health Navigation Outreach 02/25/2023 ACO BP AND DM Reason Comments Follow Up Reason Comments Neck Pain Rash Alexandro legs & back Reason Comments Insurance Authorization Reason Comments Multiple Concerns Constipation; weakne ss; loss of appetite; not sleeping well- since February Reason Comments Follow Up Reason Comments Question Reason Comments Orders Reason Comments Lift Chair Prescription Reason Comments Established Patient Specialty Diagnoses / Procedures Referred By Contac t Referred To Contact Diagnoses Abnormal CT of liver Liver lesion Bone lesion Procedures CONSULT TO HEMATOLOGY/ONCOLOGY OFFICE/OUTPATIENT [facility] 60-74 MINUTES Codie Bonner APRN.ORACLE FUSION CONSULTANT [address] [place] [address] Referral ID Status Reason Start Date Expiration Date V isits Requested Visits Authorized [id number] Closed PCP Requested Referral 05/03/2023 05/02/2024 1 1 Reason Comments Non-Chemotherapy Treatment Specialty Diagnoses / Procedures Referred By Contac t Referred To Contact Diagnoses Malignant neoplasm of upper-outer quadrant of left breast in female, estrogen receptor positive (HCC) Metastasis to bone (HCC) Hypercalcemia of malignancy Efrain Crawford, DO [address] [place] [address] [facility] [address] [place] [address] Referral ID Status Reason Start Date Expiration Date V isits Requested Visits Authorized [id number] Authorized 05/04/2023 08/02/2023 99 99 Reason Comments Patient Question Care Teams (unrecognized sec tion and content) Middleware Solutions Architect Relationship Specialty Start Date End Date Lars Powers MD [address] [place] [address] PCP - General Family Practice 04/16/21 Michele Messer MD, [address] [facility] [place] [address] Physician Radiation Oncology 4/24/18 Caity Montenegro RN Specialty Senior Environmental Technician Oncology 11/29/17 Neno Styles [address] [place], [place] [address] Physician Ophthalmology 07/01/20 Middleware Solutions Architect Relationship Specialty Start Date End Date Lars Powers MD [address] [facility] [place] [address] PCP - General Family Practice 04/16/21 Michele Messer MD, [address] [place] [address] Physician Radiation Oncology 09/14/17 Caity Montenegro RN Specialty Senior Environmental Technician Oncology 11/29/17 Neno Styles [address] [place], [place] [address] Physician Ophthalmology 07/01/20 Middleware Solutions Architect Relationship Specialty Start Date End Date Lars Powers MD [address] [facility] [place] [address] PCP - General Family Practice 04/16/21 Michele Messer MD, MD [address] [facility] [address] Physician Radiation Oncology 09/14/17 Caity Montenegro RN Specialty Senior Environmental Technician Oncology 11/29/17 Neno Styles [address] [place] [address] Physician Ophthalmology 07/01/20 Middleware Solutions Architect Relationship Specialty Start Date End Date Lars Powers MD [address] [facility] [place] [address] PCP - General Family Practice 04/16/21 Michele Messer MD, [address] [address] Physician Radiation Oncology 09/14/17 Caity Montenegro RN Specialty Senior Environmental Technician Oncology 11/29/17 Neno Styles [address] [place], [place] [address] Physician Ophthalmology 07/01/20 Middleware Solutions Architect Relationship Specialty Start Date End Date Lars Powers MD [address] [facility] [place] [address] PCP - General Family Medicine 04/16/21 Michele Messer MD, [address] [place] [address] Physician Radiation Oncology 09/14/17 Caity Montenegro RN Specialty Senior Environmental Technician Oncology 11/29/17 Neno Styles [address] [place] [address] Physician Ophthalmology 07/01/20 Middleware Solutions Architect Relationship Specialty Start Date End Date Lars Powers MD [address] [facility] [place] [address] PCP - General Family Medicine 04/16/21 Michele Messer MD, MD [address] [facility] [address] Physician Radiation Oncology 09/14/17 Caity Montenegro RN Specialty Senior Environmental Technician Oncology 11/29/17 Neno Styles [address] [place] [address] Physician Ophthalmology 07/01/20 Middleware Solutions Architect Relationship Specialty Start Date End Date Lars Powers MD [address] [facility] [place] [address] PCP - General Family Medicine 04/16/21 Michele Messer MD, [address] [place] [address] Physician Radiation Oncology 09/14/17 Caity Montenegro RN Specialty Senior Environmental Technician Oncology 11/29/17 Neno Styles [address] [place], [place] [address] Physician Ophthalmology 07/01/20 Middleware Solutions Architect Relationship Specialty Start Date End Date Lars Powers MD [address] [place], [place] [address] PCP - General Family Medicine 04/16/21 Michele Messer MD, [address] [place], [place] [address] Physician Radiation Oncology 09/14/17 Caity Montenegro RN Specialty Senior Environmental Technician Oncology 11/29/17 Neno Styles [facility] [place] [address] Physician Ophthalmology 07/01/20 Middleware Solutions Architect Relationship Specialty Start Date End Date Lars Powers MD [address] [place], [place] [address] PCP - General Family Medicine 04/16/21 Michele Messer MD, [address] [place], [place] [address] Physician Radiation Oncology 09/14/17 Caity Montenegro RN Specialty Senior Environmental Technician Oncology 11/29/17 Neno Styles [address] [place], [place] [address] Physician Ophthalmology 07/01/20 Middleware Solutions Architect Relationship Specialty Start Date End Date Lars Powers MD [address] [place], [place] [address] PCP - General Family Medicine 04/16/21 Michele Messer MD, [address] [place], [place] [address] Physician Radiation Oncology 09/14/17 Caity Montenegro RN Specialty Senior Environmental Technician Oncology 11/29/17 Neno Styles [address] [place], [place] [address] Physician Ophthalmology 07/01/20 Middleware Solutions Architect Relationship Specialty Start Date End Date Lars Powers MD [address] [place], [place] [address] PCP - General Family Medicine 04/16/21 Michele Messer MD, [address] [place] [address] Physician Radiation Oncology 09/14/17 Caity Montenegro RN Specialty Senior Environmental Technician Oncology 11/29/17 Neno Styles [address] [place] [address] Physician Ophthalmology 07/01/20 Middleware Solutions Architect Relationship Specialty Start Date End Date Lars Powers MD [address] [place], [place] [address] PCP - General Family Medicine 04/16/21 Michele Messer MD, [address] [facility] [place], [place] [id number] Physician Radiation Oncology 09/14/17 Caity Montenegro RN Specialty Senior Environmental Technician Oncology 11/29/17 Neno Styles [address] [place], [place] [address] Physician Ophthalmology 07/01/20 Middleware Solutions Architect Relationship Specialty Start Date End Date Lars Powers MD [address] [place] [address] PCP - General Family Medicine 04/16/21 Michele Messer MD, [address] [place] [address] Physician Radiation Oncology 09/14/17 Caity Montenegro RN Specialty Senior Environmental Technician Oncology 11/29/17 Neno Styles [address] [place] [address] Physician Ophthalmology 07/01/20 Middleware Solutions Architect Relationship Specialty Start Date End Date Lars Powers MD [address] [place] [address] PCP - General Family Medicine 04/16/21 Michele Messer MD, [address] [place] [address] Physician Radiation Oncology 09/14/17 Caity Montenegro RN Specialty Senior Environmental Technician Oncology 11/29/17 Neno Styles [address] [place] [address] Physician Ophthalmology 07/01/20 Middleware Solutions Architect Relationship Specialty Start Date End Date Lars Powers MD [address] [place] [address] PCP - General Family Medicine 04/16/21 Michele Messer MD, [address] [place] [address] Physician Radiation Oncology 09/14/17 Caity Montenegro RN Specialty Senior Environmental Technician Oncology 11/29/17 Neno Styles [address] [place] [address] Physician Ophthalmology 07/01/20 Middleware Solutions Architect Relationship Specialty Start Date End Date Lars Powers MD [address] [place], [place] [address] PCP - General Family Medicine 04/16/21 Michele Messer MD, [address] [place] [address] Physician Radiation Oncology 09/14/17 Caity Montenegro RN Specialty Senior Environmental Technician Oncology 11/29/17 Neno Styles [address] [place] [address] Physician Ophthalmology 07/01/20 Middleware Solutions Architect Relationship Specialty Start Date End Date Lars Powers MD [address] [place], [place] [address] PCP - General Family Medicine 04/16/21 Michele Messer MD, [address] [place] [address] Physician Radiation Oncology 09/14/17 Caity Montenegro RN Specialty Senior Environmental Technician Oncology 11/29/17 Neno Styles [address] [place], [place] [address] Physician Ophthalmology 07/01/20 Middleware Solutions Architect Relationship Specialty Start Date End Date Lars Powers MD [address] [place] [address] PCP - General Family Medicine 04/16/21 Michele Messer MD, [address] [facility] [place] [address] Physician Radiation Oncology 09/14/17 Caity Montenegro RN Specialty Senior Environmental Technician Oncology 11/29/17 Neno Styles [address] [place] [address] Physician Ophthalmology 07/01/20 Codie Bonner APRN.ORACLE FUSION CONSULTANT [address] [place] [address] Family Medicine 05/04/23 Middleware Solutions Architect Relationship Specialty Start Date End Date Lars Powers MD [address] [place] [address] PCP - General Family Medicine 04/16/21 Michele Messer MD, [address] [facility] [place] [address] Physician Radiation Oncology 09/14/17 Caity Montenegro RN Specialty Senior Environmental Technician Oncology 11/29/17 Neno Styles [address] [place] [address] Physician Ophthalmology 07/01/20 Codie Bonner APRN.ORACLE FUSION CONSULTANT [address] [place] [address] Family Medicine 05/04/23 Middleware Solutions Architect Relationship Specialty Start Date End Date Lars Powers MD [address] [place] [address] PCP - General Family Medicine 04/16/21 Michele Messer MD, [address] [place] [address] Physician Radiation Oncology 09/14/17 Caity Montenegro RN Specialty Senior Environmental Technician Oncology 11/29/17 Neno Styles [address] [place] [address] Physician Ophthalmology 07/01/20 Codie Bonner APRN.ORACLE FUSION CONSULTANT [address] [place] [address] Family Medicine 05/04/23 Middleware Solutions Architect Relationship Specialty Start Date End Date Lars Powers MD [address] [place] [address] PCP - General Family Medicine 04/16/21 Michele Messer MD, [address] [place], [place] [address] Physician Radiation Oncology 09/14/17 Caity Montenegro RN Specialty Senior Environmental Technician Oncology 11/29/17 Neno Styles [address] [place] [address] Physician Ophthalmology 07/01/20 Codie Bonner APRN.ORACLE FUSION CONSULTANT [address] [place] [address] Family Medicine 05/04/23 Middleware Solutions Architect Relationship Specialty Start Date End Date Lars Powers MD [address] [place] [address] PCP - General Family Medicine 04/16/21 Michele Messer MD, [address] [place] [address] Physician Radiation Oncology 09/14/17 Caity Montenegro RN Specialty Senior Environmental Technician Oncology 11/29/17 Neno Styles [address] [place] [address] Physician Ophthalmology 07/01/20 Codie Bonner APRN.ORACLE FUSION CONSULTANT [address] [place] [address] Family Medicine 05/04/23 Middleware Solutions Architect Relationship Specialty Start Date End Date Lars Powers MD [address] [place] [address] PCP - General Family Medicine 04/16/21 Michele Messer MD, [address] [place] [address] Physician Radiation Oncology 09/14/17 Caity Montenegro RN Specialty Senior Environmental Technician Oncology 11/29/17 Neno Styles [address] [place] [address] Physician Ophthalmology 07/01/20 Codie Bonner APRN.ORACLE FUSION CONSULTANT [address] [place] [address] Family Medicine 05/04/23 Middleware Solutions Architect Relationship Specialty Start Date End Date Lars Powers MD [address] [place] [address] PCP - General Family Medicine 04/16/21 Michele Messer MD, [address] [place], [place] [address] Physician Radiation Oncology 09/14/17 Caity Montenegro RN Specialty Senior Environmental Technician Oncology 11/29/17 Nneo Styles [address] [place] [address] Physician Ophthalmology 07/01/20 Codie Bonner APRN.ORACLE FUSION CONSULTANT [address] [place] [address] Family Medicine 05/04/23 Middleware Solutions Architect Relationship Specialty Start Date End Date Lars Powers MD [address] [place] [address] PCP - General Family Medicine 04/16/21 Michele Messer MD, [address], [place] [address] Physician Radiation Oncology 09/14/17 Caity Montenegro RN Specialty Senior Environmental Technician Oncology 11/29/17 Neno Styles [address] [place] [address] Physician Ophthalmology 07/01/20 Codie Bonner APRN.ORACLE FUSION CONSULTANT [address] [place], [place] [id number] Family Medicine 05/04/23 INFORMATION SOURCE (unrecogn ized section and content) DATE CREATED AUTHOR [facility]2023 [facility] FOR RECORDS PERTAINING TO PATIENTS WHO ARE OR HAVE BEEN ENROLLED IN A CHEMICAL DEPENDENCY/SUBSTANCEABUSE PROGRAM, SOME INFORMATION MAY BE OMITTED. This clinical summary was aggregated from multiple sources. Caution should be exercised in using it in the provision of clinical care. This summary normalizes information from multiple sources, and as a consequence, information in this document may materially change the coding, format and clinical context of patient data. In addition, data may be omitted in some cases. CLINICAL DECISIONS SHOULD BE BASED ON THE PRIMARY CLINICAL RECORDS. [facility]. provides no warranty or guarantee of the accuracy or completeness of information in this document.
[2023-05-20 23:42] LABS: Hematocrit 30.1 % (37-47); Hemoglobin 9.3 g/dL (12.0-15.0); Mean Corp Hgb Conc 30.9 g/dL (32-36); Mean Corpuscular Volume 97.1 fL (81-99); Mean Platelet Vol. 10.5 fl (6.2-12.0); POSITIVE COUNT YES; POSITIVE MORPHOLOGY YES; Platelet Count 97 K/mm3 (150-450); RBC Distribution Width CV 20.9 % (11.6-14.6); RBC Distribution Width SD 74.1 fl (35.1-43.9); White Blood Count 6.5 K/mm3 (4.4-11.0)
[2023-05-20 23:56] LABS: Anion Gap 7 (5-15); BUN 22 mg/dL (7-18); BUN/Creat Ratio 21.2 RATIO (10-20); Calcium,Total 8.4 mg/dL (8.5-10.1); Chloride 108 mmol/L (98-107); Creatinine, Serum 1.04 mg/dL (0.55-1.02); Differential Indicated MANUAL DIFF; EST Glomerular Filtration Rate 54 mL/min (>60); Est Glom Filt Rate - Afr Amer 66 mL/min (>60); Glucose 100 mg/dL (74-106); Potassium 4.7 mmol/L (3.5-5.1); Sodium Level 138 mmol/L (136-145)
--- NOTE | 2023-05-21 00:13 | EDS_ITS ---
HPI History of Present Illness Chief Complaint: Weakness Narrative Narrative: 77-year-old female presenting with weakness. Patient presents with son and . Apparently she was looking poorly earlier. She has been more confused for the last 2 weeks. 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 Apparently she has metastatic lesions in the skull as well as a C-spine. Patient had these images done recently with [facility] and they see Dr. Crawford. Patient is supposed to IV fluids given tomorrow as well as lab work. Patient's family states that she had some high potassium levels at 1 point. Her son states that he did her state that she did not want to go through chemotherapy when she was talking on the phone with somebody from [facility]. When I asked her this she states she just wants to go home. She is able to identify body in the room. There is no reported fevers, chills. I do believe she is breathing heavier than usual. She has history of PE but is on Eliquis. No black or bloody stools are noted. Her states she has 4 glasses of water daily and her diet is poor. Today she had a protein shake, onion rings, fried mushrooms. [facility] Medical History Diabetes Hemorrhoids Hx of breast cancer Hypertension IBS (irritable bowel syndrome) Vitamin D deficiency Home Medications hydrochlorothiazide 12.5 mg tablet 12.5 mg PO QDAY water pill 07/01/17 [History Last Taken Unknown] losartan 50 mg tablet (Cozaar) 50 mg PO LUNCH blood pressure 07/01/17 [History Last Taken Unknown] potassium chloride 20 mEq tablet,extended release 20 meq PO LUNCH supplement 07/01/17 [History Last Taken Unknown] anastrozole 1 mg tablet 1 tab PO DAILY cancer treatment 10/13/19 [History Last Taken Unknown] apixaban 5 mg tablet 5 mg PO BID #60 tabs 10/30/19 [Rx Last Taken Unknown] ciprofloxacin HCl 500 mg tablet (Cipro) 500 mg PO BID 10/30/19 [History Last Taken Unknown] lactulose 10 gram oral packet 20 g PO DAILY #30 ea 05/21/23 [Rx Last Taken Unknown] ondansetron 4 mg disintegrating tablet 4 mg PO Q8H PRN PRN Nausea #30 tabs 05/21/23 [Rx Last Taken Unknown] Allergy/AdvReac Type Severity Reaction Status Date / Time atorvastatin [From Lipitor] Allergy Mild Unknown Verified 05/20/23 22:21 ergocalciferol (vitamin D2) Allergy Mild Unknown Verified 05/20/23 22:21 [From Vitamin D2] Family History Mother Breast cancer Father Heart disease Hypertension Surgical History History of partial mastectomy of right breast History of removal of Port-a-Cath Port-a-cath in place S/P colonoscopy S/P hysterectomy S/P lumpectomy of breast S/P lumpectomy, left breast Masterson node Social History Smoking Status: Never smoker second hand exposure: No alcohol intake: never substance use type: does not use caffeine: Yes what type of physical activity do you participate in: none frequency: does not exercise seatbelt use: always ROS ROS ED Constitutional Constitutional ED: Denies chills or fever(s) Eyes Eyes: Denies change in vision or diplopia ENT ENT ED: Denies rhinorrhea or sore throat Cardiovascular Cardiovascular: Denies chest pain EXAM Physical Exam Const Vital Signs: 05/20/23 22:23 05/20/23 22:26 05/20/23 23:25 Temperature 96.6 F L 96.6 F L Temperature Source Temporal Temporal Pulse Rate 96 96 Respiratory Rate 18 18 Respiratory Effort Respiratory Pattern Blood Pressure 156/67 H 156/67 H Blood Pressure Mean 96 96 Pulse Ox 98 98 Oxygen Delivery Method Room Air Room Air Room Air 05/20/23 23:25 05/20/23 23:35 05/20/23 23:21 Temperature Temperature Source Pulse Rate Respiratory Rate 16 Respiratory Effort Normal Non-Labored Respiratory Pattern Normal Blood Pressure Blood Pressure Mean Pulse Ox Oxygen Delivery Method Room Air 05/21/23 00:21 05/21/23 01:00 05/21/23 02:00 Temperature Temperature Source Pulse Rate 90 88 86 Respiratory Rate 24 H 16 17 Respiratory Effort Respiratory Pattern Blood Pressure 156/66 H 153/73 H Blood Pressure Mean 96 99 Pulse Ox 96 97 97 Oxygen Delivery Method Room Air Room Air Room Air 05/21/23 03:00 05/21/23 03:36 Temperature Temperature Source Pulse Rate 84 91 Respiratory Rate 17 27 H Respiratory Effort Respiratory Pattern Blood Pressure 146/67 H Blood Pressure Mean 93 Pulse Ox 97 95 Oxygen Delivery Method Room Air Room Air Positive well nourished General Appearance ED: NAD; Negative for pallor HEENT Reports dry mucous membranes Negative for trauma Mouth ED: Yes dry mucous membranes Mouth: dry mucous membranes Eyes Negative for PERRL or EOMs intact bilaterally Chest Wall inspection of chest normal Resp normal respiratory effort and clear to auscultation bilaterally Auscultation: Negative for rales, rhonchi or wheezes Cardio regular rate and regular rhythm GI normal to inspection, nondistended, normoactive bowel sounds Palpation: Negative for soft or tender Neuro CN's II-XII intact bilaterally and no sensory deficits noted Sensorium / Orientation: alert Motor Exam: general weakness Psych mental status grossly normal Skin no rashes or lesions noted and no wounds General Skin Exam: Negative for jaundice or pallor MDM MDM MDM Narrative Medical decision making narrative: Patient presenting with generalized weakness. She does not have any specific complaints. Differential includes dehydration, anemia, electrolyte normalities, hyperammonemia, hypercalcemia, UTI, pneumonia. CBC will be obtained to assess white blood cell count, hemoglobin, platelets. BMP to assess renal function electrolytes. LFTs will be obtained to assess her liver function. Ammonia level be obtained due to her confusion. Urinalysis to assess for UTI. CBC shows white blood cell count of 6.5. Hemoglobin is 9.3. Family tells me she has had occult stools already. Her hemoglobin is down from 10 7. Platelets are 97. Creatinine is slightly elevated at 1.04. Patient was given a liter of normal saline. Alkaline phosphatase 281, ammonia 44, lipase 158, total bilirubin 1.20, direct bilirubin 0.61, AST 110. Urinalysis is negative for infection. Chest x-ray on my interpretation shows no acute process. EKG on my interpretation shows normal sinus rhythm with a ventricular to 95 bpm without sign of ischemic change or ectopy. Review of the medical record shows that the patient did have a CT of the chest, abdomen, pelvis with IV contrast on May 03, 2023 which shows extensive sclerotic and lytic bony lesions suspicious for metastasis noted to be in the spine and manubrium/sternum there is a questionable pathologic fracture of the sternum. These are noticed in the ribs and the right clavicle as well. In the abdomen it is noted that she has liver metastases and there are several new hepatic hypodensities which were not seen previously. There again are multiple lytic and sclerotic lesions throughout the spine that is visualized and the pelvic bones. Dr. Crawford was not on-call but I did review the record with Dr. Ulrich and we went over the cancer markers which were from the liver biopsy which showed breast cancer findings. He stated at this time that she could still be treated for cancer and did not feel comfortable telling her that she should be hospice because he does not know her and he recommended her following up with Dr. Crawford however the patient is on Eliquis and has a GI bleed. She is normotensive currently. We do not have GI on-call to discuss the case with today. I discussed the findings of all the reports extensively with the family and given my conversation with Dr. Ulrich. He recommended that I transfer the patient to [facility] or another [facility] facility for admission and then the records could be reviewed and they could speak with Dr. Crawford regarding his thoughts on her treatment. I discussed with the family that it is possible that when they get over to the other facility that they would determine that she is very advancing her cancer and could still make her hospice from there. I also discussed with them that they could just give her blood and watch her and try to treat her symptomatically. We discussed this at length because the patient admitted to cancer therapy twice and she had expressed that she did not want to go through this anymore but then also expressed to her son gregg that she just wants to go home. After an extended discussion with the family they decided to they would like to speak with hospice as they believe that looking at her condition now where she has been weak and declining over 2 weeks and now knowing that she has diffuse metastatic cancer they think that it would be better for her to be hospice and just to keep her comfortable. Nursing to discuss this with the family and they wish her to be placed in hospice. A hospice consult was placed for home and they will take her home they are until the hospice consult can be obtained. I gave her some lactulose and some Zofran as needed for nausea and for confusion. Return precautions discussed. Impression: 1. Metastatic breast cancer 2. Hyperammonemia 3. Anemia 4. GI bleed 5. Weakness Lab Data Attestation: I reviewed the patient's lab results. Labs: Laboratory Results - last 24 hr 05/20/23 05/21/23 23:23 00:34 WBC 6.5 RBC 3.10 L Hgb 9.3 L Hct 30.1 L MCV 97.1 MCH 30.0 MCHC 30.9 L RDW Std Deviation 74.1 H RDW Coeff of Vignesh 20.9 H Plt Count 97 L MPV 10.5 Neut % (Auto) Not Reportable Absolute Neuts (auto) 4.1 Absolute Lymphs (auto) 1.80 Total Counted 100 Neutrophils % (Manual) 63 Lymphocytes % (Manual) 28 Monocytes % (Manual) 5 Eosinophils % (Manual) 2 Myelocytes % 2 H Diff Path Review May foll Platelet Estimate SLT DEC Anisocytosis 2+ Sodium 138 Potassium 4.7 Chloride 108 H Carbon Dioxide 23.0 Anion Gap 7 BUN 22 H Creatinine 1.04 H Est GFR (MDRD) Af Amer 66 Est GFR (MDRD) Non-Af 54 L BUN/Creatinine Ratio 21.2 H Glucose 100 Calcium 8.4 L Total Bilirubin 1.20 H Direct Bilirubin 0.61 H AST 110 H ALT 56 Alkaline Phosphatase 281 H Ammonia 44.0 H Total Protein 6.0 L Albumin 2.7 L Globulin 3.3 Lipase 158 H Urine Color Yellow Urine Clarity Clear Urine pH 7.0 Ur Specific Victor 1.005 Urine Protein Negative Urine Glucose (UA) Normal Urine Ketones Negative Urine Occult Blood Negative Urine Nitrite Negative Urine Bilirubin Negative Urine Urobilinogen Normal Ur Leukocyte Esterase Negative Urine RBC 0 SEEN Urine WBC 0 SEEN Ur Squamous Epith Cells 0 SEEN Urine Bacteria 0 SEEN Urine Mucus 0 SEEN Radiography Diagnostic Testing: Clinical Impression(s) from Imaging Studies Chest X-Ray 05/20/23 23:30 IMPRESSION: No radiographic evidence of acute cardiopulmonary disease. Electronically Signed: Irene Taylor MD at 23:57 EST Reading Location ID and State: [id number] / Tel , Service support , Discharge Plan Triage Chief Complaint: Weakness ED Provider: Nito Hurd Dx/Rx/DC Orders Instructions: GI Bleeding Causes and Tests, Hepatic Encephalopathy, ED Weakness (Uncertain Cause) Prescriptions: New lactulose 10 gram packet 20 g PO DAILY Qty: 30 0RF ondansetron 4 mg tablet,disintegrating 4 mg PO Q8H PRN PRN (Reason: Nausea) Qty: 30 0RF No Action losartan [Cozaar] 50 mg tablet 50 mg PO LUNCH hydrochlorothiazide 12.5 mg tablet 12.5 mg PO QDAY potassium chloride 20 mEq tablet extended release 20 meq PO LUNCH ciprofloxacin HCl [Cipro] 500 mg tablet 500 mg PO BID apixaban 5 mg tablet 5 mg PO BID Qty: 60 5RF anastrozole 1 mg tablet 1 tab PO DAILY Patient Comments: TAKE 1 TABLET BY MOUTH EVERY DAY Primary Care Provider: Lars Powers Referrals: Lars Powers MD [Primary Care Provider] - Disposition Disposition: Home, Self Care
[2023-05-21 00:21] VITALS: BP 156/66; PULSE 90; RESP 24; O2SAT 96
[2023-05-21] MEDS: 0.9% Normal Saline (1000mL) 1,000 ML 999 ML IV (00:38)
[2023-05-21 00:44] LABS: Color, Urine Yellow (Yellow); Glucose, Dipstick Normal (Normal); Ketone-Dipstick Negative (Negative); Leukocyte Esterase-Dipstick Negative /ul (Negative); Nitrite-Dipstick Negative (Negative); Occult Blood-Urine Negative /ul (Negative); Protein-Dipstick Negative (Negative); Specific Gravity, Urine 1.005 (1.002-1.030); Urine Bilirubin Dipstick Negative (Negative); Urine Clarity Clear (Clear); Urine Urobilinogen Normal (Normal)
[2023-05-21 00:45] LABS: Bacteria 0 SEEN /hpf (None Seen); Mucous, Urine 0 SEEN /hpf (<or=2+); Red Blood Cells-Urine 0 SEEN /hpf (0-5); Squamous Epithelial Cells - UA 0 SEEN /hpf (5-10); White Blood Cells 0 SEEN /hpf (0-5)
[2023-05-21 01:00] VITALS: BP 153/73; PULSE 88; RESP 16; O2SAT 97
[2023-05-21 01:53] LABS: Total Cells Counted 100 (MANUAL DIFF)
[2023-05-21 01:54] LABS: Eosinophil 2 % (0-5); Lymphocyte 28 % (19-41); Monocyte 5 % (0-10); Myelocyte 2 % (0-0); Neutrophil-Segmented 63 % (47-70)
[2023-05-21 01:55] LABS: Absolute Neutrophil Count 4.1 X10^3/uL (2.0-7.7)
[2023-05-21 01:56] LABS: Anisocytosis 2+; Platelet Estimate SLT DEC (ADEQ)
[2023-05-21 01:59] LABS: AST(SGOT) 110 U/L (15-37); Alanine Aminotransfer ALT/SGPT 56 U/L (13-56); Albumin, Serum 2.7 g/dL (3.2-5.0); Alkaline Phosphatase 281 U/L (45-117); Bilirubin, Direct 0.61 mg/dL (0.00-0.30); Globulin 3.3 g/dL (2.2-4.2); Lipase 158 U/L (13-75)
[2023-05-21 02:00] VITALS: PULSE 86; RESP 17; O2SAT 97
[2023-05-21 03:00] VITALS: PULSE 84; RESP 17; O2SAT 97
[2023-05-21 03:35] VITALS: BMI 30.7
[2023-05-21 03:36] VITALS: BP 146/67; PULSE 91; RESP 27; O2SAT 95
[2023-05-21 12:14] LABS: Pathologist Review Reviewed
== END 2023-05-21 05:41 | disposition home or self-care (01) ==
PROVIDERS: Emergency Provider Student in an Organized Health Care Education/Training Program; PCP Family Medicine; Referring Provider Student in an Organized Health Care Education/Training Program; Visit Provider Student in an Organized Health Care Education/Training Program
DX: R53.1 Weakness (principal); C79.51 Secondary malignant neoplasm of bone; C79.49 Secondary malignant neoplasm of other parts of nervous system; E72.20 Disorder of urea cycle metabolism, unspecified; C50.919 Malignant neoplasm of unspecified site of unspecified female breast; E11.9 Type 2 diabetes mellitus without complications; K92.2 Gastrointestinal hemorrhage, unspecified; D64.9 Anemia, unspecified; Z86.711 Personal history of pulmonary embolism; Z79.01 Long term (current) use of anticoagulants; I10 Essential (primary) hypertension; Z90.11 Acquired absence of right breast and nipple; Z90.710 Acquired absence of both cervix and uterus
CPT/HCPCS: 71045; 80048; 80076; 81001; 82140; 83690; 85025; 87631; 93005; 94760; 96360; 96361; 99283; J7030; A4216